=== PATIENT | female | born 1965 | race Caucasian/White ===

== ENCOUNTER → 2017-08-20 | Outpatient (CLI) | payer OTHER ==
[~2017-08-20] MED LIST: ACET-749 PO; ALBU1AER9 INH; ASCO1CAP3 PO; AZEL30SP NAE; BUPR-269 PO; CALC500C70 PO; CYAN500S5 PO; DIPH25CA65 PO; EMTR1TAB PO; FLNIN NAE; GABA-113 PO; MECL1TAB42 PO; MULT-260 PO; NUTR-977 PO; NYSTATIN POWDER TOP; OMEG10002 PO; OXGN; PRAZ2CAP3 PO; PRMVC TOP; QVRINH80 INH; RANI300T2 PO; SYMIN160 INH; TRMCR130WC TOP; VITA1TAB4 PO; VNTHFA/IN INH
--- NOTE | 2017-08-20 15:49 | DIAGNOSTIC IMAGING REPORT ---
MRI OF THE RIGHT KNEE WITHOUT CONTRAST CLINICAL HISTORY: Right knee pain. Arthritis. COMPARISON STUDY: Right knee radiographs June 10, 2017. TECHNIQUE: Utilizing a 1.5 Sunitha magnet and dedicated coil, multiplanar, multiecho imaging of the right knee was performed without intravenous or intraarticular contrast. FINDINGS: Alignment of the right knee is anatomic. There is a small right knee joint effusion. There are multiple tiny intra-articular joint bodies. No suspicious marrow replacement is present. The cruciate and collateral ligaments are intact. There is a subtle free edge tear of the body of the lateral meniscus. The medial meniscus is partially extruded. There is a complex tear of the body and posterior horn of the medial meniscus. A portion of the medial meniscus extends along the medial aspect of the medial femoral condyle. There is an adjacent 1.1 cm T1 and T2 hypointense abnormality that corresponds to the calcified abnormality on radiographs June 10, 2017. This could reflect a joint body. Severe chondrosis within the medial compartment is noted with near complete loss of cartilage. There is osteophytosis and subchondral signal abnormality within the medial tibial plateau. There is moderate chondrosis within the lateral compartment and severe chondrosis within the patellofemoral compartment. IMPRESSION: 1. Severe chondrosis and osteophytosis consistent with osteoarthritis within the medial and patellofemoral compartments of the right knee. Moderate chondrosis within the lateral compartment. 2. Small right knee joint effusion with multiple small intra-articular joint bodies. 3. Complex tear of the body and posterior horn the medial meniscus which is partially extruded. Portion of meniscus extends along the medial aspect of the medial femoral condyle with an adjacent 1.1 cm calcific density that corresponds to the finding on prior radiograph. This could reflect a joint body. 4. Intact cruciate and collateral ligaments. Electronically signed by: Fernando Renteria M.D. 08/20/2017 3:48 PM Dictated Date/Time: 08/20/2017 3:42 PM
== END | disposition home or self-care (01) ==
LOC: C.MRIBC 14:33
PROVIDERS: ATTEND Orthopaedic Surgery
DX: M17.11 Unilateral primary osteoarthritis, right knee (principal); M11.261 Other chondrocalcinosis, right knee; M25.761 Osteophyte, right knee; S83.231A Complex tear of medial meniscus, current injury, right knee, initial encounter; X58.XXXA Exposure to other specified factors, initial encounter

== ENCOUNTER 2017-09-30 08:27 | Inpatient (IN) | payer OTHER ==
[2017-09-12 08:57] VITALS: BMI 40.0
--- NOTE | 2017-09-12 09:36 | PAT Medication Instructions ---
Service Date Sep 12, 2017. Current Home Medication List Albuterol Hfa (Ventolin Hfa), 2 PUFFS INH Q4H PRN for RN Azelastine Hcl-Fluticasone Pro (Dymista), 2 SPRY JORGE BID Beclomethasone Dip (Qvar), 2 PUFFS INH BID Budesonide/Formoterol Fumarate (Symbicort 160/4.5 Inhaler ), 2 PUFFS INH BID Bupropion Hcl Sr (Bupropion Hcl Sr), 1 TAB PO BID Diphenhydramine Hcl (Benadryl Allergy), 1 CAP PO HS Mlylfrrvinalm-Rfkclqxrrdj-Ymtw (Complera), 1 TAB PO HS Enteral Nutrition Formula (Ensure Plus Vanilla), 1 CAN PO TID Estrogens, Conjugated (Premarin), 1 DOSE TOP 3XWEEK Gabapentin (Neurontin), 900 MG PO TID Meclizine Hcl (Meclizine Hcl), 1 TAB PO TID PRN for RN Triamcinolone Acet (Aristocort 0.1%), 1 DOSE TOP PRN [Nystatin Powder], 1 DOSE TOP PRN Medication Instructions For Your Scheduled Surgery - Hold the following medications 24 hours prior to surgery: Triamcinolone Acet (Aristocort 0.1%), 1 DOSE TOP PRN [Nystatin Powder], 1 DOSE TOP PRN - Hold the following medications the morning of surgery: Enteral Nutrition Formula (Ensure Plus Vanilla), 1 CAN PO TID - Take the following medications the morning of surgery with a sip of water OTHERWISE NOTHING TO EAT OR DRINK AFTER MIDNIGHT: Albuterol Hfa (Ventolin Hfa), 2 PUFFS INH Q4H PRN (use if needed; BRING TO HOSPITAL) Azelastine Hcl-Fluticasone Pro (Dymista), 2 SPRY JORGE BID Beclomethasone Dip (Qvar), 2 PUFFS INH BID Budesonide/Formoterol Fumarate (Symbicort 160/4.5 Inhaler ), 2 PUFFS INH BID Gabapentin (Neurontin), 900 MG PO TID Meclizine Hcl (Meclizine Hcl), 1 TAB PO TID PRN Bupropion Hcl Sr (Bupropion Hcl Sr), 1 TAB PO BID - Take the following medications as scheduled the night before surgery: Albuterol Hfa (Ventolin Hfa), 2 PUFFS INH Q4H PRN Azelastine Hcl-Fluticasone Pro (Dymista), 2 SPRY JORGE BID Beclomethasone Dip (Qvar), 2 PUFFS INH BID Budesonide/Formoterol Fumarate (Symbicort 160/4.5 Inhaler ), 2 PUFFS INH BID Gabapentin (Neurontin), 900 MG PO TID Meclizine Hcl (Meclizine Hcl), 1 TAB PO TID PRN Enteral Nutrition Formula (Ensure Plus Vanilla), 1 CAN PO TID Smgrazeshgiba-Cfykogolawg-Oynw (Complera), 1 TAB PO HS (bring to hospital) Diphenhydramine Hcl (Benadryl Allergy), 1 CAP PO HS Bupropion Hcl Sr (Bupropion Hcl Sr), 1 TAB PO BID If you have any questions please call us at [phone] or [phone] or [phone]
[2017-09-12 10:16] LABS: URINE APPEARANCE CLOUDY (CLEAR); URINE BILIRUBIN NEG (NEG); URINE COLOR YELLOW; URINE EPITHELIAL CELL AUTO >30 /lpf (0-5); URINE NITRITE NEG (NEG); URINE PH 6.5 (4.5-7.5); URINE SPECIFIC GRAVITY 1.022 (1.000-1.030); UROBILINOGEN NEG (NEG)
--- NOTE | 2017-09-12 10:17 | DIAGNOSTIC IMAGING REPORT ---
CHEST PREADMISSION(PA/LAT) CLINICAL HISTORY: Preoperative chest COMPARISON STUDY: No previous studies for comparison. FINDINGS: The cardiac and mediastinal contours are normal. There is no evidence of focal pulmonary consolidation. There is no evidence of failure. No pleural effusions are visualized.[ There is an old left-sided rib fracture. IMPRESSION: No active disease in the chest. Electronically signed by: Dinesh Campbell M.D. 09/12/2017 10:15 AM Dictated Date/Time: 09/12/2017 10:15 AM
[2017-09-12 10:21] LABS: MANUAL MICROSCOPIC REQUIRED? NO; REVIEW REQ? NO
[2017-09-12 10:27] LABS: INR 0.9 (0.9-1.1)
--- NOTE | 2017-09-29 18:57 | HISTORY & PHYSICAL EXAMINATION ---
DATE OF ADMISSION: 09/30/2017 HISTORY AND PHYSICAL ADMISSION NOTE CHIEF COMPLAINT: Primary osteoarthritis of the right knee. HISTORY OF PRESENT ILLNES: Sandra is a pleasant 51-year-old female who has been having a several year history of right knee pain. I have been treating her conservatively and given her injections over the past several years. Unfortunately, not helping much with her pain. I sent her for an MRI and the MRI showed advanced degenerative changes in the medial compartment of her knee. We talked extensively about continued conservative treatment, but she wanted to be a little more aggressive. The conservative treatments not working and her knee pains affecting her daily life. I thought it was reasonable to proceed with a knee replacement surgery. She understands the risks, benefits, alternatives to procedure and elected to proceed. She is currently on disability with her HIV. PAST MEDICAL HISTORY: Significant for asthma, benign hypertension, chronic osteoarthritis of the knee, depression, HIV, history of sepsis in 2014, urinary tract infection, acute renal failure MEDICATIONS: Include albuterol 2 puffs every 4 hours as needed, QVAR 80 mcg 2 puffs twice a day, azelastine, fluticasone 2 sprays in each nostril twice a day, Symbicort 2 puffs twice a day, Wellbutrin 200 mg twice a day, Benadryl at night, Complera 1 tab at night, Ensure Plus 3 times a day, Premarin 1 dose 3 times a week, Neurontin 900 mg 3 times a day, Meclizine 25 mg 3 times a day, Aristocort cream as needed, and Nystatin powder as needed. PAST SURGICAL HISTORY: Significant for hysterectomy. ALLERGIES: INCLUDE LEVOFLOXACIN. FAMILY HISTORY: Significant for heart disease and diabetes. SOCIAL HISTORY: She is , rarely drinks, and continues to smoke only few cigarettes a week and is moderately active. REVIEW OF SYSTEMS: She complains of right knee pain. All other pertinent review of systems is negative. PHYSICAL EXAMINATION: GENERAL: She is awake, alert and oriented x3. She is in no apparent distress. She is very pleasant. HEENT: Pupils are equal, round and reactive to light. Extraocular motion intact. Oral mucosa is pink and moist. HEART: Regular rate per radial pulse. LUNGS: Laura symmetrically bilaterally with no audible breath sounds. ABDOMEN: Soft, nontender, nondistended. MUSCULOSKELETAL: On physical examination of the right knee, she has good range of motion from 0-130 degrees. She has no instability. She has severe tenderness to palpation along the medial joint line and over the distal medial femoral condyle. She has no varus or valgus instability. She does have pain with varus stress testing. IMAGING DATA: X-rays of the right knee do show osteoarthritis of the medial compartment with a little bit of joint space narrowing and a small osteophyte formation. MRI of the right knee does show advanced osteoarthritis of the medial compartment of the knee with joint space narrowing and osteophyte formation and possible loose bodies in the medial gutter as well. There is a complete tear and extrusion of the medial meniscus. IMPRESSION: Primary osteoarthritis of the right knee. PLAN: Will proceed with a right total knee arthroplasty. Postoperatively, she will be given vancomycin, per Dr. Wright. We will also start her on aspirin for DVT prophylaxis. She will likely be in the hospital for 2 midnights before being discharged to home with [facility]. TERRIE
[2017-09-30] VITALS (8 sets, daily range): BP systolic 100–133; BP diastolic 68–82; PULSE 54–81; TEMP 36.5–36.9; O2SAT 95–100; Ht 162.6 cm; Wt 107.6 kg
[~2017-09-30] VITALS: Ht 162.6 cm; Wt 107.6 kg
[~2017-09-30 08:27] MED LIST changes: -ACET-749 PO; +ACETAMINOPHEN 500 MG TAB PO SCH; -ALBU1AER9 INH; -ASCO1CAP3 PO; +BUPIVACAINE 0.5 % 5 MG/1 ML PF 10ML VIAL ONE; -CALC500C70 PO; +CEFAZOLIN 2000MG IV PUSH 10 ML IV SCH; -CYAN500S5 PO; +FAMOTIDINE 20 MG TAB PO SCH; -FLNIN NAE; +GABAPENTIN 300 MG CAP PO SCH; +LACTATED RINGER'S 1000ML 1,000 ML IV SCH; -MULT-260 PO; -OMEG10002 PO; -OXGN; -PRAZ2CAP3 PO; -RANI300T2 PO; +ROPIVACAINE 5MG/ML 30 ML 150 MG, BUPIVACAINE 0.5% MPF INJ 30 ML, EpINEphrine HCL INJ 0.... INFIL SCH; +TRANEXAMIC ACID INJ 1,000 MG in SODIUM CHLORIDE 0.9% 100ML 100 ML IV SCH; -VITA1TAB4 PO
[2017-09-30] MEDS ORDERED: VANCOMYCIN INJ 1,750 MG in SODIUM CHLORIDE 0.9% 500ML 500 ML IV SCH (09:00)
[2017-09-30] MEDS: LACTATED RINGER'S 1000ML 500 ML IV ONE (09:17)
--- NOTE | 2017-09-30 09:37 | History & Physical Bridge Note ---
H&P Re-Evaluation Bridge Note: I have examined the patient, reviewed the History & Physical and in the interval since the performance of the History & Physical I have noted the following changes of clinical significance: No changes noted
[2017-09-30] MEDS ORDERED: ATROPINE SULFATE 0.1 MG/ML 5ML SYR IV PRN (10:00)
[2017-09-30] MEDS ORDERED: FENTANYL CITRATE INJ 50 MCG/1 ML 2 ML VIAL IV PRN (10:00)
[2017-09-30] MEDS ORDERED: EpHEDrine SULFATE INJ 50 MG/ML AMP IV PRN (10:00)
[2017-09-30] MEDS ORDERED: ONDANSETRON INJ 2 MG/ML 2 ML VIAL IV PRN ×2 (10:00→15:30)
[2017-09-30] MEDS ORDERED: LACTATED RINGER'S 1000ML 1,000 ML IV SCH (12:15)
[2017-09-30] MEDS ORDERED: MIDAZOLAM HCL 1 MG/ML 2ML VIAL ONE ×2 (12:49)
[2017-09-30] MEDS ORDERED: FENTANYL CITRATE INJ 50 MCG/1 ML 2 ML VIAL ONE (12:49)
[2017-09-30] MEDS ORDERED: ORTHO JOINT ANESTHETIC ONE (13:45)
[2017-09-30] MEDS ORDERED: BACITRACIN 50000 UNIT VIAL ONE (13:45)
[2017-09-30] MEDS ORDERED: PROPOFOL IV EMULSION 10 MG/ML 20 ML VIAL IV ONE (14:57)
[2017-09-30] MEDS ORDERED: LIDOCAINE HCL 2% 2 ML VIAL (20MG/ML) ONE (14:57)
--- NOTE | 2017-09-30 15:20 | [facility] Post Operative Brief Note ---
Immediate Operative Summary Operative Date Sep 30, 2017. Pre-Operative Diagnosis Primary osteoarthritis right knee Post-Operative Diagnosis Primary osteoarthritis right knee Procedure(s) Performed Right Total Knee Arthroplasty Surgeon Dr. Ibrahim Legal Billing Specialist Surgeon(s) Flakito Addison PA-C Estimated Blood Loss 10 ml Findings as above Specimens Permanent a. Right knee bone and tissue Complication(s) None Disposition Recovery Room / PACU
[2017-09-30] MEDS ORDERED: METOCLOPRAMIDE HCL INJ 5 MG/ML 2 ML VIAL IV PRN (15:30)
[2017-09-30] MEDS ORDERED: MECLIZINE HCL 25 MG TAB PO PRN (15:30)
[2017-09-30] MEDS ORDERED: BISACODYL 10 MG SUPP PR PRN (15:30)
[2017-09-30] MEDS ORDERED: SOD PHOSPHATE/SOD BIPHOSPHATE ENEMA 132 ML BTL PR PRN (15:30)
[2017-09-30] MEDS ORDERED: MoRPHine SULFATE 2 MG/ML CARP IV PRN (15:30)
[2017-09-30] MEDS ORDERED: MAGNESIUM HYDROXIDE SUSP 30 ML UDC PO PRN (15:30)
[2017-09-30] MEDS ORDERED: ALBUTEROL HFA 8 GM INHALER INH PRN (15:30)
--- NOTE | 2017-09-30 16:00 | OPERATIVE REPORT ---
DATE OF OPERATION: 09/30/2017 PREOPERATIVE DIAGNOSIS: Primary osteoarthritis of the right knee. POSTOPERATIVE DIAGNOSIS: Same. PROCEDURE: Right total knee arthroplasty. SURGEON: Dr. Kaz Ibrahim. FORESTRY HUNTER: Marty Addison PA-C, whose assistance was necessary for retraction and helping in positioning of the leg. ANESTHESIA: Spinal with a right adductor nerve block. COMPLICATIONS: None. CONDITION: Stable to PACU. IMPLANTS USED: I used a [employer] Vanguard right total knee arthroplasty system with a size 65 femur, 67 tibia, 28 x 8 mm patella and a size 10 posterior stabilized polyethylene insert. All complements were cemented with Palacos-G cement. INDICATIONS: Jorge is a pleasant 51-year-old female who has been dealing with chronic right knee pain. MRI and x-rays were diagnostic for severe medial compartmental arthritis of the right knee with loose bodies. After failing extensive conservative treatment including multiple injections, she has elected to proceed with a right total knee arthroplasty. On 09/30/2017, she arrived at [facility] for the above procedure. She was seen in the preoperative holding area and the operative extremity was identified and signed. She was given a preoperative antibiotic, a spinal anesthetic and a right adductor nerve block. She was taken back to the operating room, laid on the table in supine position and put under basic sedation. The right knee was then prepped and draped in sterile fashion. Time-out was done and the patient and operative extremity was properly identified. A midline incision was made directly over the patella. Dissection was taken down through the fascia and a medial parapatellar arthrotomy was used. The fat pad was left intact. The medial retinaculum was released and the knee was flexed. ACL and PCL and meniscus were then resected. A drill was sent down the center of the femoral canal, followed by an intramedullary starla. Off that starla, a distal femoral cutting block was placed and the distal femur was cut in 5 degrees of valgus and 9 mm was resected. A posterior referencing guide was used to measure the distal femur and the femur measured to be a size 65. Two drill holes were placed in 3 degrees of external rotation. Anterior, posterior and chamfer cuts were then made. A box guide was then placed and the box was resected for the posterior stabilizing component. The proximal tibia was then exposed. A drill was sent down the center of the tibial canal followed by an intramedullary starla. Off that starla, a proximal tibial resection guide was placed and 3 mm was resected off the low medial side. Time was spent then removing any meniscal or cruciate ligament remnants from the posterior aspect of the knee. The tibia then measured to be a size 67. It was set in the appropriate rotation, drilled and then punched. Trial complements were placed. The patella was then everted and 8 mm was resected off the posterior aspect of the patella. The patella measured to be a size 28 and 3 peg holes were drilled and a patellar trial was placed. The knee was brought through a full range of motion and felt to be stable. Trial components were then removed. Final components were then cemented in place with Palacos-G cement. Once cement had hardened, a size 10 posterior stabilized poly seemed to be the best fit. The poly was then snapped into place and the anterior bar was locked. The knee was brought through a full range of motion and felt to be stable. The surrounding soft tissues were injected with 100 mL of orthopedic pain control cocktail. The knee was irrigated with 3 liters of normal saline solution with bacitracin. Two drains were placed. The extensor mechanism was closed with #1 Vicryl, both proximally and distally and #2 FiberWire suture in the superior medial aspect. The skin was closed with 2-0 Vicryl, 3-0 V-Loc suture and rosalind. She was then placed in a soft compressive dressing and taken to the postanesthesia care unit in stable condition. She tolerated the procedure well. I attest to the content of the Intraoperative Record and any orders documented therein. Any exception s are noted below.
--- NOTE | 2017-09-30 16:03 | DIAGNOSTIC IMAGING REPORT ---
R KNEE 1 OR 2 VIEWS ROUTINE HISTORY: 51 years-old Female AP/LATERAL IN PACU RIGHT KNEE status post right knee total joint arthroplasty COMPARISON: Right knee radiographs 06/10/2017 TECHNIQUE: 2 views of the right knee FINDINGS: Status post right knee total joint arthroplasty and patellar resurfacing. Surgical rosalind are present anteriorly with drain in place. Expected post lateral soft tissue swelling and deep tissue air noted. Alignment satisfactory. No periprosthetic fracture or retained foreign body. IMPRESSION: Status post right knee total joint arthroplasty and patellar resurfacing without complication. The above report was generated using voice recognition software. It may contain grammatical, syntax or spelling errors. Electronically signed by: Samy Thomas M.D. 09/30/2017 4:01 PM Dictated Date/Time: 09/30/2017 4:00 PM
--- NOTE | 2017-09-30 16:07 | Anesthesiology Progress Note ---
Anesthesia Post Op Note Date & Time Sep 30, 2017 at 16:07 Vital Signs Pain Intensity: 0 Vital Signs Past 12 Hours Date Time Temp Pulse Resp B/P (MAP) Pulse Ox O2 Delivery O2 Flow Rate FiO2 09/30/17 16:00 36.5 68 16 107/69 95 Nasal Cannula 2 09/30/17 15:50 66 16 108/68 96 Nasal Cannula 2 09/30/17 15:40 69 16 107/67 98 Oxymask 10 09/30/17 15:34 36.2 75 16 105/72 95 Oxymask 10 09/30/17 08:49 36.9 81 20 131/82 97 Room Air Notes Mental Status: alert / awake / arousable, participated in evaluation Pt Amnestic to Procedure: Yes Nausea / Vomiting: adequately controlled Pain: adequately controlled Airway Patency, RR, SpO2: stable & adequate BP & HR: stable & adequate Hydration State: stable & adequate Neuraxial Anesthesia: was administered, sensory block is resolving Anesthetic Complications: no major complications apparent
[2017-09-30] MEDS: SODIUM CHLORIDE 0.9% 1000ML 1,000 ML IV SCH (17:50)
[2017-09-30 18:24] LABS: CREATININE 1.41 mg/dl (0.60-1.20)
[2017-09-30] MEDS ORDERED: INFLUENZA ADMINISTRATION CHARGE ONE (18:30)
[2017-09-30] MEDS ORDERED: INFLUENZA VIRUS QUAD VACCINE 0.5 ML SYR IM. ONE (18:30)
[2017-09-30] MEDS: COMPLERA PO SCH (19:45)
[2017-09-30] MEDS: KETOROLAC TROMETHAMINE 30 MG/ML VIAL IV. SCH (20:52)
[2017-09-30] MEDS: BECLOMETHASONE DIP HFA 80 MCG 8.7G INH INH SCH (20:53)
[2017-09-30] MEDS: BUDESONIDE/FORMOTEROL FUMARATE 160/4.5 60 PUFFS/INHALER INH SCH (20:53)
[2017-09-30] MEDS: GABAPENTIN 300 MG CAP PO SCH (20:54)
[2017-09-30] MEDS: ASPIRIN 325 MG ECTAB PO SCH (20:54)
[2017-09-30] MEDS: DOCUSATE SODIUM 100 MG CAP PO SCH (20:54)
[2017-09-30] MEDS: SENNA 8.6 MG TAB PO SCH (20:55)
[2017-09-30] MEDS: BuPROPion SR 100 MG TABCR PO SCH (20:55)
[2017-09-30] MEDS: ACETAMINOPHEN 500 MG TAB PO SCH (20:56)
[2017-09-30] MEDS ORDERED: VANCOMYCIN INJ 1,500 MG in SODIUM CHLORIDE 0.9% 500ML 500 ML IV SCH (21:00)
[2017-09-30] MEDS ORDERED: VANCOMYCIN INJ 1,500 MG in SODIUM CHLORIDE 0.9% 250ML 250 ML IV SCH (21:00)
[2017-09-30] MEDS ORDERED: [UNRECOGNIZED DRUG - OTHER] PO SCH (21:00)
[2017-09-30] MEDS: OXYCODONE HCL IR 5 MG TAB (IMMEDIATE RELEASE) PO PRN (23:33)
[2017-10-01] MEDS: KETOROLAC TROMETHAMINE 30 MG/ML VIAL IV. SCH ×3 (01:39→13:38)
[2017-10-01 03:16] VITALS: BP 113/75; PULSE 65; TEMP 36.7; O2SAT 96
[2017-10-01] MEDS: SODIUM CHLORIDE 0.9% 1000ML 1,000 ML IV SCH ×2 (03:38→12:34)
[2017-10-01] MEDS: ACETAMINOPHEN 500 MG TAB PO SCH ×3 (05:42→21:22)
--- NOTE | 2017-10-01 06:47 | Discharge Instructions ---
Discharge Instructions Date of Service Oct 01, 2017. Admission Reason for Admission: Right Knee Arthritis Discharge Discharge Diagnosis / Problem: Right Total Knee Discharge Goals Goal(s): Decrease discomfort, Improve function Activity Recommendations Activity Limitations: as noted below . Instructions / Follow-Up Instructions / Follow-Up Activity and Therapy Recommendations: * If you are using [facility] then Physical Therapy will be provided until they feel you are ready to start Outpatient Physical Therapy. If you are not using a Home Health agency then Outpatient Physical Therapy should start about 3-5 days from your day of surgery. Therapy will last about 6-10 weeks * It is important not to put a pillow under your knee when you are relaxing or sleeping. It is just as important to make sure you are getting your knee perfectly straight as it is to regain your knee bend. * You were shown a series of exercises in the hospital. Do these exercises three times each day including the exercises you were shown in physical therapy. * Get up and walk several times each day. For the first four weeks, try not to stand or walk for more than one hour at a time. If you do stand or walk for more than one hour, you will not hurt anything, but your leg will likely swell. * As you feel comfortable, you may change from the walker or crutches to a cane and then to independent walking. Medications: * Narcotic You will likely be sent home from the hospital with a prescription for the narcotic pain medication that worked best throughout your stay. * Aspirin Most patients will be required to take Aspirin 325mg twice a day for 6 weeks after surgery. This is obtained [id number] and a prescription is not necessary. * Other medications may be prescribed for specific circumstances. If you have any questions, please call the office at . * Resume previous home medications unless otherwise instructed TEDs/Elastic Stockings: The white elastic stockings help limit swelling and prevent blood clots from forming in your legs.~ The more you wear them, the more they work. Wear them for six weeks. Showering: You may shower 5 days from the day of surgery. Let the soapy shower water run over the rosalind. Do not scrub or soak the incision. Things To Watch For: * Drainage from the incision site that occurs more than one week after your surgery. * Increased redness at the incision site. * Fever above 102 degrees Fahrenheit. * Unusual chest pain or shortness of breath. * Call [facility] at with any of the above problems Follow-Up Visit: Follow-up with Dr. Ibrahim 2-3 weeks after your day of surgery. An appointment was probably scheduled when you signed-up for surgery in the office. If you have any questions call Office Instructions: More detailed instructions as well as Frequently Asked Questions were provided in a folder by our office when you signed-up for surgery. Please review these instructions when you get home. If you have any further questions or concerns, please feel free to call the office at [phone] Current Hospital Diet Patient's current hospital diet: Regular Diet Discharge Diet Recommended Diet: Regular Diet Procedures Procedures Performed: Right Total Knee Arthroplasty Pending Studies Studies pending at discharge: no Medical Emergencies . Who to Call and When: Medical Emergencies: If at any time you feel your situation is an emergency, please call [phone] immediately. . Non-Emergent Contact Non-Emergency issues call your: Surgeon Call Non-Emergent contact if: wound has increased drainage, wound has increased redness . "Provider Documentation" section prepared by Kaz Ibrahim. . VTE Core Measure Inpt VTE Proph given/why not?: Other Anticoagulation (Aspirin 325 twice a day for 6 weeks)
[2017-10-01 06:58] VITALS: BP 121/75; PULSE 63; TEMP 36.5; O2SAT 95
--- NOTE | 2017-10-01 07:10 | PROGRESS NOTE ---
DATE: 10/01/2017 CHIEF COMPLAINT: Status post right total knee arthroplasty postop day #1. PROGRESS: Sandra was seen and examined at bedside today. Overall, she is doing very well. She says she has very little pain in her knee. She has already been up and ambulating. She has no complaints. PHYSICAL EXAMINATION: RIGHT KNEE: The dressing is clean and dry and the drain is to suction. Her leg is out in full extension. She has active dorsiflexion and plantarflexion of her right ankle. Sensation is intact. LABS: Lab values this morning have not been taken yet. Vital signs are all stable on room air. She is voiding on her own. X-rays postoperatively of the right knee show the prosthesis to be in anatomic alignment without any evidence of fracture, dislocation or loosening. IMPRESSION: Status post right total knee arthroplasty postop day #1. PLAN: At this point she is doing well. She is on aspirin 325 twice a day for DVT prophylaxis. She can be up and ambulating with physical therapy. Will work on pain control today. Tomorrow the nursing staff can change the dressing, pull the drain and I will likely discharge her to home.
[2017-10-01 08:05] LABS: BUN/CREATININE RATIO 7.7 (10-20); CALCIUM 8.6 mg/dl (8.5-10.1); CREATININE 1.44 mg/dl (0.60-1.20); POTASSIUM 3.5 mmol/L (3.5-5.1)
[2017-10-01 08:17] LABS: HEMATOCRIT 39.9 % (37-47); MEAN CELL VOLUME 95.9 fL (80-100); MEAN CORPUSCULAR HEMOGLOBIN 33.2 pg (25-34); MEAN CORPUSCULAR HGB CONC 34.6 g/dl (32-36); PLATELET COUNT 230 K/uL (130-400); RED BLOOD COUNT 4.16 M/uL (4.2-5.4); WHITE BLOOD COUNT 13.74 K/uL (4.8-10.8)
[2017-10-01] MEDS: BECLOMETHASONE DIP HFA 80 MCG 8.7G INH INH SCH ×2 (08:24→21:20)
[2017-10-01] MEDS: BUDESONIDE/FORMOTEROL FUMARATE 160/4.5 60 PUFFS/INHALER INH SCH ×2 (08:24→21:21)
[2017-10-01] MEDS: DOCUSATE SODIUM 100 MG CAP PO SCH ×2 (08:25→21:21)
[2017-10-01] MEDS: MULTIVITAMIN TAB PO SCH (08:25)
[2017-10-01] MEDS: ASPIRIN 325 MG ECTAB PO SCH ×2 (08:25→21:21)
[2017-10-01] MEDS: PANTOprazole SOD 40 MG TAB PO SCH (08:26)
[2017-10-01] MEDS: BuPROPion SR 100 MG TABCR PO SCH ×2 (08:26→21:22)
[2017-10-01] MEDS: GABAPENTIN 300 MG CAP PO SCH ×3 (08:26→21:22)
[2017-10-01] MEDS: OXYCODONE HCL IR 5 MG TAB (IMMEDIATE RELEASE) PO PRN ×3 (08:34→22:39)
--- NOTE | 2017-10-01 09:15 | Anesthesiology Progress Note ---
Anesthesia Post Op Note Date & Time Oct 01, 2017 at 09:14 Vital Signs Vital Signs Past 12 Hours Date Time Temp Pulse Resp B/P (MAP) Pulse Ox O2 Delivery O2 Flow Rate FiO2 10/01/17 08:04 Room Air 10/01/17 06:58 36.5 63 20 121/75 (90) 95 Room Air 10/01/17 03:16 36.7 65 16 113/75 (88) 96 Room Air 09/30/17 23:30 Room Air 09/30/17 23:04 36.6 69 16 133/73 (93) 95 Room Air Notes Mental Status: alert / awake / arousable, participated in evaluation Pt Amnestic to Procedure: Yes Nausea / Vomiting: adequately controlled Pain: adequately controlled Airway Patency, RR, SpO2: stable & adequate BP & HR: stable & adequate Hydration State: stable & adequate Neuraxial Anesthesia: sensory block resolved Anesthetic Complications: no major complications apparent
[2017-10-01 11:43] VITALS: BP 121/82; PULSE 68; TEMP 36.8; O2SAT 97
[2017-10-01 14:50] VITALS: BP 119/71; PULSE 66; TEMP 36.8; O2SAT 95
[2017-10-01] MEDS: COMPLERA PO SCH (17:43)
[2017-10-01] MEDS ORDERED: NURSING VERBAL MED ORDER ONE (19:45)
[2017-10-01] MEDS: KETOROLAC TROMETHAMINE 15 MG/ML VIAL IV. SCH (21:19)
[2017-10-01] MEDS: SENNA 8.6 MG TAB PO SCH (21:22)
[2017-10-01 22:59] VITALS: BP 124/70; PULSE 69; TEMP 36.8; O2SAT 96
[2017-10-02] MEDS: KETOROLAC TROMETHAMINE 15 MG/ML VIAL IV. SCH ×2 (01:22→07:53)
[2017-10-02] MEDS: ACETAMINOPHEN 500 MG TAB PO SCH (05:44)
[2017-10-02 06:04] VITALS: BP 138/85; PULSE 64; TEMP 36.5; O2SAT 95
[2017-10-02] MEDS ORDERED: RXC5 PO (07:19)
[2017-10-02] MEDS: OXYCODONE HCL IR 5 MG TAB (IMMEDIATE RELEASE) PO PRN (07:21)
[2017-10-02] MEDS ORDERED: ASPEC325 PO (07:22)
--- NOTE | 2017-10-02 07:36 | PROGRESS NOTE ---
DATE: 10/02/2017 DATE: 10/02/2017 CHIEF COMPLAINT: Status post right total knee arthroplasty postop day #2. PROGRESS: Sandra was seen and examined at bedside today. Overall, she is doing very well. She is happy with her progress. She is ambulating well with physical therapy. Her pain is controlled. She has no complaints. PHYSICAL EXAMINATION: RIGHT KNEE: The dressing is clean and dry. Her leg is out in full extension. The drains have been pulled. IMPRESSION: Status post right total knee arthroplasty postop day #2. PLAN: At this point, she is doing well and happy with the progress. She is ambulating well with physical therapy and her pain is controlled. We will discharge her to home later today.
--- NOTE | 2017-10-02 07:50 | DISCHARGE SUMMARY ---
DISCHARGE DIAGNOSIS: Primary osteoarthritis of the right knee. PROCEDURE: Right total knee arthroplasty on 09/30/[address] Kaz Ibrahim. DISCHARGE INSTRUCTIONS: 1. Aspirin 325 mg twice a day for 6 weeks. 2. CRISTOBAL hose stockings for 6 weeks. 3. Oxycodone 5-10 mg every 4 hours as needed for pain. 4. Albuterol 2 puffs every 4 hours as needed. 6. QVAR 2 puffs twice a day. 7. Symbicort 2 puffs twice a day. 8. Wellbutrin 200 mg twice a day. 9. Benadryl daily. 10. Complera 1 tab at night. 11. Premarin 1 dose topical 3 times a week. 12. Neurontin 900 mg 3 times a day. 13. Meclizine 25 mg 3 times a day as needed. 14. Aristocort cream as needed. 15. Follow up with Dr. Ibrahim in 2 weeks. 16. Call the office of Dr. Ibrahim with any questions or concerns. HOSPITAL COURSE: Sandra is a pleasant 51-year-old female who presented to my office with chronic right knee pain. I treated her for several years with injections. After failing extensive conservative treatment, she elected to proceed with a right total knee arthroplasty. On 09/30/[address] [facility] and underwent a right knee replacement without complications. She had a spinal anesthetic and a right adductor nerve block. Postoperatively, she was discharged to general orthopedic floor. Her hospital course was uneventful. She was placed on aspirin 325 mg twice a day for DVT prophylaxis. Her H&H was stable at 13.8 and 39.9. She was up and ambulating well with physical therapy and her pain was well controlled. On postop day #2, the dressings were changed and drains were pulled. Her pain was controlled and she continued to work well with physical therapy. She was subsequently discharged to home with [facility] [email or web address] and the above instructions. TERRIE
[2017-10-02] MEDS: BUDESONIDE/FORMOTEROL FUMARATE 160/4.5 60 PUFFS/INHALER INH SCH (08:58)
[2017-10-02] MEDS: BECLOMETHASONE DIP HFA 80 MCG 8.7G INH INH SCH (08:58)
[2017-10-02] MEDS: PANTOprazole SOD 40 MG TAB PO SCH (08:58)
[2017-10-02] MEDS: GABAPENTIN 300 MG CAP PO SCH (08:59)
[2017-10-02] MEDS: MULTIVITAMIN TAB PO SCH (08:59)
[2017-10-02] MEDS: ASPIRIN 325 MG ECTAB PO SCH (09:23)
[2017-10-02] MEDS: DOCUSATE SODIUM 100 MG CAP PO SCH (09:23)
[2017-10-02] MEDS: BuPROPion SR 100 MG TABCR PO SCH (09:24)
[2017-10-02 12:40] VITALS: BP 138/85; PULSE 64; TEMP 36.5; O2SAT 95
== END 2017-10-02 13:09 | disposition home health service (06) | DRG 470 ==
LOC: C.ACU 08:27 → C.3E 09:50 → ENRESERV 15:58
PROVIDERS: ADMIT Orthopaedic Surgery; ATTEND Orthopaedic Surgery
PROC: 0SRC0J9 Replacement of Right Knee Joint with Synthetic Substitute, Cemented, Open Approach (ICD-10-PCS; principal; 2017-09-30 11:30)
DX: M17.11 Unilateral primary osteoarthritis, right knee (principal); Z68.41 Body mass index [BMI] 40.0-44.9, adult; J45.909 Unspecified asthma, uncomplicated; N18.3 Chronic kidney disease, stage 3 (moderate); F41.9 Anxiety disorder, unspecified; F43.10 Post-traumatic stress disorder, unspecified; F32.9 Major depressive disorder, single episode, unspecified; F17.210 Nicotine dependence, cigarettes, uncomplicated; E66.01 Morbid (severe) obesity due to excess calories; Z23 Encounter for immunization; Z21 Asymptomatic human immunodeficiency virus [HIV] infection status; Z79.51 Long term (current) use of inhaled steroids; Z79.890 Hormone replacement therapy; Z79.899 Other long term (current) drug therapy

== ENCOUNTER 2025-06-08 10:20 | Inpatient (IN) ==
--- NOTE | 2025-06-08 11:20 | Emergency Department Note ---
Impression & Plan Anemia Admission ED Provider Note HPI: History obtained from patient. 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 Patient states that she had some routine lab work done earlier this week that showed a hemoglobin of 5.6. Patient states she was contacted by her outpatient provider and advised to come to the emergency department to be assessed. Patient denies any melena, denies any michelle blood per rectum, patient states that she is felt kind of weak and tired recently but she denies any other focal symptoms. ROS: - Per HPI Differential Diagnosis: Lower GI bleed, upper GI bleed, symptomatic anemia, iron deficiency anemia, anemia of chronic disease, metastatic disease/cancer, amongst other potential pathologies. *Outpatient medications and allergy history reviewed. PE: General: Alert, obese, no acute distress HEENT: Normocephalic, trachea midline Eyes: Extraocular eye movement is intact, no scleral erythema Pulmonary: Clear to auscultation bilaterally, no wheezing Cardio: Regular rate and rhythm GI: Abdomen is soft to palpation, rectal examination does not show any evidence of any gross bleeding, occult stool testing is negative (examination performed with female RN at the bedside) : No suprapubic tenderness MSK: No evidence of trauma or malformation of the extremities, no edema Skin: No evidence of rash Neuro: Alert, no focal deficits Psychiatric: Cooperative INDEPENDENT INTERPRETATIONS: monitoring engineer: (As interpreted by myself): - An order was placed for continuous cardiac monitoring - Patient was noted to be in sinus rhythm with a rate of 90 EKG: (As interpreted by myself): Rate: 102 Rhythm: Sinus tachycardia Intervals: Within normal limits ST changes: No ST elevation Time: 1053 Interventions provided in ED: - IV fluid bolus, PRBC transfusion Medical Decision Making: IV was established and lab work obtained, patient was placed on cardiac exercise specialist. Lab work shows no leukocytosis, hemoglobin is low at 5.7, MCV is low at 69.9, platelet count is slightly elevated at 451. CMP does not show any evidence of any critical findings. Troponin is negative x 1, there is no acute kidney injury. CT angiography of the abdomen was obtained as the patient noted history of mesenteric stent and concern for "leaking". CT angiography does not show any evidence of any extravasation, there is good reconstitution around the SMA stent where there is noted to be a thrombus. Patient is currently on Xarelto. There is also concern for lesion within the ascending colon that will require further characterization with colonoscopy to rule out cancer. Patient also has a nonspecific lesion on her lower right lung on CT imaging that will require further evaluation. Occult stool testing was performed at the bedside and is negative. Given this I do of concern for iron deficiency and also concern for possible new malignancy given findings in the colon and findings in the right lower lung. I discussed all of this with the patient and with her significant other at the bedside, patient is in agreement for admission. Patient was ordered 2 units packed red blood cells for her anemia, she signed consent for transfusion. I discussed the patient's presentation with the on-call midlevel provider for [facility] and the patient was placed for admission to the service of Dr. Robles. Consultants/Discussions held with other healthcare providers: - Hospitalist, Dr. Robles Disposition discussion held by myself with: - Patient Diagnosis: 1. Microcytic anemia, acute, nonspecific 2. Nonspecific lesion of the ascending colon on CT imaging of the abdomen pelvis 3. Nonspecific lesion of the right lower lung on CT imaging of the abdomen and pelvis 4. History of mesenteric thrombus, on anticoagulation Disposition: Admission Puneet Kramer DO Emergency Medicine Past Med/Surg History Problem List (Updated 06/08/25 @ 14:44 by Puneet Kramer DO) HIV (human immunodeficiency virus infection) Abnormal computed tomography angiography (CTA) of abdomen and pelvis Anemia (Acute) Encounter for pre-operative examination Acute renal failure (Acute) HIV (human immunodeficiency virus infection) (Acute) Hypokalemia (Acute) Osteoarthritis of right knee Overdose (Acute) Sepsis (Acute) Situational depression (Acute) Urinary tract infection (Acute) PTSD (post-traumatic stress disorder) Human immunodeficiency virus (HIV) seropositivity (Chronic 11/21/12) DR. MULTANI ([facility]) FOLLOWS PATIENT Medical History (Updated 06/08/25 @ 14:44 by Puneet Kramer DO) Degenerative disc disease Osteoarthritis Chronic kidney disease STAGE 3 "COUNTS ARE IMPROVING" GERD (gastroesophageal reflux disease) History of cancer of vagina S/P surgical intervention and chemotherapy Anxiety and depression Asthma LAST USED RESCUE INHALER 2 MONTHS AGO Surgical History History of hysterectomy History of total knee replacement RT History of colonoscopy History of tooth extraction History of tonsillectomy and adenoidectomy History of myringotomy Family History Mother Family history of diabetes mellitus Father Family history of diabetes mellitus Grandfather (Maternal) Family history of diabetes mellitus Grandmother (Maternal) Family history of diabetes mellitus Social History Smoking Status: Current every day smoker Cigarettes Per Day: 3 CIG DAILY; Second Hand Exposure: Yes; Do You Dip or Chew Tobacco: No; Hx Alcohol Use: No Hx Substance Use: No Preferred Language: Polish Beliefs That Will Affect Care: None Current Living Situation: Family Feels Safe at Home: Yes Assistive Devices: Denture - Upper and Denture - Lower Allergies Allergies Allergy/AdvReac Type Severity Reaction Status Date / Time levofloxacin AdvReac Intermediate Nausea/Vomiting Verified 06/08/25 13:47 "extreme" Home Meds Home Medications Medication Instructions Recorded Confirmed bupropion HCl 200 mg tablet,12 hr 200 mg PO QAM 09/23/19 06/08/25 sustained-release (Wellbutrin SR) gabapentin 300 mg capsule 300 mg PO QAM 09/23/19 06/08/25 albuterol sulfate 90 mcg/actuation 2 puffs inhalation Q6H PRN 04/18/20 06/08/25 aerosol inhaler (Ventolin HFA) Shortness Of Breath Or Wheezing mirtazapine 15 mg tablet 15 mg PO HS 06/12/20 06/08/25 bictegravir 50 mg-emtricitabine 1 tab PO QAM 06/08/25 06/08/25 200 mg-tenofovir alafenam 25 mg tablet (Biktarvy) clopidogrel 75 mg tablet 75 mg PO QPM 06/08/25 06/08/25 empagliflozin 10 mg tablet 10 mg PO QAM 06/08/25 06/08/25 (Jardiance) escitalopram oxalate 20 mg tablet 20 mg PO QAM 06/08/25 06/08/25 fluticasone propionate 220 2 puff inhalation BID 06/08/25 06/08/25 mcg/actuation HFA aerosol inhaler gabapentin 600 mg tablet 600 - 1,200 mg PO TID 06/08/25 06/08/25 insulin aspart U-100 100 unit/mL 1 sliding scale dose subcut TID 06/08/25 06/08/25 (3 mL) subcutaneous pen (Novolog FlexPen U-100 Insulin aspart) insulin glargine 100 unit/mL (3 28 unit subcut HS 06/08/25 06/08/25 mL) subcutaneous pen (Lantus Solostar U-100 Insulin) levocetirizine 5 mg tablet 2.5 mg PO QPM 06/08/25 06/08/25 montelukast 10 mg tablet 10 mg PO HS 06/08/25 06/08/25 pantoprazole 20 mg tablet,delayed 20 mg PO QAM 06/08/25 06/08/25 release prazosin 1 mg capsule 1 mg PO HS 06/08/25 06/08/25 rivaroxaban 20 mg tablet (Xarelto) 20 mg PO HS 06/08/25 06/08/25 rosuvastatin 10 mg tablet 10 mg PO HS 06/08/25 06/08/25 Results & Data (ED) Vital Signs Vital Signs - 24 hr 06/08/25 10:27 06/08/25 11:30 06/08/25 11:59 Temperature 36.5 C Temperature Source Temporal Artery Scan Pulse Rate - Lying Pulse Rate - Sitting Pulse Rate - Standing Pulse Rate 105 H 94 H Pulse Rate from SpO2 Sensor Pulse Rhythm Respiratory Rate 18 22 Respiratory Effort / Characteristics Non-Labored Spontaneous Respiratory Depth Normal Respiratory Pattern Regular Blood Pressure - Lying Blood Pressure - Sitting Blood Pressure- Standing Blood Pressure 132/79 121/64 Blood Pressure Mean 96 86 Pulse Oximetry 99 96 97 Oxygen Delivery Method Room Air Room Air Room Air Sepsis Recent Fever Within 48 Hours No Sepsis New/Unexplained Change in Mental Status N/A Sepsis Action Taken by Nursing No Action Required 06/08/25 12:00 06/08/25 12:00 06/08/25 12:19 Temperature Temperature Source Pulse Rate - Lying 100 H Pulse Rate - Sitting 99 H Pulse Rate - Standing 101 H Pulse Rate 89 84 Pulse Rate from SpO2 Sensor Pulse Rhythm Respiratory Rate 20 Respiratory Effort / Characteristics Respiratory Depth Respiratory Pattern Blood Pressure - Lying 121/57 L Blood Pressure - Sitting 125/69 Blood Pressure- Standing 118/64 Blood Pressure 130/68 Blood Pressure Mean 97 Pulse Oximetry 99 Oxygen Delivery Method Room Air Sepsis Recent Fever Within 48 Hours Sepsis New/Unexplained Change in Mental Status Sepsis Action Taken by Nursing 06/08/25 12:42 06/08/25 13:00 06/08/25 13:30 Temperature Temperature Source Pulse Rate - Lying Pulse Rate - Sitting Pulse Rate - Standing Pulse Rate 102 H 85 86 Pulse Rate from SpO2 Sensor 101 H Pulse Rhythm Respiratory Rate 23 18 18 Respiratory Effort / Characteristics Respiratory Depth Respiratory Pattern Blood Pressure - Lying Blood Pressure - Sitting Blood Pressure- Standing Blood Pressure 118/64 129/66 121/68 Blood Pressure Mean 82 100 91 Pulse Oximetry 100 100 99 Oxygen Delivery Method Room Air Room Air Sepsis Recent Fever Within 48 Hours Sepsis New/Unexplained Change in Mental Status Sepsis Action Taken by Nursing 06/08/25 13:43 06/08/25 14:03 06/08/25 14:18 Temperature 37.1 C 37.2 C 37.4 C Temperature Source Oral Oral Oral Pulse Rate - Lying Pulse Rate - Sitting Pulse Rate - Standing Pulse Rate 87 87 87 Pulse Rate from SpO2 Sensor Pulse Rhythm Regular Respiratory Rate 18 20 18 Respiratory Effort / Characteristics Respiratory Depth Respiratory Pattern Blood Pressure - Lying Blood Pressure - Sitting Blood Pressure- Standing Blood Pressure 149/66 H 120/72 133/65 Blood Pressure Mean 93 88 87 Pulse Oximetry 99 100 100 Oxygen Delivery Method Sepsis Recent Fever Within 48 Hours Sepsis New/Unexplained Change in Mental Status Sepsis Action Taken by Nursing Laboratory Data 06/08/25 11:00 06/08/25 11:00 Lab Results 06/08/25 06/08/25 06/08/25 Range/Units 11:00 11:11 12:00 WBC 8.01 (4.8-10.8) K/ul RBC 3.49 L (4.20-5.40) M/uL Hgb 5.7 L* (12.0-16.0) g/dl Hct 24.4 L (37.0-47.0) % MCV 69.9 L (80.0-100.0) fL MCH 16.3 L (25.0-34.0) pg MCHC 23.4 L (32.0-36.0) g/dL RDW Std Deviation 56.3 H (36.4-46.3) fL RDW Coeff of Ranjit 23.9 H (11.5-14.5) % Plt Count 451 H (130-400) K/uL MPV 10.5 (9.4-12.4) fL Absolute Nucleated RBC 0.10 (0.00-0.12) K/uL Nucleated RBC % (auto) 1.2 % PT 10.9 (9.0-12.0) Seconds INR 1.0 (0.9-1.1) APTT 23 (21-31) Seconds PTT Ratio 0.9 Sodium 138 (136-145) mmol/L Potassium 4.1 (3.5-5.1) mmol/L Chloride 109 H (98-107) mmol/L Carbon Dioxide 22 (21-32) mmol/L Anion Gap 7 (3-11) BUN 12 (6-23) mg/dl Creatinine 0.93 (0.6-1.2) mg/dl Est Cr Clr Drug Dosing Not Reportable eGFR 69.93 BUN/Creatinine Ratio 12.9 (10-20) Glucose 180 H (70-99(Fasting)) mg/dl Calcium 8.6 (8.6-10.3) mg/dl Total Bilirubin 0.8 (0.2-1.0) mg/dl AST 17 (13-39) U/L ALT 10 (7-52) U/L Alkaline Phosphatase 50 (34-104) U/L Troponin I High Sens 4.6 (0-14) pg/ml Total Protein 6.3 (6.0-8.3) gm/dl Albumin 3.9 (3.4-5.0) gm/dl Globulin 2.4 L (2.5-4.0) gm/dl Albumin/Globulin Ratio 1.6 (0.9-2) POC Stool Occult Blood Negative (Negative) Blood Type B Positive Blood Type Recheck Antibody Screen NEGATIVE Crossmatch See Detail 06/08/25 Range/Units 12:19 WBC (4.8-10.8) K/ul RBC (4.20-5.40) M/uL Hgb (12.0-16.0) g/dl Hct (37.0-47.0) % MCV (80.0-100.0) fL MCH (25.0-34.0) pg MCHC (32.0-36.0) g/dL RDW Std Deviation (36.4-46.3) fL RDW Coeff of Ranjit (11.5-14.5) % Plt Count (130-400) K/uL MPV (9.4-12.4) fL Absolute Nucleated RBC (0.00-0.12) K/uL Nucleated RBC % (auto) % PT (9.0-12.0) Seconds INR (0.9-1.1) APTT (21-31) Seconds PTT Ratio Sodium (136-145) mmol/L Potassium (3.5-5.1) mmol/L Chloride (98-107) mmol/L Carbon Dioxide (21-32) mmol/L Anion Gap (3-11) BUN (6-23) mg/dl Creatinine (0.6-1.2) mg/dl Est Cr Clr Drug Dosing eGFR BUN/Creatinine Ratio (10-20) Glucose (70-99(Fasting)) mg/dl Calcium (8.6-10.3) mg/dl Total Bilirubin (0.2-1.0) mg/dl AST (13-39) U/L ALT (7-52) U/L Alkaline Phosphatase (34-104) U/L Troponin I High Sens (0-14) pg/ml Total Protein (6.0-8.3) gm/dl Albumin (3.4-5.0) gm/dl Globulin (2.5-4.0) gm/dl Albumin/Globulin Ratio (0.9-2) POC Stool Occult Blood (Negative) Blood Type Blood Type Recheck B Positive Antibody Screen Crossmatch Administered Medications Discontinued Medications Sodium Chloride (Nss) 1,000 mls @ 999 mls/hr IV .Q1H1M ONE Stop: 06/08/25 12:18 Last Infusion: 06/08/25 12:49 Dose: Infused Documented By: Admin: 06/08/25 11:54 Dose: 999 mls/hr Documented By: CARLOS Ioversol (Optiray 320 125ml) 119 ml IV ONCE ONE Stop: 06/08/25 11:50 Last Admin: 06/08/25 11:50 Dose: 119 ml Documented By: GARY Imaging Data Radiologist's Impression: Abdomen/Pelvis CTA 06/08/25 11:20 CT ANGIOGRAM OF THE ABDOMEN AND PELVIS CLINICAL HISTORY: Low hemoglobin. Reported history of mesenteric ischemia. COMPARISON STUDY: CT angiogram of the abdomen and pelvis dated 06/12/2020. Chest CT dated 08/19/2015. TECHNIQUE: Following the IV administration of 119 cc of Optiray 320, CT angiogram of the abdomen and pelvis was performed from the lung bases the proximal femora. Images are reviewed in the axial, sagittal, and coronal planes. 3-D MIPS images are created and assessed. IV contrast was administered without complication. A dose lowering technique was utilized adhering to the principles of ALARA. CT DOSE: 1515.36 mGy.cm FINDINGS: Lower chest: The heart is normal in size and without pericardial effusion. There is a 5 mm right lower lobe pulmonary nodule on image #10. This is pathologically determined, but new from a [address] No airspace consolidation or pleural effusion is identified. Liver: The contrast-enhanced liver is normal in size, contour, and attenuation. There is no intrahepatic biliary ductal dilatation. The main portal veins appear patent. Gallbladder: Surgically absent noting clips in the gallbladder fossa. Spleen: The spleen is enlarged, measuring 17.8 cm in length. There is heterogeneous arterial phase enhancement. Pancreas: Unremarkable. Adrenal glands: There is an indeterminate 13 mm left adrenal nodule. The right adrenal nodule is normal in appearance. Kidneys: The contrast enhanced kidneys are normal in size and without hydronephrosis. The kidneys enhance symmetrically. Abdominal aorta and iliac arteries: The abdominal aorta is normal in course and caliber noting minimal atherosclerotic calcification. The abdominal aorta is widely patent. No dissection is seen. The iliac arteries are widely patent bilaterally. Major branches of the abdominal aorta: There is a long stent seen at the origin of the superior mesenteric artery. The stent is thrombosed. The distal vessel is patent. The celiac trunk and inferior mesenteric artery are widely patent. There are collaterals between the SMA/KERRIE circulation. Hepatic arterial anatomy is conventional. The splenic artery is patent. Single bilateral renal arteries are widely patent. Bowel: There is mild to moderate clonic fecal retention. No bowel obstruction is seen. The appendix is well-visualized and normal. A 3 cm enhancing mucosal mass is suggested in the ascending colon on axial image #203. Peritoneum: There is no intraperitoneal free air or abdominal ascites. Lymphadenopathy: None. Pelvic viscera: The bladder is normal as visualized. The uterus is surgically absent. No adnexal lesion is seen. Skeletal structures: The skeletal structures are osteopenic. There is a mild to moderate superior endplate compression deformity of T12. This is is chronic appearing, but new from 06/12/2020. No destructive bony lesions are seen. Arthritic change is seen in the hips. IMPRESSION: 1. Findings are highly suspicious for a 3 cm mucosal mass lesion of the ascending colon. Follow-up with colonoscopy is recommended as a colonic neoplasm is to be excluded. 2. There is a long stent is seen in the proximal superior mesenteric artery. The stent is thrombosed, with distal reconstitution of the vessel. There are collateral vessels between the SMA/KERRIE circulation and this is of indeterminate chronicity. 3. No abnormal bowel loops are identified. 4. Otherwise unremarkable CT angiogram of the abdominal aorta and its major branches 5. A 5 mm right lower lobe pulmonary nodule is pathologically indeterminant, but new from a [address] This is somewhat concerning given the findings in the right colon. A follow-up chest CT in 3 months time is recommended for reevaluation and for full assessment of the thorax. 6. Splenomegaly. 7. Additional findings as above. ACT 112: Positive. There are findings on this exam that require communication between the performing entity and the patient following Patient Test Result Information Act ([place] Act 112) guidelines. Electronically signed by: Leon Barrett M.D. 06/08/2025 1:03 PM Discharge Plan Visit Data Chief Complaint: Referred by Doctor Stated Complaint: DOC REF,VERY LOW HGB ED Provider: Puneet Kramer Discharge Problem: Anemia Patient Disposition: Admitted As Inpatient Condition: Fair Forms Stand Alone Forms: My [email or web address] [email or web address] Prescriptions Prescriptions: No Action gabapentin 300 mg capsule 300 mg PO QAM Patient Comments: Take w/ 600mg capsule to equal 900mg every morning bupropion HCl [Wellbutrin SR] 200 mg tablet sustained-release 12 hr 200 mg PO QAM Patient Comments: Originally written for Bupropion 200mg: Take 200mg by mouth twice daily - 06/08/25 albuterol sulfate [Ventolin HFA] 90 mcg/actuation HFA aerosol inhaler 2 puffs INH Q6H PRN (Reason: Shortness Of Breath Or Wheezing) mirtazapine 15 mg tablet 15 mg PO HS gabapentin 600 mg tablet 600 - 1,200 mg PO TID Patient Comments: Take 600mg in the morning with 300mg to equal 900mg. Then take 600mg in the afternoon, then take 1200mg at bedtime - 06/08/25 Rx Instructions: Take 600mg in the morning with 300mg to equal 900mg. Then take 600mg in the afternoon, then take 1200mg at bedtime - 06/08/25 prazosin 1 mg capsule 1 mg PO HS Patient Comments: Originally written for Prazosin 1mmg by mouth at bedtime - 06/08/25 clopidogrel 75 mg tablet 75 mg PO QPM pantoprazole 20 mg tablet,delayed release (DR/EC) 20 mg PO QAM montelukast 10 mg tablet 10 mg PO HS fluticasone propionate 220 mcg/actuation HFA aerosol inhaler 2 puff INHALATION BID escitalopram oxalate 20 mg tablet 20 mg PO QAM insulin aspart U-100 [Novolog FlexPen U-100 Insulin] 100 unit/mL (3 mL) insulin pen 1 sliding scale dose SUBCUT TID Patient Comments: Add 1 unit for every 20 over 200BSG reading rosuvastatin 10 mg tablet 10 mg PO HS insulin glargine [Lantus Solostar U-100 Insulin] 100 unit/mL (3 mL) insulin pen 28 unit SUBCUT HS levocetirizine 5 mg tablet 2.5 mg PO QPM Patient Comments: Originally written for Prazosin 1mmg by mouth at bedtime - 06/08/25 Xarelto 20 mg tablet 20 mg PO HS Jardiance 10 mg tablet 10 mg PO QAM Biktarvy 50-200-25 mg tablet 1 tab PO QAM Referrals Referrals: Esther Olvera PA-C [Primary Care Provider] -
[2025-06-08 11:34] LABS: Hematocrit (blood only) 24.4 % (37.0-47.0); Hemoglobin 5.7 g/dl (12.0-16.0); Mean Corpuscular Hemoglobin 16.3 pg (25.0-34.0); Mean Corpuscular Volume 69.9 fL (80.0-100.0); Platelet Count 451 K/uL (130-400); RDW Standard Deviation 56.3 fL (36.4-46.3); Red Blood Count 3.49 M/uL (4.20-5.40); White Blood Count 8.01 K/ul (4.8-10.8)
[2025-06-08 11:38] LABS: Alanine Aminotransferase 10 U/L (7-52); Albumin Globulin Ratio 1.6 (0.9-2); Alkaline Phosphatase 50 U/L (34-104); Anion Gap 7 (3-11); Bilirubin,Total 0.8 mg/dl (0.2-1.0); Blood Urea Nitrogen 12 mg/dl (6-23); Calcium 8.6 mg/dl (8.6-10.3); Carbon Dioxide 22 mmol/L (21-32); Chloride 109 mmol/L (98-107); Globulin 2.4 gm/dl (2.5-4.0); Glucose 180 mg/dl (70-99(Fasting)); Potassium 4.1 mmol/L (3.5-5.1); Sodium 138 mmol/L (136-145); Total Protein 6.3 gm/dl (6.0-8.3)
[2025-06-08 11:46] LABS: INR 1.0 (0.9-1.1); Partial Thromboplastin Time 23 Seconds (21-31); Prothrombin Time 10.9 Seconds (9.0-12.0)
[2025-06-08] MEDS ORDERED: SODIUM CHLORIDE 0.9% 100 ML IV PRN ×2 (11:48→22:58)
[2025-06-08] MEDS: OPTIRAY 320 125ml IV ONE (11:50)
[2025-06-08] MEDS: SODIUM CHLORIDE 0.9% 1,000 ML IV ONE (11:54)
--- NOTE | 2025-06-08 13:04 | CT Scan Report ---
CT ANGIOGRAM OF THE ABDOMEN AND PELVIS CLINICAL HISTORY: Low hemoglobin. Reported history of mesenteric ischemia. COMPARISON STUDY: CT angiogram of the abdomen and pelvis dated 06/12/2020. Chest CT dated 08/19/2015. TECHNIQUE: Following the IV administration of 119 cc of Optiray 320, CT angiogram of the abdomen and pelvis was performed from the lung bases the proximal femora. Images are reviewed in the axial, sagit kareem, and coronal planes. 3-D MIPS images are created and assessed. IV contrast was administered witho ut complication. A dose lowering technique was utilized adhering to the principles of ALARA. CT DOSE: 1515.36 mGy.cm FINDINGS: Lower chest: The heart is normal in size and without pericardial effusion. There is a 5 mm right lowe r lobe pulmonary nodule on image #10. This is pathologically determined, but new from a [address] No airspace consolidation or pleural effusion is identified. Liver: The contrast-enhanced liver is normal in size, contour, and attenuation. There is no intrahepa tic biliary ductal dilatation. The main portal veins appear patent. Gallbladder: Surgically absent noting clips in the gallbladder fossa. Spleen: The spleen is enlarged, measuring 17.8 cm in length. There is heterogeneous arterial phase en hancement. Pancreas: Unremarkable. Adrenal glands: There is an indeterminate 13 mm left adrenal nodule. The right adrenal nodule is norm al in appearance. Kidneys: The contrast enhanced kidneys are normal in size and without hydronephrosis. The kidneys enh ance symmetrically. Abdominal aorta and iliac arteries: The abdominal aorta is normal in course and caliber noting minima l atherosclerotic calcification. The abdominal aorta is widely patent. No dissection is seen. The stella ac arteries are widely patent bilaterally. Major branches of the abdominal aorta: There is a long stent seen at the origin of the superior mesen teric artery. The stent is thrombosed. The distal vessel is patent. The celiac trunk and inferior mes enteric artery are widely patent. There are collaterals between the SMA/KERRIE circulation. Hepatic kiran rial anatomy is conventional. The splenic artery is patent. Single bilateral renal arteries are widel y patent. Bowel: There is mild to moderate clonic fecal retention. No bowel obstruction is seen. The appendix i s well-visualized and normal. A 3 cm enhancing mucosal mass is suggested in the ascending colon on a xial image #203. Peritoneum: There is no intraperitoneal free air or abdominal ascites. Lymphadenopathy: None. Pelvic viscera: The bladder is normal as visualized. The uterus is surgically absent. No adnexal lesi on is seen. Skeletal structures: The skeletal structures are osteopenic. There is a mild to moderate superior end plate compression deformity of T12. This is is chronic appearing, but new from 06/12/2020. No destruct sarah bony lesions are seen. Arthritic change is seen in the hips. IMPRESSION: 1. Findings are highly suspicious for a 3 cm mucosal mass lesion of the ascending colon. Follow-up colonoscopy is recommended as a colonic neoplasm is to be excluded. 2. There is a long stent is seen in the proximal superior mesenteric artery. The stent is thrombosed, with distal reconstitution of the vessel. There are collateral vessels between the SMA/KERRIE circulati on and this is of indeterminate chronicity. 3. No abnormal bowel loops are identified. 4. Otherwise unremarkable CT angiogram of the abdominal aorta and its major branches 5. A 5 mm right lower lobe pulmonary nodule is pathologically indeterminant, but new from a [address] [facility] CT. This is somewhat concerning given the findings in the right colon. A follow-up chest CT in 3 mo nths time is recommended for reevaluation and for full assessment of the thorax. 6. Splenomegaly. 7. Additional findings as above. ACT 112: Positive. There are findings on this exam that require communication between the performing entity and the patient following Patient Test Result Information Act ([place] Act 112) guidelines. Electronically signed by: Leon Barrett M.D. 06/08/2025 1:03 PM
--- NOTE | 2025-06-08 13:43 | History & Physical Report ---
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 Escalera at [facility], history of reocclusion of SMA s/p mechanical thrombectomy of SMA with placement of 4 stents on 06/15/[address] Escalera at [facility] on Xarelto, history of aortic dissection, hepatic steatosis, GERD, lumbar DDD, osteoarthritis, age-related osteoporosis, migraines, HIV on Biktarvy, depression/VICKIE and other problems listed below who presented to the ED for evaluation via recommendation of her primary ID physician after routine outpatient lab work revealed a critical Hgb value of 5.6 on 06/07/25. #Anemia #Abnormal CTA abd/pelvis --> c/f possible colonic malignancy #Recent unintentional wt loss, poor appetite CTA abd/pelvis: findings are highly suspicious for a 3cm mucosal mass lesion of the ascending colon (follow-up with colonoscopy is recommended as a colonic neoplasm is to be excluded), 5mm right lower lobe pulmonary nodule is pathologically indeterminant but new from a [address] (somewhat concerning given the findings in the right colon; follow-up chest CT in 3 months time is recommended for reevaluation and for full assessment of the thorax), splenomegaly Hgb 5.7 in ED FOBT negative 2U PRBCs ordered by ED provider Follow repeat H/H IV PPI BID GI consult Clear liquid diet for now NPO at OK --> ? possible colonscopy 2morrow if Hgb improving Check anemia panel Check peripheral smear F/u outpt chest CT in 3mo to evaluate new RLL pulm nodule Hold Plavix, Xarelto Recently started on mirtazapine for appetite stimulation --> continue #HIV F/w [facility], Dr. Multani II On Biktarvy --> continue #Mesenteric arterial disease #H/o occluded SMA s/p mechanical thrombectomy on 06/13/20 #H/o RRA thrombus s/p mechanical thrombectomy on 06/13/20 #H/o reocclusion of SMA s/p repeat mechanical thrombectomy w/ placement on 4 stents on 06/15/20 #Chronic anticoagulation use on Xarelto F/w [facility] vascular surgery, Dr. Escalera Hold Xarelto, Plavix as per above CTA abd/pelvis: a long stent is seen in the proximal superior mesenteric artery --> the stent is thrombosed with distal reconstitution of the vessel and collateral vessels between the SMA/KERRIE circulation and this is of indeterminate chronicity Will need to resume Xarelto, Plavix CHERRIE ISO underlying SMA stent thrombosis once anemia improves #History of aortic dissection Tx'd medically F/w [facility] vascular surgery as per above Chest CTA done 10/22/22: stable short segment type B aortic dissection of the distal aortic arch #Chronic tobacco use Smoking cessation encouraged #VICKIE/depression Continue Lexapro, Wellbutrin #Insulin-requiring DMII Hold home regimen Basal/bolus regimen while inpt Glycemic pharm consult Hgb A1c 5.5% 9 days ago Follow BSG checks ACHS #Lumbar DDD Continue gabapentin #Asthma Stable Continue Flovent, Singulair #HLD Continue statin #GERD Hold po PPI while on IV PPI #CKD stage IIIa Cr stable Baseline Cr ~1.0-1.3 per chart review Continue to monitor Avoid nephrotoxic agents as able #Splenomegaly Noted on CTA abd/pelvis Outpt f/u advised #Indeterminate 13mm L adrenal nodule Noted on CTA abd/pelvis Outpt f/u advised #Age-related osteoporosis On alendronate --> hold while inpt DVT Prophylaxis: SCDs/TEDs for now --> hold chemical AC ISO above Code Status: FULL CODE Disposition: Admit to PCU Patient seen in collaboration with Dr. Robles. Please see addendum. I spent a total of 78 minutes coordinating, documenting, and providing care for this patient excluding time spent in the performance of separately billed services or time spent by another provider/QHP. This included personally reviewing all current laboratories and imaging studies, medical reconciliation, outpatient chart review and discussion with specialists. This chart was completed in part utilizing Speech Voice Recognition Software. Grammatical errors, random word insertions, pronoun errors, and incomplete sentences are an occasional consequence of this system due to software limitations, ambient noise, and hardware issues. Any formal questions or concerns about the content, text, or information contained within the body of this dictation should be directly addressed to the provider for clarification. 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 Escalera at [facility], history of reocclusion of SMA s/p mechanical thrombectomy of SMA with placement of 4 stents on 06/15/[address] Escalera at [facility] on Xarelto, history of aortic dissection, hepatic steatosis, GERD, lumbar DDD, osteoarthritis, age-related osteoporosis, migraines, HIV on Biktarvy, depression/VICKIE and other problems listed below who presented to the ED for evaluation via recommendation of her primary ID physician after routine outpatient lab work revealed a critical Hgb v alue of 5.6 on 06/07/25. History obtained from the patient, discussion with ED provider and associated chart review. Patient endorses some fatigue and "overall tiredness" over the past month and a half. Also endorses unintentional weight loss in the setting of poor appetite over the past several weeks. Family also notes that she appears more pale in regard to her skin coloration. Denies any melena or hematochezia. No prior history of anemia per patient. No recently recorded fevers. Denies any SOB, sinus congestion, chest pain, abdominal pain, dysuria or increased urinary frequency. On Biktarvy given history of HIV. Follows with [facility]. On chronic anticoagulation therapy with Xarelto given history of SMA occlusion and RRA thrombus. Last dose of Xarelto given yesterday evening. Chronic tobacco use - smokes 1 pack of cigarettes/week. Rare alcohol use. No recreational drug use. Initial laboratory workup in ED notable for Hgb 5.7; 2U PRBCs ordered by ED provider. FOBT negative. Allergies Allergy/AdvReac Type Severity Reaction Status Date / Time levofloxacin AdvReac Intermediate Nausea/Vomiting Verified 06/08/25 13:47 "extreme" Home Medications Medication Instructions Recorded Confirmed Type bupropion HCl 200 mg tablet,12 hr 200 mg PO QAM 09/23/19 06/08/25 History sustained-release (Wellbutrin SR) gabapentin 300 mg capsule 300 mg PO QAM 09/23/19 06/08/25 History albuterol sulfate 90 mcg/actuation 2 puffs inhalation Q6H PRN 04/18/20 06/08/25 History aerosol inhaler (Ventolin HFA) Shortness Of Breath Or Wheezing mirtazapine 15 mg tablet 15 mg PO HS 06/12/20 06/08/25 History alendronate 70 mg tablet 70 mg PO WK 06/08/25 06/08/25 History bictegravir 50 mg-emtricitabine 1 tab PO QAM 06/08/25 06/08/25 History 200 mg-tenofovir alafenam 25 mg tablet (Biktarvy) clopidogrel 75 mg tablet 75 mg PO QPM 06/08/25 06/08/25 History empagliflozin 10 mg tablet 10 mg PO QAM 06/08/25 06/08/25 History (Jardiance) escitalopram oxalate 20 mg tablet 20 mg PO QAM 06/08/25 06/08/25 History fluticasone propionate 220 2 puff inhalation BID 06/08/25 06/08/25 History mcg/actuation HFA aerosol inhaler gabapentin 600 mg tablet 600 - 1,200 mg PO TID 06/08/25 06/08/25 History insulin aspart U-100 100 unit/mL 1 sliding scale dose subcut TID 06/08/25 06/08/25 History (3 mL) subcutaneous pen (Novolog FlexPen U-100 Insulin aspart) insulin glargine 100 unit/mL (3 28 unit subcut HS 06/08/25 06/08/25 History mL) subcutaneous pen (Lantus Solostar U-100 Insulin) levocetirizine 5 mg tablet 2.5 mg PO QPM 06/08/25 06/08/25 History montelukast 10 mg tablet 10 mg PO HS 06/08/25 06/08/25 History pantoprazole 20 mg tablet,delayed 20 mg PO QAM 06/08/25 06/08/25 History release prazosin 1 mg capsule 1 mg PO HS 06/08/25 06/08/25 History rivaroxaban 20 mg tablet (Xarelto) 20 mg PO HS 06/08/25 06/08/25 History rosuvastatin 10 mg tablet 10 mg PO HS 06/08/25 06/08/25 History Past Med/Surg History Problem List (Updated 06/08/25 @ 15:43 by Cristy Lozada PA-C) History of aortic dissection HIV (human immunodeficiency virus infection) Abnormal computed tomography angiography (CTA) of abdomen and pelvis Anemia (Acute) Encounter for pre-operative examination Acute renal failure (Acute) HIV (human immunodeficiency virus infection) (Acute) Hypokalemia (Acute) Osteoarthritis of right knee Overdose (Acute) Sepsis (Acute) Situational depression (Acute) Urinary tract infection (Acute) PTSD (post-traumatic stress disorder) Human immunodeficiency virus (HIV) seropositivity (Chronic 11/21/12) DR. MULTANI ([facility]) FOLLOWS PATIENT Medical History (Updated 06/08/25 @ 15:43 by Cristy Lozada PA-C) Degenerative disc disease Osteoarthritis Chronic kidney disease STAGE 3 "COUNTS ARE IMPROVING" GERD (gastroesophageal reflux disease) History of cancer of vagina S/P surgical intervention and chemotherapy Anxiety and depression Asthma LAST USED RESCUE INHALER 2 MONTHS AGO Surgical History History of hysterectomy History of total knee replacement RT History of colonoscopy History of tooth extraction History of tonsillectomy and adenoidectomy History of myringotomy Family History Mother Family history of diabetes mellitus Father Family history of diabetes mellitus Grandfather (Maternal) Family history of diabetes mellitus Grandmother (Maternal) Family history of diabetes mellitus Social History Smoking Status: Current every day smoker Cigarettes Per Day: 3 CIG DAILY; Second Hand Exposure: Yes; Do You Dip or Chew Tobacco: No; Hx Alcohol Use: No Hx Substance Use: No Preferred Language: Wolof Beliefs That Will Affect Care: None Current Living Situation: Family Feels Safe at Home: Yes Assistive Devices: Denture - Upper and Denture - Lower Review of Systems Review of Systems: At least ten systems reviewed and negative, except as noted in the HPI. Physical Exam Physical Exam: General: Obese F, vitals as above, NAD, sitting up in bed, very pleasant, conversing appropriately, A+Ox3, family at bedside HEENT: Normocephalic, atraumatic, conjunctivae normal, oropharynx somewhat dry Respiratory: Normal respiratory effort, lungs clear to auscultation bilaterally Cardiovascular: Regular rate, rhythm, normal peripheral pulses, no BLE edema Abdomen/GI: Normal bowel sounds, soft, nontender to palpation in all quadrants Extremities/MSK: No cyanosis or clubbing, extremities motor strength intact, moves all extremitie Neurologic: No overt focal deficits, CN's II-XI not formally tested but appear grossly intact bilaterally. Skin: No rashes, pale coloration, warm/dry Results & Data Results & Data Vital Signs (Past 12 Hours) Vital Signs Temp Pulse Resp BP Pulse Ox O2 Del Method 06/08/25 12:19 84 06/08/25 11:59 97 Room Air 06/08/25 10:27 36.5 C 105 H 18 132/79 99 Room Air Laboratory Results Short CBC 06/08/25 Range/Units 11:00 WBC 8.01 (4.8-10.8) K/ul Hgb 5.7 L* (12.0-16.0) g/dl Hct 24.4 L (37.0-47.0) % Plt Count 451 H (130-400) K/uL BMP 06/08/25 11:00 Sodium 138 Potassium 4.1 Chloride 109 H Carbon Dioxide 22 BUN 12 Creatinine 0.93 Glucose 180 H Calcium 8.6 Liver Function 06/08/25 Range/Units 11:00 Total Bilirubin 0.8 (0.2-1.0) mg/dl AST 17 (13-39) U/L ALT 10 (7-52) U/L Alkaline Phosphatase 50 (34-104) U/L Albumin 3.9 (3.4-5.0) gm/dl Diagnostic Findings Abdomen/Pelvis CTA 06/08/25 11:20 CT ANGIOGRAM OF THE ABDOMEN AND PELVIS CLINICAL HISTORY: Low hemoglobin. Reported history of mesenteric ischemia. COMPARISON STUDY: CT angiogram of the abdomen and pelvis dated 06/12/2020. Chest CT dated 08/19/2015. TECHNIQUE: Following the IV administration of 119 cc of Optiray 320, CT angiogram of the abdomen and pelvis was performed from the lung bases the proximal femora. Images are reviewed in the axial, sagittal, and coronal planes. 3-D MIPS images are created and assessed. IV contrast was administered without complication. A dose lowering technique was utilized adhering to the principles of ALARA. CT DOSE: 1515.36 mGy.cm FINDINGS: Lower chest: The heart is normal in size and without pericardial effusion. There is a 5 mm right lower lobe pulmonary nodule on image #10. This is pathologically determined, but new from a [address] No airspace consolidation or pleural effusion is identified. Liver: The contrast-enhanced liver is normal in size, contour, and attenuation. There is no intrahepatic biliary ductal dilatation. The main portal veins appear patent. Gallbladder: Surgically absent noting clips in the gallbladder fossa. Spleen: The spleen is enlarged, measuring 17.8 cm in length. There is heterogeneous arterial phase enhancement. Pancreas: Unremarkable. Adrenal glands: There is an indeterminate 13 mm left adrenal nodule. The right adrenal nodule is normal in appearance. Kidneys: The contrast enhanced kidneys are normal in size and without hydronephrosis. The kidneys enhance symmetrically. Abdominal aorta and iliac arteries: The abdominal aorta is normal in course and caliber noting minimal atherosclerotic calcification. The abdominal aorta is widely patent. No dissection is seen. The iliac arteries are widely patent bilaterally. Major branches of the abdominal aorta: There is a long stent seen at the origin of the superior mesenteric artery. The stent is thrombosed. The distal vessel is patent. The celiac trunk and inferior mesenteric artery are widely patent. There are collaterals between the SMA/KERRIE circulation. Hepatic arterial anatomy is conventional. The splenic artery is patent. Single bilateral renal arteries are widely patent. Bowel: There is mild to moderate clonic fecal retention. No bowel obstruction is seen. The appendix is well-visualized and normal. A 3 cm enhancing mucosal mass is suggested in the ascending colon on axial image #203. Peritoneum: There is no intraperitoneal free air or abdominal ascites. Lymphadenopathy: None. Pelvic viscera: The bladder is normal as visualized. The uterus is surgically absent. No adnexal lesion is seen. Skeletal structures: The skeletal structures are osteopenic. There is a mild to moderate superior endplate compression deformity of T12. This is is chronic appearing, but new from 06/12/2020. No destructive bony lesions are seen. Arthritic change is seen in the hips. IMPRESSION: 1. Findings are highly suspicious for a 3 cm mucosal mass lesion of the ascending colon. Follow-up with colonoscopy is recommended as a colonic neoplasm is to be excluded. 2. There is a long stent is seen in the proximal superior mesenteric artery. The stent is thrombosed, with distal reconstitution of the vessel. There are collateral vessels between the SMA/KERRIE circulation and this is of indeterminate chronicity. 3. No abnormal bowel loops are identified. 4. Otherwise unremarkable CT angiogram of the abdominal aorta and its major branches 5. A 5 mm right lower lobe pulmonary nodule is pathologically indeterminant, but new from a [address] This is somewhat concerning given the findings in the right colon. A follow-up chest CT in 3 months time is recommended for reevaluation and for full assessment of the thorax. 6. Splenomegaly. 7. Additional findings as above. ACT 112: Positive. There are findings on this exam that require communication between the performing entity and the patient following Patient Test Result Information Act ([place] Act 112) guidelines. Electronically signed by: Leon Barrett M.D. 06/08/2025 1:03 PM Medications Administered Discontinued Medications Sodium Chloride (Nss) 1,000 mls @ 999 mls/hr IV .Q1H1M ONE Stop: 06/08/25 12:18 Last Infusion: 06/08/25 12:49 Dose: Infused Documented By: Admin: 06/08/25 11:54 Dose: 999 mls/hr Documented By: CARLOS Ioversol (Optiray 320 125ml) 119 ml IV ONCE ONE Stop: 06/08/25 11:50 Last Admin: 06/08/25 11:50 Dose: 119 ml Documented By: GARY Code Status & VTE Plan Code Status FULL CODE Supervising Physician Co-Signing Physician Notes Attending Addendum: Case reviewed with the advanced practitioner. I have personally performed a history and physical examination on the patient. I have reviewed the advanced practitioner's documentation on the date of service referenced in note, and I agree with, and take responsibility for the plan of care. please refer to her notes for full details patient seen and examined, records reviewed by myself as well on exam, patient seen resting in bed, sitting up, comfortable states she feels tired but otherwise feels ok no shortness of breath, chest pain, dizziness denies abdominal pain, melena/hematochezia no other symptoms VS noted and reviewed oriented x3, not in distress, speaks in sentences with no effort nor accessory muscle use normal rate, regular rhythm, no murmurs clear breath sounds bilaterally non distended, soft, nontender no bipedal edema, erythema, warmth no neuro deficits all labs, imaging noted and reviewed ASSESSMENT AND PLAN> ANEMIA, MICROCYTIC, MACROCYTIC ASCENDING COLON MASS ON XARELTO AND PLAVIX FOR SMA OCCLUSION/S/P STENT PLACEMENT HIV INFECTION -- Hg 5.7 2 units PRBC ordered repeat H&H after transfusion - denies melena/hematochezia - anemia panel peripheral smear - possible GI bleed from colon mass? GI consulted other diagnoses and plan of care as per advanced practitioner's notes I spent a total of 35 minutes coordinating, documenting, and providing care for this patient, excluding time spent in the performance of separately billed services or time spent by another provider/QHP. Meir Robles MD (1) Anemia Anemia type: unspecified type Qualified Code(s): D64.9 - Anemia, unspecified (3) HIV (human immunodeficiency virus infection) HIV symptom status: unspecified Qualified Code(s): Z21 - Asymptomatic human immunodeficiency virus [HIV] infection status
[2025-06-08 14:49] LABS: Iron 15 mcg/dl (35-150); Transferrin 359 mg/dl (200-360)
[2025-06-08 14:50] LABS: Total Iron Binding Cap Calc 503 mcg/dl (250-450); Transferrin (FE) Percent Satur 3 % (15-50)
[2025-06-08 15:11] LABS: Folate (Folic Acid),Ser orPlas 13.48 ng/ml (>5.38)
[2025-06-08 15:12] LABS: Vitamin B12 369.0 pg/ml (180-914)
[2025-06-08 15:19] LABS: Ferritin 2.7 ng/ml (8-388)
[2025-06-08 16:50] LABS: Hematocrit (blood only) 25.5 % (37.0-47.0); Hemoglobin 6.4 g/dl (12.0-16.0)
--- NOTE | 2025-06-08 17:45 | Electrocardiogram Report ---
Test Reason : Blood Pressure : */* mmHG Vent. Rate : 102 BPM Atrial Rate : 102 BPM P-R Int : 144 ms QRS Dur : 82 ms QT Int : 358 ms P-R-T Axes : 29 -11 3 degrees QTcB Int : 466 ms Sinus tachycardia Low voltage QRS possible Inferior infarct (cited on or before 12-Jun-2020) Nonspecific ST abnormality Abnormal ECG When compared with ECG of 12-Jun-2020 20:47, Vent. rate has increased by 39 bpm Minimal criteria for Anterior infarct are now Present Confirmed by Elroy Young ([id number]) on 06/08/2025 5:45:37 PM Referred By: REFERRED SELF Confirmed By: Elroy Young
[2025-06-08] MEDS ORDERED: GLUCOSE 40% GEL 15 GM TUBE PO PRN (19:35)
[2025-06-08] MEDS ORDERED: DEXTROSE 50% 50 ML SYRINGE IV PRN (19:35)
[2025-06-08] MEDS ORDERED: PHARMACY GLYCEMIC MGMT CONSULT PRN (19:35)
[2025-06-08] MEDS ORDERED: MAGNESIUM HYDROXIDE SUSP 30 ML UDC PO PRN (19:35)
[2025-06-08] MEDS ORDERED: ONDANSETRON INJ 2 MG/ML 2 ML VIAL IV PRN (19:35)
[2025-06-08] MEDS ORDERED: GLUCAGON FOR INJ 1 MG VIAL SQ PRN (19:35)
[2025-06-08] MEDS ORDERED: ACETAMINOPHEN 325 MG TAB PO PRN (19:35)
[2025-06-08] MEDS ORDERED: POLYETHYLENE (MIRALAX) 17 GM PACK PO PRN (19:35)
[2025-06-08] MEDS ORDERED: GLUCOSE 10 TAB/TUBE PO PRN (19:35)
[2025-06-08] MEDS ORDERED: CARBOHYDRATES FOR HYPOGLYCEMIA PO PRN (19:35)
[2025-06-08] MEDS: CETIRIZINE HCL 10 MG TABLET PO SCH (20:21)
[2025-06-08] MEDS: PANTOprazole 40 MG/10 ML SYR IV SCH (20:21)
[2025-06-08] MEDS: MIRTAZAPINE TAB 15 MG TAB PO SCH (20:25)
[2025-06-08] MEDS: GABAPENTIN 600 MG TAB PO SCH (20:25)
[2025-06-08] MEDS: PRAZOSIN HCL 1 MG CAP PO SCH (20:25)
[2025-06-08] MEDS: MONTELUKAST SODIUM 10 MG TABLET PO SCH (20:26)
[2025-06-08] MEDS: ROSUVASTATIN CALCIUM 10 MG TAB PO SCH (20:26)
[2025-06-08] MEDS: INSULIN ASPART PER UNIT CHARGE SC SCH (20:27)
[2025-06-08] MEDS ORDERED: LANTUS PER UNIT CHARGE SQ SCH (21:00)
[2025-06-08 21:36] LABS: Hematocrit (blood only) 29.3 % (37.0-47.0); Hemoglobin 7.9 g/dl (12.0-16.0)
[2025-06-08] MEDS ORDERED: Nursing to Pharmacy Communication SCH (22:45)
[2025-06-09] MEDS: BIKTARVY: ORDER AWAITING ACTION SCH (00:13)
[2025-06-09 04:12] LABS: Hematocrit (blood only) 31.3 % (37.0-47.0); Hemoglobin 8.6 g/dl (12.0-16.0); Immature Granulocytes # (auto) 0.03 K/uL (0.01-0.20); Immature Granulocytes % (auto) 0.3 %; Mean Corpuscular Hemoglobin 20.5 pg (25.0-34.0); Mean Corpuscular Volume 74.7 fL (80.0-100.0); Platelet Count 378 K/uL (130-400); RDW Standard Deviation 62.4 fL (36.4-46.3); Red Blood Count 4.19 M/uL (4.20-5.40); White Blood Count 9.01 K/ul (4.8-10.8)
[2025-06-09 04:38] LABS: Alanine Aminotransferase 9.0 U/L (7-52); Albumin Globulin Ratio 1.7 (0.9-2); Alkaline Phosphatase 39.0 U/L (34-104); Anion Gap 5.0 (3-11); Bilirubin,Total 1.4 mg/dl (0.2-1.0); Blood Urea Nitrogen 9.0 mg/dl (6-23); Calcium 8.0 mg/dl (8.6-10.3); Carbon Dioxide 24.0 mmol/L (21-32); Chloride 113.0 mmol/L (98-107); Creatinine Clr Calc Pharmacy 76.9 ml/min; Globulin 2.1 gm/dl (2.5-4.0); Glucose 92.0 mg/dl (70-99(Fasting)); Magnesium 2.0 mg/dl (1.7-2.4); Potassium 3.3 mmol/L (3.5-5.1); Sodium 142.0 mmol/L (136-145); Total Protein 5.7 gm/dl (6.0-8.3)
[2025-06-09 04:40] LABS: Anisocytosis Present; Hypochromasia Present; Polychromasia 1+; Tear Drop Cells 1+
[2025-06-09] MEDS: INSULIN ASPART PER UNIT CHARGE SC SCH (05:58)
[2025-06-09] MEDS: POTASSIUM CHLORIDE CRTAB 20 MEQ TABCR PO STA ×2 (06:02→08:09)
[2025-06-09] MEDS: ESCITALOPRAM OXALATE 20 MG TAB PO SCH (08:10)
[2025-06-09] MEDS: GABAPENTIN 600 MG TAB PO SCH (08:10)
[2025-06-09] MEDS: FLUTICASONE FUROATE 200MCG 14 PUFFS/INHALER INH SCH (08:11)
[2025-06-09] MEDS: GABAPENTIN 300 MG CAP PO SCH (08:11)
[2025-06-09] MEDS: BIKTARVY PO SCH (09:13)
--- NOTE | 2025-06-09 10:54 | Gastrointestinal Consultation ---
Date of Consultation June 09, 2025 Assessment & Plan (1) Anemia: (2) Abnormal CT scan, colon: Plan -Clear liquids today -NPO after midnight with exception of bowel prep -Colonoscopy on 06/10/2025 for further evaluation -Continue to monitor H/H Supervising Physician Co-Signing Physician Notes I saw and examined this patient with our nurse practitioner and agree with her assessment and plan. No signs of overt bleeding hemoglobin improved post transfusions. CT scan suspicious for right-sided colon lesion. Will proceed with colonoscopy in a.m. 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 She presented to the ED after being advised to seek emergent evaluation by her ID after outpatient labs indicated profound anemia. Initial H/H was 5.7/24.4 upon presentation to [facility]. Symptomatically she reports chronic fatigue and unintentional weight loss. She denies constipation, diarrhea, or GI bleeding, but notes she has had a poor appetite. She does take chronic Xarelto due to SMA occlusion and RRA thrombus. Patient had a CT scan of the abdomen/pelvis that suggests a 3 cm ascending colon mass. She notes her grandfather had colon cancer. She estimates her last colonoscopy was 10+ years ago by Dr. Santiago of [facility]. She tells me this was unremarkable. She has since been given multiple units PRBCs and H/H is now 8.6/31.3. FOBT negative in the ED. Allergies Allergy/AdvReac Type Severity Reaction Status Date / Time levofloxacin AdvReac Intermediate Nausea/Vomiting Verified 06/08/25 13:47 "extreme" Home Medications Medication Instructions Recorded Confirmed Type bupropion HCl 200 mg tablet,12 hr 200 mg PO QAM 09/23/19 06/08/25 History sustained-release (Wellbutrin SR) gabapentin 300 mg capsule 300 mg PO QAM 09/23/19 06/08/25 History albuterol sulfate 90 mcg/actuation 2 puffs inhalation Q6H PRN 04/18/20 06/08/25 History aerosol inhaler (Ventolin HFA) Shortness Of Breath Or Wheezing mirtazapine 15 mg tablet 15 mg PO HS 06/12/20 06/08/25 History alendronate 70 mg tablet 70 mg PO WK 06/08/25 06/08/25 History bictegravir 50 mg-emtricitabine 1 tab PO QAM 06/08/25 06/08/25 History 200 mg-tenofovir alafenam 25 mg tablet (Biktarvy) clopidogrel 75 mg tablet 75 mg PO QPM 06/08/25 06/08/25 History empagliflozin 10 mg tablet 10 mg PO QAM 06/08/25 06/08/25 History (Jardiance) escitalopram oxalate 20 mg tablet 20 mg PO QAM 06/08/25 06/08/25 History fluticasone propionate 220 2 puff inhalation BID 06/08/25 06/08/25 History mcg/actuation HFA aerosol inhaler gabapentin 600 mg tablet 600 - 1,200 mg PO TID 06/08/25 06/08/25 History insulin aspart U-100 100 unit/mL 1 sliding scale dose subcut TID 06/08/25 06/08/25 History (3 mL) subcutaneous pen (Novolog FlexPen U-100 Insulin aspart) insulin glargine 100 unit/mL (3 28 unit subcut HS 06/08/25 06/08/25 History mL) subcutaneous pen (Lantus Solostar U-100 Insulin) levocetirizine 5 mg tablet 2.5 mg PO QPM 06/08/25 06/08/25 History montelukast 10 mg tablet 10 mg PO HS 06/08/25 06/08/25 History pantoprazole 20 mg tablet,delayed 20 mg PO QAM 06/08/25 06/08/25 History release prazosin 1 mg capsule 1 mg PO HS 06/08/25 06/08/25 History rivaroxaban 20 mg tablet (Xarelto) 20 mg PO HS 06/08/25 06/08/25 History rosuvastatin 10 mg tablet 10 mg PO HS 06/08/25 06/08/25 History Patient History Medical History (Updated 06/09/25 @ 11:34 by Benton Munoz DO) Degenerative disc disease Osteoarthritis Chronic kidney disease STAGE 3 "COUNTS ARE IMPROVING" GERD (gastroesophageal reflux disease) History of cancer of vagina S/P surgical intervention and chemotherapy Anxiety and depression Asthma LAST USED RESCUE INHALER 2 MONTHS AGO Surgical History History of hysterectomy History of total knee replacement RT History of colonoscopy History of tooth extraction History of tonsillectomy and adenoidectomy History of myringotomy Family History Mother Family history of diabetes mellitus Father Family history of diabetes mellitus Grandfather (Maternal) Family history of diabetes mellitus Grandmother (Maternal) Family history of diabetes mellitus Social History Smoking Status: Current every day smoker Tobacco Type: Cigarettes Cigarettes Per Day: 1 pack a week; Second Hand Exposure: Yes; Do You Dip or Chew Tobacco: No; Hx Alcohol Use: No Hx Substance Use: No Preferred Language: Kiswahili Communication Ability: Effective Raw Scales Operator Required: No Beliefs That Will Affect Care: None Current Living Situation: Spouse Feels Safe at Home: Yes Safety Concerns: Feels Safe At This Time Assistive Devices: None Review of Systems Constitutional: + fatigue, + malaise and + weight loss; no fever and no chills Gastrointestinal: no abdominal pain, no change in bowel habits, no constipation, no diarrhea/loose stools and no blood in stools Physical Exam Constitutional: well developed Respiratory: normal respiratory effort Cardiovascular: Rate/Rhythm: regular rate Gastrointestinal (Abdomen): normal bowel sounds, soft, nontender, no hepatosplenomegaly Psychiatric: Orientation: alert and oriented x 3 Results & Data Vital Signs (Past 12 Hours) Vital Signs Temp Pulse Pulse Resp BP BP Pulse Ox 06/09/25 09:00 81 06/09/25 09:00 06/09/25 07:44 36.9 C 82 18 115/63 98 06/09/25 02:31 36.6 C 79 16 120/65 96 06/09/25 01:50 36.6 C 78 16 123/66 97 06/09/25 00:50 36.6 C 78 16 124/66 96 06/09/25 00:50 36.6 C 78 16 124/66 97 06/09/25 00:20 36.6 C 82 16 126/63 97 06/09/25 00:16 84 06/09/25 00:13 90 06/09/25 00:05 36.5 C 85 16 115/60 97 06/08/25 23:44 36.6 C 97 H 18 122/61 100 O2 Del Method 06/09/25 09:00 06/09/25 09:00 Room Air 06/09/25 07:44 Room Air 06/09/25 02:31 06/09/25 01:50 06/09/25 00:50 06/09/25 00:50 06/09/25 00:20 06/09/25 00:16 06/09/25 00:13 06/09/25 00:05 06/08/25 23:44 Laboratory Results Laboratory Results - last 48 hr 06/08/25 06/08/25 06/08/25 11:00 11:00 11:11 WBC 8.01 RBC 3.49 L Hgb 5.7 L* Hct 24.4 L MCV 69.9 L MCH 16.3 L MCHC 23.4 L RDW Std Deviation 56.3 H RDW Coeff of Ranjit 23.9 H Plt Count 451 H MPV 10.5 Immature Gran % (Auto) Neut % (Auto) Lymph % (Auto) [facility] % (Auto) Eos % (Auto) Baso % (Auto) Neut # (Auto) Lymph # (Auto) [facility] # (Auto) Eos # (Auto) Baso # (Auto) Immature Gran # (Auto) Absolute Nucleated RBC 0.10 Nucleated RBC % (auto) 1.2 Polychromasia Hypochromasia Anisocytosis Tear Drop Cells Peripher Smr Path Cons Cancelled PT 10.9 INR 1.0 APTT 23 PTT Ratio 0.9 Sodium 138 Potassium 4.1 Chloride 109 H Carbon Dioxide 22 Anion Gap 7 BUN 12 Creatinine 0.93 Est Cr Clr Drug Dosing Not Reportable eGFR 69.93 BUN/Creatinine Ratio 12.9 Glucose 180 H POC Glucose Calcium 8.6 Phosphorus Magnesium Iron 15 L TIBC 503 H Transferrin 359 Transferrin % Sat 3 L Ferritin 2.7 L Total Bilirubin 0.8 AST 17 ALT 10 Alkaline Phosphatase 50 Troponin I High Sens 4.6 Total Protein 6.3 Albumin 3.9 Globulin 2.4 L Albumin/Globulin Ratio 1.6 Vitamin B12 369 Folate 13.48 POC Stool Occult Blood Blood Type B Positive Blood Type Recheck Antibody Screen NEGATIVE Crossmatch See Detail 06/08/25 06/08/25 06/08/25 12:00 12:19 16:24 WBC RBC Hgb 6.4 L* Hct 25.5 L MCV MCH MCHC RDW Std Deviation RDW Coeff of Ranjit Plt Count MPV Immature Gran % (Auto) Neut % (Auto) Lymph % (Auto) [facility] % (Auto) Eos % (Auto) Baso % (Auto) Neut # (Auto) Lymph # (Auto) [facility] # (Auto) Eos # (Auto) Baso # (Auto) Immature Gran # (Auto) Absolute Nucleated RBC Nucleated RBC % (auto) Polychromasia Hypochromasia Anisocytosis Tear Drop Cells Peripher Smr Path Cons PT INR APTT PTT Ratio Sodium Potassium Chloride Carbon Dioxide Anion Gap BUN Creatinine Est Cr Clr Drug Dosing eGFR BUN/Creatinine Ratio Glucose POC Glucose Calcium Phosphorus Magnesium Iron TIBC Transferrin Transferrin % Sat Ferritin Total Bilirubin AST ALT Alkaline Phosphatase Troponin I High Sens Total Protein Albumin Globulin Albumin/Globulin Ratio Vitamin B12 Folate POC Stool Occult Blood Negative Blood Type Blood Type Recheck B Positive Antibody Screen Crossmatch 06/08/25 06/08/25 06/09/25 20:11 21:18 03:53 WBC 9.01 RBC 4.19 L Hgb 7.9 L 8.6 L Hct 29.3 L 31.3 L MCV 74.7 L D MCH 20.5 L MCHC 27.5 L D RDW Std Deviation 62.4 H RDW Coeff of Ranjit 23.9 H Plt Count 378 MPV 10.1 Immature Gran % (Auto) 0.3 Neut % (Auto) 57.9 Lymph % (Auto) 27.7 [facility] % (Auto) 10.3 Eos % (Auto) 2.8 Baso % (Auto) 1.0 Neut # (Auto) 5.21 Lymph # (Auto) 2.50 [facility] # (Auto) 0.93 H Eos # (Auto) 0.25 Baso # (Auto) 0.09 Immature Gran # (Auto) 0.03 Absolute Nucleated RBC 0.11 Nucleated RBC % (auto) 1.2 Polychromasia 1+ Hypochromasia Present Anisocytosis Present Tear Drop Cells 1+ Peripher Smr Path Cons PT INR APTT PTT Ratio Sodium 142 Potassium 3.3 L Chloride 113 H Carbon Dioxide 24 Anion Gap 5 BUN 9 Creatinine 0.90 Est Cr Clr Drug Dosing 76.9 eGFR 72.73 BUN/Creatinine Ratio 10.0 Glucose 92 POC Glucose 132 H Calcium 8.0 L Phosphorus 3.0 Magnesium 2.0 Iron TIBC Transferrin Transferrin % Sat Ferritin Total Bilirubin 1.4 H D AST 11 L ALT 9 Alkaline Phosphatase 39 Troponin I High Sens Total Protein 5.7 L Albumin 3.6 Globulin 2.1 L Albumin/Globulin Ratio 1.7 Vitamin B12 Folate POC Stool Occult Blood Blood Type Blood Type Recheck Antibody Screen Crossmatch 06/09/25 06/09/25 06/09/25 05:52 11:37 16:15 WBC RBC Hgb Hct MCV MCH MCHC RDW Std Deviation RDW Coeff of Ranjit Plt Count MPV Immature Gran % (Auto) Neut % (Auto) Lymph % (Auto) [facility] % (Auto) Eos % (Auto) Baso % (Auto) Neut # (Auto) Lymph # (Auto) [facility] # (Auto) Eos # (Auto) Baso # (Auto) Immature Gran # (Auto) Absolute Nucleated RBC Nucleated RBC % (auto) Polychromasia Hypochromasia Anisocytosis Tear Drop Cells Peripher Smr Path Cons PT INR APTT PTT Ratio Sodium Potassium Chloride Carbon Dioxide Anion Gap BUN Creatinine Est Cr Clr Drug Dosing eGFR BUN/Creatinine Ratio Glucose POC Glucose 105 H 127 H 101 H Calcium Phosphorus Magnesium Iron TIBC Transferrin Transferrin % Sat Ferritin Total Bilirubin AST ALT Alkaline Phosphatase Troponin I High Sens Total Protein Albumin Globulin Albumin/Globulin Ratio Vitamin B12 Folate POC Stool Occult Blood Blood Type Blood Type Recheck Antibody Screen Crossmatch PG Care Time/CCT Total # of Minutes Spent Total Time Spent with Patient: Total time spent is greater than 50% in coordination of care (as documented) at patient's floor/unit and/or counseling patient: Coding Level of Care Code 81518 INT INP/OBS CARE MIN Diagnoses Anemia, unspecified type D64.[address] scan, colon R93.3
--- NOTE | 2025-06-09 11:36 | Hospitalist Progress Note ---
Date of Service June 09, 2025 Assessment & Plan (1) Acute blood loss anemia: (2) Colonic mass: (3) Pulmonary nodule less than 6 mm in diameter with high risk for malignant neoplasm: (4) Hypokalemia: (5) HIV (human immunodeficiency virus infection): (6) History of aortic dissection: (7) History of cancer of vagina: Plan Patient 59-year-old female presented with symptomatic anemia. Noticed to be severely anemic. Received 3 units of packed red blood cells. CT imaging concerning for colonic mass as a potential source of her anemia. Also concerning for possible metastatic pulmonary nodule Communication with GI team, planning on colonoscopy on 06/10/2025. Clear liquid diet today with anticipated prep for colonoscopy overnight. Monitor laboratory studies Replace potassium Continue outpatient HIV meds Ok to [facility] Admission and Anticipated Discharge Date Admission Date: June 08, 2025 Subjective Patient feeling significantly improved. No lightheadedness or dizziness. No chest pain or shortness of breath. Physical Exam Physical Exam: Constitutional: Alert, nontoxic HEENT: Mucous membranes moist. Lungs: Clear to auscultation, decreased, no wheezes rales or rhonchi CV: S1-S2, regular Abdomen: Soft, nontender, nondistended Extremities: No significant edema Neuro: No focal deficits Psych: Cooperative, normal mood Results & Data Results & Data Vital Signs (Past 12 Hours) Vital Signs Temp Pulse Pulse Resp BP BP Pulse Ox 06/09/25 09:00 81 06/09/25 09:00 06/09/25 07:44 36.9 C 82 18 115/63 98 06/09/25 02:31 36.6 C 79 16 120/65 96 06/09/25 01:50 36.6 C 78 16 123/66 97 06/09/25 00:50 36.6 C 78 16 124/66 96 06/09/25 00:50 36.6 C 78 16 124/66 97 06/09/25 00:20 36.6 C 82 16 126/63 97 06/09/25 00:16 84 06/09/25 00:13 90 06/09/25 00:05 36.5 C 85 16 115/60 97 06/08/25 23:44 36.6 C 97 H 18 122/61 100 O2 Del Method 06/09/25 09:00 07/10/25 09:00 Room Air 06/09/25 07:44 Room Air 06/09/25 02:31 06/09/25 01:50 06/09/25 00:50 06/09/25 00:50 06/09/25 00:20 06/09/25 00:16 06/09/25 00:13 06/09/25 00:05 06/08/25 23:44 Diagnostic Findings Reviewed imaging, laboratory and diagnostic studies. Pertinent findings as below. WBCs 9.0 Hemoglobin 8.6, significantly improved posttransfusion Potassium 3.3 Creatinine 0.9 (5) HIV (human immunodeficiency virus infection) HIV symptom status: unspecified Qualified Code(s): Z21 - Asymptomatic human immunodeficiency virus [HIV] infection status
[2025-06-09] MEDS: POTASSIUM CHLORIDE CRTAB 20 MEQ TABCR PO ONE (13:09)
--- NOTE | 2025-06-09 14:40 | Pharmacy Report ---
Pharmacy Glycemic Short Note 2 - Date of Service June 09, 2025 - Glycemic Short BSG Results (Last 24 hours): 06/08/25 06/09/25 06/09/25 20:11 03:53 05:52 Glucose 92 POC Glucose 132 H 105 H 06/09/25 11:37 Glucose POC Glucose 127 H entered in error
--- NOTE | 2025-06-09 14:43 | Pharmacy Report ---
Pharmacy Glycemic Short Note 2 - Date of Service June 09, 2025 - Glycemic Short BSG Results (Last 24 hours): 06/08/25 06/09/25 06/09/25 20:11 03:53 05:52 Glucose 92 POC Glucose 132 H 105 H 06/09/25 11:37 Glucose POC Glucose 127 H OUTPATIENT ANTIDIABETIC REGIMEN: * Lantus 28 units QS HS * NovoLog SS CF 20 if BSG >200mg/dL * Jardiance 10mg PO QAM * HbA1c 5.5% (05/31/25) ASSESSMENT: * Sandra is a 59 year old female admitted with anemia and a history of type 2 diabetes mellitus. Pharmacy has been consulted to assist with glycemic management while inpatient. * Fasting BSG this AM excellent, no basal administered yesterday evening due to NPO status and well controlled BSGs, will add a basal scale this evening with reduced basal insulin doses based on BSG * NovoLog at a weight based stress of 2, unable to assess as no insulin administered since admission at this point. PLAN FOR INPATIENT GLYCEMIC CONTROL: * Hold outpatient oral diabetes medications * Basal insulin * Lantus 0-20 units SQ HS (see eMAR for additional details) * Bolus insulin * NovoLog per scale ACHS or Q6hrs while NPO * Goal Range: Low 110 mg/dL - High 140 mg/dL * Correction Factor: 25 mg/dL/unit * Nutritional / Prandial insulin per carb ratio of 1 unit per 8 grams CHO consumed
[2025-06-09] MEDS: LAVAGE SOLUTION 4000ML PO SCH (17:52)
[2025-06-09] MEDS: LANTUS PER UNIT CHARGE SC SCH (21:10)
[2025-06-10 07:19] LABS: Hematocrit (blood only) 31.8 % (37.0-47.0); Hemoglobin 8.7 g/dl (12.0-16.0); Mean Corpuscular Hemoglobin 20.5 pg (25.0-34.0); Mean Corpuscular Volume 75.0 fL (80.0-100.0); Platelet Count 381 K/uL (130-400); RDW Standard Deviation 62.9 fL (36.4-46.3); Red Blood Count 4.24 M/uL (4.20-5.40); White Blood Count 7.21 K/ul (4.8-10.8)
[2025-06-10 07:35] LABS: Anion Gap 7.0 (3-11); Blood Urea Nitrogen 6.0 mg/dl (6-23); Calcium 8.3 mg/dl (8.6-10.3); Carbon Dioxide 23.0 mmol/L (21-32); Chloride 112.0 mmol/L (98-107); Creatinine Clr Calc Pharmacy 80.3 ml/min; Glucose 102.0 mg/dl (70-99(Fasting)); Magnesium 1.7 mg/dl (1.7-2.4); Potassium 3.5 mmol/L (3.5-5.1); Sodium 142.0 mmol/L (136-145)
--- NOTE | 2025-06-10 08:50 | Hospitalist Progress Note ---
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 Escalera at [facility], history of reocclusion of SMA s/p mechanical thrombectomy of SMA with placement of 4 stents on 06/15/[address] Escalera at [facility] on Xarelto, history of aortic dissection, hepatic steatosis, GERD, lumbar DDD, osteoarthritis, age-related osteoporosis, migraines, HIV on Biktarvy, depression/VICKIE and other problems listed below who presented to the ED for evaluation via recommendation of her primary ID physician after routine outpatient lab work revealed a critical Hgb value of 5.6 on 06/07/25. Being managed for anemia S/p [address] Abd/Pelvis concerning for colonic mass. Also concerning for possible metastatic pulmonary nodule Patient planned for colonoscopy today. 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 Plan to resume after procedure/on discharge Code status- Full I spent a total of 50 minutes coordinating, documenting and providing care for this patient excluding time spent in performance of separately billed services Admission and Anticipated Discharge Date Admission Date: June 08, 2025 Subjective Patient seen and examined Denied nausea,vomiting or any other complaints Physical Exam Constitutional: + well hydrated and + obese; no acute di stress Eyes: PERRL, conjunctivae normal, anicteric sclerae ENMT: external ear and nose normal, oropharynx normal Respiratory: normal respiratory effort, lungs clear to auscultation Cardiovascular: Rate/Rhythm: regular rate and regular rhythm Gastrointestinal (Abdomen): normal bowel sounds, soft, nontender, no hepatosplenomegaly Musculoskeletal: No pedal edema Neurologic: PERRL, EOMI, accommodation nl, no face palsy, no dysarthria Psychiatric: A+Ox3, euthymic affect Results & Data Results & Data Vital Signs (Past 12 Hours) Vital Signs Temp Pulse Pulse Resp BP Pulse Ox O2 Del Method 06/10/25 07:16 36.9 C 83 18 132/72 97 Room Air 06/10/25 03:15 36.6 C 76 16 131/77 95 Room Air 06/09/25 23:52 91 H 06/09/25 23:15 36.8 C 86 16 127/73 96 Room Air Laboratory Results Abnormal lab results 06/09/25 06/09/25 06/09/25 Range/Units 11:37 16:15 23:51 Hgb (12.0-16.0) g/dl Hct (37.0-47.0) % MCV (80.0-100.0) fL MCH (25.0-34.0) pg MCHC (32.0-36.0) g/dL RDW Std Deviation (36.4-46.3) fL RDW Coeff of Ranjit (11.5-14.5) % Chloride (98-107) mmol/L BUN/Creatinine Ratio (10-20) Glucose (70-99(Fasting)) mg/dl POC Glucose 127 H 101 H 114 H (70-99) mg/dl Calcium (8.6-10.3) mg/dl 06/10/25 06/10/25 Range/Units 05:32 06:51 Hgb 8.7 L (12.0-16.0) g/dl Hct 31.8 L (37.0-47.0) % MCV 75.0 L (80.0-100.0) fL MCH 20.5 L (25.0-34.0) pg MCHC 27.4 L (32.0-36.0) g/dL RDW Std Deviation 62.9 H (36.4-46.3) fL RDW Coeff of Ranjit 24.4 H (11.5-14.5) % Chloride 112 H (98-107) mmol/L BUN/Creatinine Ratio 7.1 L (10-20) Glucose 102 H (70-99(Fasting)) mg/dl POC Glucose 121 H (70-99) mg/dl Calcium 8.3 L (8.6-10.3) mg/dl (5) HIV (human immunodeficiency virus infection) HIV symptom status: unspecified Qualified Code(s): Z21 - Asymptomatic human immunodeficiency virus [HIV] infection status
--- NOTE | 2025-06-10 09:25 | Anesthesiology Consultation ---
Date of Service June 10, 2025 History Surgery Operation Date: 06/10/25 16:30 Proposed Procedures p Colonoscopy Dr. Osborn - Preston Osborn MD Acute anemia with colon mass. Transfused from b 5.6--> 8.7 with 3 units PRBC. Height/Weight Height: 5 ft 4 in Weight: 100.9 kg Allergies Allergy/AdvReac Type Severity Reaction Status Date / Time levofloxacin AdvReac Intermediate Nausea/Vomiting Verified 06/08/25 13:47 "extreme" Medications Home Medications Medication Instructions Recorded Confirmed Last Taken bupropion HCl 200 mg tablet,12 hr 200 mg PO QAM 09/23/19 06/08/25 06/08/25 sustained-release (Wellbutrin SR) gabapentin 300 mg capsule 300 mg PO QAM 09/23/19 06/08/25 06/08/25 albuterol sulfate 90 mcg/actuation 2 puffs inhalation Q6H PRN 04/18/20 06/08/25 Unknown aerosol inhaler (Ventolin HFA) Shortness Of Breath Or Wheezing mirtazapine 15 mg tablet 15 mg PO HS 06/12/20 06/08/25 06/07/25 alendronate 70 mg tablet 70 mg PO WK 06/08/25 06/08/25 Unknown bictegravir 50 mg-emtricitabine 1 tab PO QAM 06/08/25 06/08/25 06/08/25 200 mg-tenofovir alafenam 25 mg tablet (Biktarvy) clopidogrel 75 mg tablet 75 mg PO QPM 06/08/25 06/08/25 06/07/25 empagliflozin 10 mg tablet 10 mg PO QAM 06/08/25 06/08/25 06/08/25 (Jardiance) escitalopram oxalate 20 mg tablet 20 mg PO QAM 06/08/25 06/08/25 06/08/25 fluticasone propionate 220 2 puff inhalation BID 06/08/25 06/08/25 06/08/25 mcg/actuation HFA aerosol inhaler gabapentin 600 mg tablet 600 - 1,200 mg PO TID 06/08/25 06/08/25 06/08/25 insulin aspart U-100 100 unit/mL 1 sliding scale dose subcut TID 06/08/25 06/08/25 06/08/25 (3 mL) subcutaneous pen (Novolog FlexPen U-100 Insulin aspart) insulin glargine 100 unit/mL (3 28 unit subcut HS 06/08/25 06/08/25 06/08/25 mL) subcutaneous pen (Lantus Solostar U-100 Insulin) levocetirizine 5 mg tablet 2.5 mg PO QPM 06/08/25 06/08/25 06/07/25 montelukast 10 mg tablet 10 mg PO HS 06/08/25 06/08/25 06/07/25 pantoprazole 20 mg tablet,delayed 20 mg PO QAM 06/08/25 06/08/25 06/08/25 release prazosin 1 mg capsule 1 mg PO HS 06/08/25 06/08/25 06/07/25 rivaroxaban 20 mg tablet (Xarelto) 20 mg PO HS 06/08/25 06/08/25 06/07/25 rosuvastatin 10 mg tablet 10 mg PO HS 06/08/25 06/08/25 06/07/25 Active Medications Generic Name Dose Route Start Last Admin Trade Name Moses PRN Reason Stop Dose Admin Bictegravir/Emtricitabine/Tenofovir 1 each 06/09/25 09:00 06/10/25 08:18 Biktarvy PO 07/09/25 08:59 1 each DAILY GOLD Administration Bupropion HCl 200 mg 06/09/25 09:00 06/10/25 08:21 Bupropion Sr 100 Mg Tabcr PO 07/09/25 08:59 200 mg QAM GOLD Administration Cetirizine HCl 5 mg 06/08/25 21:00 06/09/25 19:45 Cetirizine Hcl 10 Mg Tablet PO 07/08/25 20:59 5 mg QPM GOLD Administration Escitalopram Oxalate 20 mg 06/09/25 09:00 06/10/25 08:21 Escitalopram Oxalate 20 Mg Tab PO 07/09/25 08:59 20 mg QAM GOLD Administration Fluticasone Furoate 1 puffs 06/09/25 09:00 06/10/25 08:22 Fluticasone Furoate 200mcg 14 Puffs/Inhaler INH 07/09/25 08:59 1 puffs DAILY GOLD Administration Gabapentin 300 mg 06/09/25 09:00 06/10/25 08:20 Gabapentin 300 Mg Cap PO 07/09/25 08:59 300 mg QAM GOLD Administration Gabapentin 1,200 mg 06/08/25 21:00 06/09/25 19:47 Gabapentin 600 Mg Tab PO 07/08/25 20:59 1,200 mg HS GOLD Administration Gabapentin 600 mg 06/09/25 09:00 06/10/25 08:21 Gabapentin 600 Mg Tab PO 07/09/25 08:59 600 mg BID@0900,1400 GOLD Administration Insulin Aspart 0 units 06/09/25 06:00 06/10/25 05:37 Insulin Aspart Per Unit Charge SC 07/09/25 05:59 Not Given Q6 GOLD Insulin Glargine 0 units 06/09/25 21:00 06/09/25 21:10 Lantus Per Unit Charge SC 07/09/25 20:59 Not Given HS GOLD Protocol Mirtazapine 15 mg 06/08/25 21:00 06/09/25 19:48 Mirtazapine Tab 15 Mg Tab PO 07/08/25 20:59 15 mg HS GOLD Administration Montelukast Sodium 10 mg 06/08/25 21:00 06/09/25 19:48 Montelukast Sodium 10 Mg Tablet PO 07/08/25 20:59 10 mg HS GOLD Administration Pantoprazole Sodium 40 mg 06/10/25 09:00 06/10/25 08:19 Pantoprazole 40 Mg Tab PO 07/10/25 08:59 40 mg QAM GOLD Administration Prazosin HCl 1 mg 06/08/25 21:00 06/09/25 19:47 Prazosin Hcl 1 Mg Cap PO 07/08/25 20:59 1 mg HS GOLD Administration Rosuvastatin Calcium 10 mg 06/08/25 21:00 06/09/25 19:48 Rosuvastatin Calcium 10 Mg Tab PO 07/08/25 20:59 10 mg HS GOLD Administration Past Medical History Medical History (Updated 06/09/25 @ 11:34 by Benton Munoz DO) Degenerative disc disease Osteoarthritis Chronic kidney disease STAGE 3 "COUNTS ARE IMPROVING" GERD (gastroesophageal reflux disease) History of cancer of vagina S/P surgical intervention and chemotherapy Anxiety and depression Asthma LAST USED RESCUE INHALER 2 MONTHS AGO H/O aortic dissection medically treated, HIV+, DM2+insulin, 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 Past Family History Family History Mother Family history of diabetes mellitus Father Family history of diabetes mellitus Grandfather (Maternal) Family history of diabetes mellitus Grandmother (Maternal) Family history of diabetes mellitus Past Surgical History Surgical History History of hysterectomy History of total knee replacement RT History of colonoscopy History of tooth extraction History of tonsillectomy and adenoidectomy History of myringotomy Social History Smoking Status: Current every day smoker tobacco type: cigarettes Smoking cigarettes per day: 1 pack a week Do You Dip or Chew Tobacco: No Hx Alcohol Use: No Hx Substance Use: No substance use type: does not use Physical Exam Vital Signs Last Vital Signs Temp 36.9 C 06/10/25 07:16 Pulse 83 06/10/25 07:16 Resp 18 06/10/25 07:16 BP 132/72 06/10/25 07:16 Pulse Ox 97 06/10/25 07:16 O2 Del Method Room Air 06/10/25 07:16 Testing Laboratory Results 06/10/25 06:51 06/10/25 06:51 PT 10.9 Seconds (9.0-12.0) 06/08/25 11:00 INR 1.0 (0.9-1.1) 06/08/25 11:00 APTT 23 Seconds (21-31) 06/08/25 11:00 Blood Type B Positive 06/08/25 11:11 Antibody Screen NEGATIVE 06/08/25 11:11 06/10/25 06/09/25 05:32 23:51 POC Glucose 121 H 114 H Echocardiogram EF: 2015 - 60% LV Function: normal Valvular Disease: + no significant valvular disease
--- NOTE | 2025-06-10 09:34 | History & Physical Bridge Note ---
Date of Service June 10, 2025 History & Physical Bridge Note I have examined the patient, reviewed the History & Physical and in the interval since the performance of the History & Physical I have noted the following changes of clinical significance: no changes noted Patient has completed her bowel prep. She is passing liquid bowel movements. No bleeding during prep. Keep NPO & proceed with colonoscopy today. Supervising Physician Co-Signing Physician Notes I saw and examined this patient with our nurse practitioner and agree with her assessment and plan. Tolerated bowel prep last night no bleeding. Will proceed with colonoscopy today.
--- NOTE | 2025-06-10 10:01 | Pharmacy Report ---
Pharmacy Glycemic Short Note 2 - Date of Service June 10, 2025 - Glycemic Short BSG Results (Last 24 hours): 06/09/25 06/09/25 06/09/25 11:37 16:15 20:31 Glucose POC Glucose 127 H 101 H 90 06/09/25 06/10/25 06/10/25 23:51 05:32 06:51 Glucose 102 H POC Glucose 114 H 121 H OUTPATIENT ANTIDIABETIC REGIMEN: * Lantus 28 units QS HS * NovoLog SS CF 20 if BSG >200mg/dL * Jardiance 10mg PO QAM * HbA1c 5.5% (05/31/25) ASSESSMENT: 06/10 * Sandra received no insulin yesterday * Fasting BSG this AM within goal range, unable to assess efficacy of insulin regimen, will continue for now. Plan for colonsocpy today. 06/09 * Sandra is a 59 year old female admitted with anemia and a history of type 2 diabetes mellitus. Pharmacy has been consulted to assist with glycemic management while inpatient. * Fasting BSG this AM excellent, no basal administered yesterday evening due to NPO status and well controlled BSGs, will add a basal scale this evening with reduced basal insulin doses based on BSG * NovoLog at a weight based stress of 2, unable to assess as no insulin administered since admission at this point. PLAN FOR INPATIENT GLYCEMIC CONTROL: * Hold outpatient oral diabetes medications * Basal insulin * Lantus 0-20 units SQ HS (see eMAR for additional details) * Bolus insulin * NovoLog per scale ACHS or Q6hrs while NPO * Goal Range: Low 110 mg/dL - High 140 mg/dL * Correction Factor: 25 mg/dL/unit * Nutritional / Prandial insulin per carb ratio of 1 unit per 8 grams CHO consumed
--- NOTE | 2025-06-10 13:07 | Anesthesiology Progress Note ---
Date of Service June 10, 2025 Anesthesia Post Procedure Vital Signs Vital Signs: Temp Pulse Pulse Resp BP Pulse Ox O2 Del Method 06/10/25 12:43 76 18 149/79 H 95 Room Air 06/10/25 12:33 77 18 133/75 99 Room Air 06/10/25 12:18 85 22 134/66 99 Room Air 06/10/25 10:01 37.1 C 84 18 145/73 H 98 Room Air 06/10/25 07:16 36.9 C 83 18 132/72 97 Room Air 06/10/25 05:42 74 06/10/25 03:15 36.6 C 76 16 131/77 95 Room Air 06/09/25 23:52 91 H 06/09/25 23:15 36.8 C 86 16 127/73 96 Room Air 06/09/25 19:53 Room Air 06/09/25 19:16 36.8 C 83 18 135/67 97 Room Air 06/09/25 15:14 37.2 C 83 18 111/67 98 Room Air 06/09/25 14:00 89 Transfer of Care Handoff Completed per policy Notes Mental Status: alert / awake / arousable and participated in evaluation Nausea / Vomiting: adequately controlled Pain: adequately controlled Airway Patency, RR, SpO2: stable & adequate BP & HR: stable & adequate Hydration State: stable & adequate Anesthetic Complications: no major complications apparent and Pt Satisfied with anesthetic care
--- NOTE | 2025-06-10 13:24 | GI REPORT ---
[facility] Patient: LITTLE WRIGHT : 1965 Sex at : Female Age: 59 Years Procedure: Colonoscopy Date: 06/10/2025 Attending Physician: Preston Osborn MD Referring MD: Lina To MD Indications: - Colon mass seen on CT scan Medications: - Monitored Anesthesia Care Complications: - No immediate complications. Procedure: - Prior to the procedure, a History and Physical was performed, and patient medications and allergies were reviewed. The patient's tolerance of previous anesthesia was also reviewed. The risks and benefits of the procedure and the sedation options and risks were discussed with the patient. All questions were answered, and informed consent was obtained. [Anticoagulant Agents] [Days Prior to Procedure]. [ASA Grade]. After reviewing the risks and benefits, the patient was deemed in satisfactory condition to undergo the procedure. - The adult colonoscope was introduced through the anus and advanced to the terminal ileum, with identification of the appendiceal orifice and ileocecal valve. - The colonoscopy was performed without difficulty. - The patient tolerated the procedure well. - The quality of the bowel preparation was [Prep Quality]. - [Anatomical Structures] photographed. Findings: - The perianal and digital rectal examinations were normal. - A greater than 50 mm polyp was found in the ascending colon. The polyp was sessile. Epinephrine 1:1000 injected into base of polyp. The polyp was removed with a hot snare. Resection and retrieval were complete. To prevent bleeding after the polypectomy, three hemostatic clips were successfully placed. SPOT Tattoo placed proximal and distal to post-polypectomy site. - A medium (7-9 mm) polyp was found in the descending colon. The polyp was sessile. The polyp was removed with a cold snare. Resection and retrieval were complete. - The terminal ileum appeared normal. - No other significant abnormalities were identified in a careful examination of the remainder of the colon. Impression: - One greater than 50 mm polyp in the ascending colon, removed with a hot snare. Resected and retrieved. Clips were placed. Epinephrine injected and Tattoo placed. - One medium (7-9 mm) polyp in the descending colon, removed with a cold snare. Resected and retrieved. - The examined portion of the ileum was normal. Recommendation: - Await pathology results. - Resume previous diet. - Repeat colonoscopy in 6 months for surveillance of polyps greater than 1 cm in size. - Patient has a contact number available for emergencies. The signs and symptoms of potential delayed complications were discussed with the patient. Return to normal activities tomorrow. Written discharge instructions were provided to the patient. Procedure Code(s): - 54522, Colonoscopy, flexible; with removal of tumor(s), polyp(s), or other lesion(s) by snare technique Diagnosis Code(s): - D12.2, Benign neoplasm of ascending colon - D12.4, Benign neoplasm of descending colon CPT(R) - 202 copyright [employer]. All Rights Reserved. The CPT codes, CCI edits and ICD codes generated are intended as suggestions and were generated based on input data. These codes are preliminary and upon certified coder review may be revised to meet current compliance and payer requirements. The provider is responsible for the final determination of appropriate codes, and modifiers. Preston Osborn MD This document has been electronically signed. Note Initiated:06/10/2025 Note Completed:06/10/2025 1:23 PM [id number]
[2025-06-10] MEDS: OPTIRAY 320 100ml IV ONE (13:33)
--- NOTE | 2025-06-10 16:30 | CT Scan Report ---
Clinical history: Possible cancer workup Technique: Axial computed tomography images were obtained of the chest after the administration of intravenous contrast No prior examination is available for comparison Findings: There is a band of opacity in the medial right upper lobe, likely due to atelectasis or scar. There is mild left upper lobe and lingular atelectasis. There is a 5 mm nodular opacity within the left upper lobe. There is a 4 mm somewhat faint nodular opacity in the right upper lobe. There is also a 6 mm right upper lobe nodular opacity. There is a 7 mm nodular opacity in the lateral left lung base that could be due to focal atelectasis or scar but is indeterminate in nature. There is a 3 mm left lower lobe nodule also. There is no pleural effusion or pneumothorax. There is no sign of pulmonary fibrosis or other diffuse interstitial process. No endobronchial lesion is seen There is no mediastinal, hilar, or axillary adenopathy. The thoracic aorta appears unremarkable with no sign of aneurysm or dissection. There is no pericardial effusion. There is a 2 cm nodule in the left thyroid lobe The spleen is mildly enlarged measuring 13.7 cm. There are T3 and T12 compression fractures. No focal osseous lesion is evident Impression: 1. Bilateral lung atelectasis 2. Several pulmonary nodules, indeterminate in nature. A follow-up chest CT could be obtained in 6 months 3. Indeterminate thyroid nodule. A thyroid ultrasound is recommended for further evaluation 4. Mild splenomegaly 5. T3 and T12 compression fractures of indeterminate age ACT 112: Positive. There are findings on this exam that require communication between the performing entity and the patient following Patient Test Result Information Act ([place] ACT 112) guidelines. Electronically signed by Willie Goramn 06-10-2025 4:30 PM
[2025-06-10] MEDS: ENDOSCOPIC MARKER 5 ML SYR TOP ONE (17:57)
[2025-06-10] MEDS: EPINEPHrine INJ 1 MG/ML AMP ONE (17:57)
[2025-06-10] MEDS: LIDOCAINE 2% 2 ML VIAL/AMP(20MG/ML) INFIL ONE (17:57)
[2025-06-10] MEDS: PROPOFOL IV EMULSION 10 MG/ML 20 ML VIAL IV ONE ×2 (17:57→17:58)
[2025-06-10 19:32] VITALS: RESP 18
[2025-06-10] MEDS: INSULIN ASPART PER UNIT CHARGE SC SCH (21:00)
[2025-06-11 06:43] LABS: Hematocrit (blood only) 32.7 % (37.0-47.0); Hemoglobin 8.8 g/dl (12.0-16.0); Mean Corpuscular Hemoglobin 20.6 pg (25.0-34.0); Mean Corpuscular Volume 76.4 fL (80.0-100.0); Platelet Count 398 K/uL (130-400); RDW Standard Deviation 67.3 fL (36.4-46.3); Red Blood Count 4.28 M/uL (4.20-5.40); White Blood Count 10.94 K/ul (4.8-10.8)
[2025-06-11 06:56] LABS: Anion Gap 6.0 (3-11); Blood Urea Nitrogen 7.0 mg/dl (6-23); Calcium 8.4 mg/dl (8.6-10.3); Carbon Dioxide 25.0 mmol/L (21-32); Chloride 111.0 mmol/L (98-107); Creatinine Clr Calc Pharmacy 74.6 ml/min; Glucose 122.0 mg/dl (70-99(Fasting)); Potassium 3.3 mmol/L (3.5-5.1); Sodium 142.0 mmol/L (136-145)
[2025-06-11 07:44] VITALS: BP 133/78; PULSE 97; TEMP 98.2; O2SAT 93
[2025-06-11] MEDS: POTASSIUM CHLORIDE CRTAB 20 MEQ TABCR PO SCH (08:45)
--- NOTE | 2025-06-11 09:19 | Gastroenterology Progress Note ---
Date of Service June 11, 2025 Assessment & Plan (1) Colonic mass: Plan: No problems post polypectomy Admission and Anticipated Discharge Date Admission Date: June 08, 2025 Subjective asked to check on patient after removal of large polyp. She is feeling well. She denies bleeding. H/H are stable Physical Exam Physical Exam: She looks well Results & Data Vital Signs (Past 12 Hours) Vital Signs Temp Pulse Resp BP Pulse Ox O2 Del Method 06/11/25 07:40 36.8 C 97 H 18 133/78 93 Room Air
--- NOTE | 2025-06-11 11:35 | Discharge Summary ---
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 Escalera at [facility], history of reocclusion of SMA s/p mechanical thrombectomy of SMA with placement of 4 stents on 06/15/[address] Escalera at [facility] on Xarelto, history of aortic dissection, hepatic steatosis, GERD, lumbar DDD, osteoarthritis, age-related osteoporosis, migraines, HIV on Biktarvy, depression/VICKIE and other problems listed below who presented to the ED for evaluation via recommendation of her primary ID physician after routine outpatient lab work revealed a critical Hgb value of 5.6 on 06/07/25. History obtained from the patient, discussion with ED provider and associated chart review. Patient endorses some fatigue and "overall tiredness" over the past month and a half. Also endorses unintentional weight loss in the setting of poor appetite over the past several weeks. Family also notes that she appears more pale in regard to her skin coloration. Denies any melena or hematochezia. No prior history of anemia per patient. No recently recorded fevers. Denies any SOB, sinus congestion, chest pain, abdominal pain, dysuria or increased urinary frequency. On Biktarvy given history of HIV. Follows with Javier ELKINS. On chronic anticoagulation therapy with Xarelto given history of SMA occlusion and RRA thrombus. Last dose of Xarelto given yesterday evening. Chronic tobacco use - smokes 1 pack of cigarettes/week. Rare alcohol use. No recreational drug use. Initial laboratory workup in ED notable for Hgb 5.7; 2U PRBCs ordered by ED provider. FOBT negative. Admission Exam Per Admitting Provider General: Obese F, vitals as above, NAD, sitting up in bed, very pleasant, conversing appropriately, A+Ox3, family at bedside HEENT: Normocephalic, atraumatic, conjunctivae normal, oropharynx somewhat dry Respiratory: Normal respiratory effort, lungs clear to auscultation bilaterally Cardiovascular: Regular rate, rhythm, normal peripheral pulses, no BLE edema Abdomen/GI: Normal bowel sounds, soft, nontender to palpation in all quadrants Extremities/MSK: No cyanosis or clubbing, extremities motor strength intact, moves all extremitie Neurologic: No overt focal deficits, CN's II-XI not formally tested but appear grossly intact bilaterally. Skin: No rashes, pale coloration, warm/dry Principal Diagnosis Acute blood loss anemia Colonic mass Pulmonary nodule less than 6 mm in diameter with high risk for malignant neoplasm Discharge Exam Constitutional: Alert, nontoxic HEENT: Mucous membranes moist. Lungs: Clear to auscultation, decreased, no wheezes rales or rhonchi CV: S1-S2, regular Abdomen: Soft, nontender, nondistended Extremities: No significant edema Neuro: No focal deficits Psych: Cooperative, normal mood Discharge Data Allergies Allergy/AdvReac Type Severity Reaction Status Date / Time levofloxacin AdvReac Intermediate Nausea/Vomiting Verified 06/08/25 13:47 "extreme" Consultations 06/08/25 13:36 ED Decision to Admit Stat 06/08/25 14:22 Consult Gastroenterology Routine Procedures Performed Operation Date: 06/10/25 16:30 Actual Procedures p Colonoscopy Polypectomy - Preston Osborn MD Ordered Studies 06/08/25 11:20 CT angio abdomen pelvis w con Stat 06/10/25 10:05 CT chest diagnostic w con Routine Hospital Course (1) Acute blood loss anemia: (2) Colonic mass: (3) Pulmonary nodule less than 6 mm in diameter with high risk for malignant neoplasm: (4) Hypokalemia: (5) HIV (human immunodeficiency virus infection): (6) History of aortic dissection: (7) History of cancer of vagina: Plan Per prior attending w/ addendum: 59-year-old female with past medical history significant for insulin-requiring DM type II, diabetic polyneuropathy, HLD, hyperparathyroidism, history of thyroid nodule, mild persistent asthma, NATHALY on CPAP HS, 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 Escalera at [facility], history of reocclusion of SMA s/p mechanical thrombectomy of SMA with placement of 4 stents on 06/15/[address] Escalera at [facility] on Xarelto, history of aortic dissection, hepatic steatosis, GERD, lumbar DDD, osteoarthritis, age-related osteoporosis, migraines, HIV on Biktarvy, depression/VICKIE and other problems listed below who presented to the ED for evaluation via recommendation of her primary ID physician after routine outpatient lab work revealed a critical Hgb value of 5.6 on 06/07/25. Being managed for anemia S/p [address] Abd/Pelvis concerning for colonic mass. Also concerning for possible metastatic pulmonary nodule Patient planned for colonoscopy today. Follow up findings Will get CT chest with contrast as part of possible malignancy workup and for better assessment of pulmonary nodule Hb stable in 8s She will need follow up with her PCP Needs follow up Oncology Counseled patient regarding smoking cessation Continue outpatient HIV meds Continue other ARABIC LINGUIST medications DVT ppx- ARABIC LINGUIST xarelto on hold. Plan to resume after procedure/on discharge Code status- Full Addendum 06/11/2025: patient was seen and examined at bedside as a follow-up of GI blood loss anemia. Hemoglobin is stable today. Patient is status post colonoscopy and polypectomy, pathology results pending. Patient reports no weakness or lightheadedness or chest pain or palpitation or shortness of breath. Patient reports ambulating around okay. Patient feels strong enough to go home and is hemodynamically stable. Patient is being discharged to home with following instructions at the point of discharge: Follow-up with your primary care physician within a week time and likely you will need labs CBC/CMP/magnesium/phosphorus. You were managed for blood loss anemia likely secondary to GI blood loss. Your Xarelto and Plavix have been held while inpatient, you underwent colonoscopy and polypectomy. Continue with your Plavix from [email or web address] and Xarelto from tomorrow evening as discussed at bedside. Continue to monitor your stool for any blood in the stool or black stool, and if you have any signs and symptoms of anemia [dizziness, lightheadedness, chest pain, palpitation, shortness of breath, easy fatigability]. Return to emergency room or communicate with your PCP office immediately in case such symptoms happens as discussed at the bedside. Recommend that you quit smoking. Recommend you follow-up on final results of your pathology results on polyp during your PCP visit within a week time. Follow-up with GI as an outpatient, you will likely need repeat colonoscopy in 6 months. You were noted to have several pulmonary nodules, you will need repeat CT scan of the chest in 3 - 6 months time. Coordinate with your PCP office to set up the test. You were noted to have a thyroid nodule in CT scan of your chest [2 cm nodule in the left thyroid lobe ], recommend that you get ultrasound of the thyroid as an outpatient, coordinate with [facility] PCP office to set up the test. Take your medications as prescribed. Please make sure that you are able to get your medications today by calling your pharmacy before you leave the hospital so that your treatment continuity is not broken. Home Health Attestation I certify that this patient is under my care and that I, or a physicians gift shop assistant working with me, had a face to-face encounter that meets the home health [id number] encounter requirements with this patient. The encounter with the patient was in whole, or in part, for the following medical condition, which is the primary reason for home health care (list medical condition): I certify that, based on my findings, the following services are medically necessary home health services: My clinical findings support the need for the above services because: Further, I certify that my clinical findings support that this patient is homebound (i.e. absences from home require considerable and taxing effort and are for medical reasons or adventist services or infrequently or of short duration when for other reasons) because: Certification for Home Health Services: Based on the above findings, I certify that this patient is confined to the home and needs intermittent group home care, physical therapy and/or speech therapy or continues to need occupational therapy. The patient is under my care, and I have initiated the establishment of the plan of care. This patient will be followed by a physician who will periodically review the plan of care. Total Time Total Time Spent Total Time Spent (In Minutes): 45 Discharge Plan Discharge Items Patient Disposition: Home - Self-Care Reason For Visit: ANEMIA, C/F COLONIC MASS Discharge Diagnosis: Acute blood loss anemia Colonic mass Pulmonary nodule less than 6 mm in diameter with high risk for malignant neoplasm Hypokalemia Condition on Discharge: Fair Activity: Resume your previous activity Non-emergency contact: Primary Care Provider Call non-emergency contact if: you have any medication questions and your symptoms worsen Follow-up/Referrals: Esther Olvera PA-C [Primary Care Provider] - (Date & Time 06/16/2025 9:20 AM Provider: Esther Olvera PA-C [facility] [place]) Diet: Carb Consistent or DM2 Addtl Attending Provider Instructions: Follow-up with your primary care physician within a week time and likely you will need labs CBC/CMP/magnesium/phosphorus. You were managed for blood loss anemia likely secondary to GI blood loss. Your Xarelto and Plavix have been held while inpatient, you underwent colonoscopy and polypectomy. Continue with your Plavix from [facility] and Xarelto from tomorrow evening as discussed at bedside. Continue to monitor your stool for any blood in the stool or black stool, and if you have any signs and symptoms of anemia [dizziness, lightheadedness, chest pain, palpitation, shortness of breath, easy fatigability]. Return to emergency room or communicate with your PCP office immediately in case such symptoms happens as discussed at the bedside. Recommend that you quit smoking. Recommend you follow-up on final results of your pathology results on polyp during your PCP visit within a week time. Follow-up with GI as an outpatient, you will likely need repeat colonoscopy in 6 months. You were noted to have several pulmonary nodules, you will need repeat CT scan of the chest in 3 - 6 months time. Coordinate with your PCP office to set up the test. You were noted to have a thyroid nodule in CT scan of your chest [2 cm nodule in the left thyroid lobe ], recommend that you get ultrasound of the thyroid as an outpatient, coordinate with [facility] PCP office to set up the test. Take your medications as prescribed. Please make sure that you are able to get your medications today by calling your pharmacy before you leave the hospital so that your treatment continuity is not broken. Pending Studies at Discharge: Yes Stand-Alone Forms: My [employer], Smoking Cessation Medications and DC Order Prescriptions: Continued gabapentin 300 mg capsule 300 mg PO QAM Patient Comments: Take w/ 600mg capsule to equal 900mg every morning bupropion HCl [Wellbutrin SR] 200 mg tablet sustained-release 12 hr 200 mg PO QAM Patient Comments: Originally written for Bupropion 200mg: Take 200mg by mouth twice daily - 06/08/25 albuterol sulfate [Ventolin HFA] 90 mcg/actuation HFA aerosol inhaler 2 puffs INH Q6H PRN (Reason: Shortness Of Breath Or Wheezing) mirtazapine 15 mg tablet 15 mg PO HS gabapentin 600 mg tablet 600 - 1,200 mg PO TID Patient Comments: Take 600mg in the morning with 300mg to equal 900mg. Then take 600mg in the afternoon, then take 1200mg at bedtime - 06/08/25 Rx Instructions: Take 600mg in the morning with 300mg to equal 900mg. Then take 600mg in the afternoon, then take 1200mg at bedtime - 06/08/25 prazosin 1 mg capsule 1 mg PO HS Patient Comments: Originally written for Prazosin 1mmg by mouth at bedtime - 06/08/25 clopidogrel 75 mg tablet 75 mg PO QPM pantoprazole 20 mg tablet,delayed release (DR/EC) 20 mg PO QAM montelukast 10 mg tablet 10 mg PO HS fluticasone propionate 220 mcg/actuation HFA aerosol inhaler 2 puff INHALATION BID escitalopram oxalate 20 mg tablet 20 mg PO QAM insulin aspart U-100 [Novolog FlexPen U-100 Insulin] 100 unit/mL (3 mL) insulin pen 1 sliding scale dose SUBCUT TID Patient Comments: Add 1 unit for every 20 over 200BSG reading rosuvastatin 10 mg tablet 10 mg PO HS insulin glargine [Lantus Solostar U-100 Insulin] 100 unit/mL (3 mL) insulin pen 28 unit SUBCUT HS levocetirizine 5 mg tablet 2.5 mg PO QPM Patient Comments: Originally written for Prazosin 1mmg by mouth at bedtime - 06/08/25 Jardiance 10 mg tablet 10 mg PO QAM Biktarvy 50-200-25 mg tablet 1 tab PO QAM alendronate 70 mg tablet 70 mg PO WK Held Xarelto 20 mg tablet 20 mg PO HS Hold Instructions: Resume on 06/12/25. Discharge Orders: Discharge Order (Routine); Ordered 06/11/25 Ordered By: Lina Willard Admission Data Admit Date/Time: 06/08/25 15:11 Attending Provider: Lina Willard Admit Provider: Meir Robles Primary Care Provider: Esther Olvera Other Providers: Meir Robles; Preston Osborn I; Benton Munoz Other Interventions: Discharge Summary Assessment (RN) Last Done: 06/10/25 12:18
[2025-06-11] MEDS ORDERED: LANTUS PER UNIT CHARGE SC SCH (21:00)
--- NOTE | 2025-06-15 08:38 | Coding Query ---
PATHOLOGY To promote full compliance with coding requirements relating to patient care, physician participation is requested in all cases of cheese cook uncertainty. Please assist us with the question(s) below: Please review the Pathology report and please document any relevant diagnosis(es) below: Diagnosis(es): tubulovillous adenoma colon Thank you Paola FALCON
== END 2025-06-11 13:30 | disposition home or self-care (01) | DRG 330 ==
LOC: ED 10:20 → SUATTDRO 15:11 → 2S 15:11 → 3N 06-10 17:52

== ENCOUNTER 2025-07-12 02:43 | Inpatient (IN) ==
[2025-07-12] MEDS: ACETAMINOPHEN 1,000 MG/100 ML VIAL IV STA (03:02)
[2025-07-12] MEDS: dexAMETHasone**PF** 10 MG/ML VIAL IV ONE (03:02)
[2025-07-12 03:14] LABS: Hematocrit (blood only) 40.6 % (37.0-47.0); Hemoglobin 11.0 g/dl (12.0-16.0); Mean Corpuscular Hemoglobin 20.4 pg (25.0-34.0); Mean Corpuscular Volume 75.3 fL (80.0-100.0); Platelet Count 566 K/uL (130-400); RDW Standard Deviation 54.4 fL (36.4-46.3); Red Blood Count 5.39 M/uL (4.20-5.40); White Blood Count 29.96 K/ul (4.8-10.8)
[2025-07-12 03:34] LABS: Anisocytosis Present; Immature Granulocytes # (auto) 0.20 K/uL (0.01-0.20); Immature Granulocytes % (auto) 0.7 %; Ovalocytes 1+; Polychromasia 2+; Tear Drop Cells 1+; Toxic Vacuolation 1+
[2025-07-12 03:51] LABS: Potassium 3.7 mmol/L (3.5-5.1)
--- NOTE | 2025-07-12 03:52 | CT Scan Report ---
EXAM: CT head/brain wo con CLINICAL HISTORY: Atypical neuro symptoms, left arm numbness, and pain. TECHNIQUE: Axial non-contrast CT scan of the brain was performed from the skull base to the high parietal region. One of the following dose reduction techniques were utilized for this exam: Automated exposure control, adjustment of the mA and/or kV according to patient size, use of iterative reconstruction. CTDI: 79.29mGy , DLP: 1409.53 mGy.cm COMPARISON: None. FINDINGS: Brain Parenchyma: Normal attenuation of the cerebral hemispheres, cerebellum, and brainstem. No evidence of acute infarct, hemorrhage, or mass effect. No abnormal areas of hypo- or hyperattenuation. Ventricular System: Ventricles are normal in size and configuration. No evidence of hydrocephalus or ventricular enlargement. Subarachnoid Spaces: Normal sulci and cisterns. No evidence of subarachnoid hemorrhage or extra-axial fluid collections. Cerebellum and Brainstem: No masses, lesions, or areas of abnormal density. Orbits: Normal appearance of the globes, optic nerves, and extraocular muscles. No evidence of orbital masses or abnormal density. 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 Clear other paranasal sinuses. No evidence of sinusitis or mucosal thickening. Mastoid Air Cells: Clear mastoid air cells. No evidence of mastoiditis. Skull: Normal skull morphology. IMPRESSION: 1. No evidence of established territorial ischemic infarction or hemorrhage. 2. If clinically indicated, MRI DWI is the modality of choice to rule out acute ischemic infarction. Electronically signed by Nacho Falcon 07-12-2025 03:52 AM
[2025-07-12 04:09] LABS: Alanine Aminotransferase 19.0 U/L (7-52); Albumin Globulin Ratio 1.1 (0.9-2); Alkaline Phosphatase 59.0 U/L (34-104); Anion Gap 11.0 (3-11); Bilirubin,Total 0.7 mg/dl (0.2-1.0); Blood Urea Nitrogen 9.0 mg/dl (6-23); Calcium 9.3 mg/dl (8.6-10.3); Carbon Dioxide 19.0 mmol/L (21-32); Chloride 108.0 mmol/L (98-107); Creatinine Clr Calc Pharmacy 59.2 ml/min; Globulin 3.4 gm/dl (2.5-4.0); Glucose 231.0 mg/dl (70-99(Fasting)); Lipase 37.0 U/L (11-82); Sodium 138.0 mmol/L (136-145); Total Protein 7.3 gm/dl (6.0-8.3)
[2025-07-12] MEDS: OPTIRAY 320 125ml IV ONE (04:19)
[2025-07-12] MEDS ORDERED: VANCOMYCIN CONSULT ACTIVE PRN ×2 (04:20→12:40)
--- NOTE | 2025-07-12 04:20 | CT Scan Report ---
EXAM: CT cervical spine wo con CLINICAL HISTORY: Atypical neuro symptoms. TECHNIQUE: CT scan of the cervical spine was performed without the administration of intravenous contrast. Contiguous axial images were obtained from the skull base to the upper thoracic spine. Coronal and sagittal reformatted images were also reviewed. One of the following dose reduction techniques was utilized for this exam. Automated exposure control, adjustment of the mA and/or kV according to patient size, and use of iterative reconstruction. COMPARISON: None. FINDINGS: Vertebrae: No evidence of acute fracture or dislocation. Diffuse osteopenic changes noted. Grade I minimal retrolisthesis of C4 vertebral body. Multilevel anterior and posterior osteophytes with uncovertebral hypertrophy noted. Atlantoaxial osteoarthritic changes. Intervertebral Discs: Moderate to severe reduction of C4-C5 to C6-C7 intervertebral disc spaces with associated posterior disc osteophyte complexes. Large left-sided posterior disc osteophyte complexes at C4-C5 and C5-C6 levels causing moderate spinal canal stenosis and severe stenosis of left lateral recesses, compressing ipsilateral traversing nerve roots. Severe neural foraminal narrowing at C4-C5 level on left side, accentuated by facetal arthropathy, compressing exiting nerve root. Moderate neural foraminal narrowing at C5-C6 level on left side, accentuated by facetal arthropathy, impinging/mildly compressing exiting nerve root. Facet Joints: Severe degenerative changes. Prevertebral Soft Tissues: The prevertebral soft tissues are normal in thickness without evidence of mass or abnormal fluid collection. IMPRESSION: 1. Advanced cervical spondylodegenerative changes as described above. 2. Large left-sided posterior disc osteophyte complexes at C4-C5 and C5-C6 levels causing moderate spinal canal stenosis and severe stenosis of left lateral recesses, compressing ipsilateral traversing nerve roots. Recommended MRI for better evaluation if clinically warranted. 3. Severe neural foraminal narrowing at C4-C5 level on left side, accentuated by facetal arthropathy, compressing exiting nerve root. 4. Rest of the findings as described above. Electronically signed by Nacho Falcon 07-12-2025 04:20 AM
[2025-07-12] MEDS: SODIUM CHLORIDE 0.9% 1,000 ML IV SCH ×2 (04:26→13:26)
[2025-07-12] MEDS: PIPERACILLIN/TAZOBACTAM 4.5 GM/100 ML BAG IV ONE (04:27)
--- NOTE | 2025-07-12 04:43 | XRay Report ---
EXAM: XR chest 1V portable CLINICAL HISTORY: Chest pain, nonspecific TECHNIQUE: An X-ray image of the chest is obtained in AP projection. COMPARISON: CT chest done in 06/10/2025. FINDINGS: Pulmonary Parenchyma: Haziness is seen in the left lower zone. Obliteration of the left costophrenic angle noted. [id number] lower zonal /OBX.5.1.1OBX.5.1.2 right upper zonal faint atelectasis (stable)./OBX.5.1.2/OBX.5.1 Heart and Mediastinum: Enlarged heart size (likley projectional). No mediastinal widening or masses. No hilar or mediastinal lymphadenopathy. Bony Thorax: Bony thorax appears intact without fractures or deformities. Soft Tissues: Soft tissues overlying the chest wall are unremarkable. IMPRESSION: Imaging findings are likely due to mild left sided pleural effusion with underlying consolidation/collapse, would recommend clinical lab correlation and further workup. Interval new. Electronically signed by Nacho Falcon 07-12-2025 04:43 AM
--- NOTE | 2025-07-12 04:44 | XRay Report ---
EXAM: XR shoulder LT min 2V routine CLINICAL HISTORY: left arm pain TECHNIQUE: X-ray images of the left shoulder were obtained in anteroposterior (AP) and Y-view projections. COMPARISON: No prior studies available for comparison. FINDINGS: Bone Structure: A faint irregular lucent line seen through the left glenoid, of query clinical significance, for further assessment by CT if clinically indicated. Otherwise: Bone structure is normal and aligned. No evidence of dislocation. The humeral head is properly positioned in the glenoid fossa. No osseous lesions or abnormalities identified. Joint Spaces: Glenohumeral joint spaces are normal. No evidence of joint effusion or subluxation. Soft Tissues: Soft tissues appear normal and unremarkable. No soft tissue swelling, calcifications, or foreign bodies noted. IMPRESSION: 1. A faint irregular lucent line seen through the left glenoid could be due to overlapping structures or a nondisplaced fracture, of query clinical significance, for further assessment by CT if clinically indicated. Disclaimer: A subtle bone abnormality or fracture may not be readily apparent on X-rays, thus clinical correlation and further imaging including follow-up CT, MRI, or follow-up X-rays are advised as needed. Electronically signed by Nacho Falcon 07-12-2025 04:43 AM
[2025-07-12] MEDS: VANCOMYCIN HCL 2,000 MG in SODIUM CHLORIDE 0.9% 500 ML IV ONE (05:03)
--- NOTE | 2025-07-12 05:24 | CT Scan Report ---
EXAM: CT angio chest PE protocol CLINICAL HISTORY: PE TECHNIQUE: Contiguous axial images were obtained from the neck base through the upper abdomen following intravenous administration of iodinated contrast material. Angiographic images were processed, 3D MIP images were acquired for interpretation. If IV contrast material had not been administered, the likelihood of detecting abnormalities relevant to the patient's condition would have been substantially decreased. Coronal and sagittal 3-D MIPs were likewise performed and indicated to increase the sensitivity of detectin diffuse clinically relevant pathology. CT scan was performed according to ALARA (as low as reasonable achievable). 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 The central airways are patent. Rest of lungs are clear. No pleural effusion. The heart, aorta, and pulmonary arteries are of normal size and configuration. There are no appreciable coronary artery and aortic atherosclerotic calcifications. No pericardial effusion is identified. The thyroid is unremarkable. No mediastinal, hilar, or axillary lymphadenopathy is noted. No suspicious lytic or sclerotic osseous lesions are identified. IMPRESSION: No evidence of pulmonary embolism. Multiple atelectatic bands with vascular crowding are noted involving bilateral lower lobes- sequelae of infection.-new finding. No other new interval abnormality since prior study. Electronically signed by Demarco Hernandez 07-12-2025 05:24 AM
--- NOTE | 2025-07-12 05:29 | CT Scan Report ---
EXAM: CT abd pelvis IV con only CLINICAL HISTORY: 30k wbc, recent surg TECHNIQUE: Contiguous axial images were obtained from the level of the diaphragm to the pubic symphysis with intravenous contrast. Coronal and sagittal reconstructions were likewise performed and indicated to increase the sensitivity for detecting clinically relevant pathology. If IV contrast material had not been administered, the likelihood of detecting abnormalities relevant to the patient's condition would have been substantially decreased. CT scan was performed according to ALARA (as low as reasonable achievable). COMPARISON: None. FINDINGS: The visualized lung bases are clear. The liver is normal in size and attenuation. No focal liver lesions are seen. There is no intra or extrahepatic biliary ductal dilatation. Hepatic vasculature is patent. The gallbladder is surgically removed. The pancreas, and adrenal glands are unremarkable. Spleen appears enlarged in size measuring about 15 cm. Evidence of patchy hypodense lesions are noted involving splenic parenchyma- possibility of splenic infarct. The kidneys are normal in size and attenuation. There is no hydronephrosis or perinephric fat stranding. No renal calculi or renal masses are identified. The ureters are normal in caliber and no ureteral calculi are seen. The bladder is normal in contour. Pelvic viscera are unremarkable. Right hemicolectomy status. The anastomosis site shows mild inflammatory changes. Mild mucosal thickening is noted involving sigmoid colon- ould be transient due to collapse bowel loop. Mild edematous left rectus abdominis muscle muscle and adjacent omentum in left lower quadrant- sequelae of recent intervention, likely. Minimal interbowel free fluid noted in pelvis No focal or diffuse bowel wall thickening or evidence of bowel obstruction is identified. Abdominal and pelvic vasculature is patent. No adenopathy or fluid collections are seen. No aggressive appearing osseous lesions are identified. IMPRESSION: 1. Right hemicolectomy status. The anastomosis site shows mild inflammatory changes. 2. Mild mucosal thickening is noted involving sigmoid colon- could be transient due to a collapsed bowel loop. 3. Minimal interbowel free fluid noted in pelvis 4. 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 5. Mild edematous left rectus abdominis muscle muscle and adjacent omentum in left lower quadrant- sequelae of recent intervention, likely. Electronically signed by Demarco Hernandez 07-12-2025 05:28 AM
--- NOTE | 2025-07-12 05:55 | Emergency Department Note ---
History of Present Illness General Chief complaint: Arm Pain Stated complaint: L ARM NUMBESS AND PAIN Time Seen by Provider: 07/12/25 02:44 History of Present Illness Maximum Pain Intensity: 7 This is a 59-year-old female presenting to the emergency department via EMS from home for evaluation of left arm pain and numbness. Past medical history includes HIV, colon mass, and pulmonary nodule with high risk for malignancy. Patient has a recent history of colectomy with reanastomosis at [facility] in [place] about 2 weeks ago. Patient has not had any fevers or chills. No chest pain, chest tightness, or shortness of breath. She has had surgical follow-up and does have some mild persistent drainage from her surgical wounds, but otherwise seems to be recovering well. Patient does not have any injury or trauma to her arm. She is able to move the arm, however it feels different than normal. She does not have symptoms of her left leg and no facial symptoms. She has not taken anything [id number] for symptoms and rates her discomfort a 7/10. Home Medications Medication Instructions Recorded Confirmed Type bupropion HCl 200 mg tablet,12 hr 200 mg PO QAM 09/23/19 07/12/25 History sustained-release (Wellbutrin SR) gabapentin 300 mg capsule 300 mg PO QAM 09/23/19 07/12/25 History albuterol sulfate 90 mcg/actuation 2 puffs inhalation Q6H PRN 04/18/20 07/12/25 History aerosol inhaler (Ventolin HFA) Shortness Of Breath Or Wheezing mirtazapine 15 mg tablet 15 mg PO HS 06/12/20 07/12/25 History alendronate 70 mg tablet 70 mg PO WK 06/08/25 07/12/25 History bictegravir 50 mg-emtricitabine 1 tab PO QAM 06/08/25 07/12/25 History 200 mg-tenofovir alafenam 25 mg tablet (Biktarvy) clopidogrel 75 mg tablet 75 mg PO QPM 06/08/25 07/12/25 History empagliflozin 10 mg tablet 10 mg PO QAM 06/08/25 07/12/25 History (Jardiance) escitalopram oxalate 20 mg tablet 20 mg PO QAM 06/08/25 07/12/25 History fluticasone propionate 220 2 puff inhalation BID 06/08/25 07/12/25 History mcg/actuation HFA aerosol inhaler gabapentin 600 mg tablet 600 - 1,200 mg PO TID 06/08/25 07/12/25 History insulin aspart U-100 100 unit/mL 1 sliding scale dose subcut TID 06/08/25 07/12/25 History (3 mL) subcutaneous pen (Novolog FlexPen U-100 Insulin aspart) insulin glargine 100 unit/mL (3 28 unit subcut HS 06/08/25 07/12/25 History mL) subcutaneous pen (Lantus Solostar U-100 Insulin) levocetirizine 5 mg tablet 2.5 mg PO QPM 06/08/25 07/12/25 History montelukast 10 mg tablet 10 mg PO HS 06/08/25 07/12/25 History pantoprazole 20 mg tablet,delayed 20 mg PO QAM 06/08/25 07/12/25 History release prazosin 1 mg capsule 1 mg PO HS 06/08/25 07/12/25 History rivaroxaban 20 mg tablet (Xarelto) 20 mg PO HS 06/08/25 07/12/25 History rosuvastatin 10 mg tablet 10 mg PO HS 06/08/25 07/12/25 History acetaminophen 325 mg tablet 325 mg PO Q6 07/12/25 07/12/25 History meclizine 25 mg tablet 25 mg PO TID PRN Nausea And 07/12/25 07/12/25 History Vomiting ondansetron 4 mg disintegrating 4 mg PO Q8 PRN Nausea And Vomiting 07/12/25 07/12/25 History tablet oxycodone 10 mg tablet 10 mg PO Q8 07/12/25 07/12/25 History Allergies Allergy/AdvReac Type Severity Reaction Status Date / Time levofloxacin AdvReac Intermediate Nausea/Vomiting Verified 06/08/25 13:47 "extreme" Past Med/Surg History Problem List (Updated 07/12/25 @ 21:35 by Evaristo Felix PA-C) Hospital-acquired pneumonia Arm paresthesia, left (Acute) Pain of left upper extremity S/P laparoscopic right hemicolectomy Infected surgical wound Pneumonia of both lower lobes Severe sepsis (Acute) Cervical disc herniation (Acute) Pulmonary nodule less than 6 mm in diameter with high risk for malignant neoplasm Colonic mass Acute blood loss anemia Abnormal CT scan, colon History of aortic dissection HIV (human immunodeficiency virus infection) Abnormal computed tomography angiography (CTA) of abdomen and pelvis Anemia (Acute) Encounter for pre-operative examination Acute renal failure (Acute) HIV (human immunodeficiency virus infection) (Acute) Hypokalemia (Acute) Osteoarthritis of right knee Overdose (Acute) Sepsis (Acute) Situational depression (Acute) Urinary tract infection (Acute) PTSD (post-traumatic stress disorder) Human immunodeficiency virus (HIV) seropositivity (Chronic 11/21/12) DR. MULTANI ([facility]) FOLLOWS PATIENT Medical History (Updated 07/12/25 @ 21:35 by Evaristo Felix PA-C) Degenerative disc disease Osteoarthritis Chronic kidney disease STAGE 3 "COUNTS ARE IMPROVING" GERD (gastroesophageal reflux disease) History of cancer of vagina S/P surgical intervention and chemotherapy Anxiety and depression Asthma LAST USED RESCUE INHALER 2 MONTHS AGO Surgical History (Updated 07/12/25 @ 13:58 by Cristy Lozada PA-C) History of hysterectomy History of total knee replacement RT History of colonoscopy History of tooth extraction History of tonsillectomy and adenoidectomy History of myringotomy Family History Mother Family history of diabetes mellitus Father Family history of diabetes mellitus Grandfather (Maternal) Family history of diabetes mellitus Grandmother (Maternal) Family history of diabetes mellitus Social History Smoking Status: Former smoker Tobacco Type: Cigarettes Cigarettes Per Day: 1 pack a week; Second Hand Exposure: Yes; Do You Dip or Chew Tobacco: No; Hx Alcohol Use: No Hx Substance Use: No Preferred Language: Cambodian Communication Ability: Effective Job Compositor Required: No Beliefs That Will Affect Care: None Current Living Situation: Alone Feels Safe at Home: Yes Assistive Devices: None Review of Systems A total of 10 systems reviewed and were otherwise negative Physical Exam Vital Signs Vital Signs - 24 hr 07/12/25 02:50 07/12/25 02:53 07/12/25 04:06 Temperature 37 C Temperature Source Oral Pulse Rate 115 H 114 H 114 H Pulse Rate [Apical] Pulse Rhythm Regular Pulse Strength Normal Respiratory Rate 22 22 Respiratory Effort / Characteristics Non-Labored Spontaneous Respiratory Depth Normal Respiratory Pattern Regular Blood Pressure 144/84 H 129/63 Blood Pressure [Right Arm] Blood Pressure Mean 104 85 Blood Pressure Mean [Right Arm] Blood Pressure Position Sitting Blood Pressure Position [Right Arm] Pulse Oximetry 95 94 Oxygen Delivery Method Room Air Room Air Oxygen Flow Rate Sepsis Recent Fever Within 48 Hours No Sepsis New/Unexplained Change in Mental Status N/A Sepsis Action Taken by Nursing No Action Required 07/12/25 04:30 07/12/25 05:00 07/12/25 06:03 Temperature Temperature Source Pulse Rate 106 H 102 H 95 H Pulse Rate [Apical] Pulse Rhythm Pulse Strength Respiratory Rate 22 20 20 Respiratory Effort / Characteristics Respiratory Depth Respiratory Pattern Blood Pressure 127/57 L 117/57 L 118/71 Blood Pressure [Right Arm] Blood Pressure Mean 80 89 91 Blood Pressure Mean [Right Arm] Blood Pressure Position Blood Pressure Position [Right Arm] Pulse Oximetry 94 95 94 Oxygen Delivery Method Room Air Room Air Oxygen Flow Rate Sepsis Recent Fever Within 48 Hours Sepsis New/Unexplained Change in Mental Status Sepsis Action Taken by Nursing 07/12/25 06:58 07/12/25 10:00 07/12/25 11:40 Temperature Temperature Source Pulse Rate 100 H Pulse Rate [Apical] 111 H 109 H Pulse Rhythm Pulse Strength Respiratory Rate 16 22 Respiratory Effort / Characteristics Non-Labored Spontaneous Respiratory Depth Normal Respiratory Pattern Blood Pressure Blood Pressure [Right Arm] 137/77 139/77 Blood Pressure Mean Blood Pressure Mean [Right Arm] 97 97 Blood Pressure Position Blood Pressure Position [Right Arm] Semi-fowlers Pulse Oximetry 95 95 Oxygen Delivery Method Nasal Cannula Nasal Cannula Oxygen Flow Rate 2 2 Sepsis Recent Fever Within 48 Hours Sepsis New/Unexplained Change in Mental Status Sepsis Action Taken by Nursing 07/12/25 12:00 Temperature Temperature Source Pulse Rate Pulse Rate [Apical] 113 H Pulse Rhythm Pulse Strength Respiratory Rate 17 Respiratory Effort / Characteristics Non-Labored Spontaneous Respiratory Depth Normal Respiratory Pattern Blood Pressure Blood Pressure [Right Arm] 143/71 H Blood Pressure Mean Blood Pressure Mean [Right Arm] 95 Blood Pressure Position Blood Pressure Position [Right Arm] Semi-fowlers Pulse Oximetry 96 Oxygen Delivery Method Room Air Oxygen Flow Rate Sepsis Recent Fever Within 48 Hours Sepsis New/Unexplained Change in Mental Status Sepsis Action Taken by Nursing VITALS: Vitals are noted on the nurse's note and reviewed by myself. Vital signs with tachycardia GENERAL: White female who appears mildly uncomfortable secondary to her stated complaint. HEAD: Normocephalic atraumatic. NECK: Supple without nuchal rigidity. No lymphadenopathy. No thyromegaly. Cervical spine is nontender. HEART: Tachycardic rate and rhythm without murmurs gallops or rubs. LUNGS: Clear to auscultation bilaterally without wheezes, rales or rhonchi. No retractions or accessory muscle use. ABDOMEN: Positive normal bowel sounds x 4. Soft, nontender, without masses or organomegaly. Mild serous drainage noted from surgical wounds MUSCULOSKELETAL: No muscle atrophy, erythema, or edema noted. Full range of motion in all extremities. No tenderness to palpation. NEURO: Patient was alert and oriented to person place and time. CN II through XII grossly intact. No focal neurological deficits. GCS 15. SKIN: The skin was without rashes, erythema, edema, or bruising. Capillary refill less than 2 seconds. Course Administered Medications Clopidogrel Bisulfate (Clopidogrel Bisulfate 75 Mg Tab) 75 mg PO QPM GOLD Stop: 08/11/25 20:59 Last Admin: 07/12/25 20:20 Dose: 75 mg Documented By: NICOLE Gabapentin (Gabapentin 600 Mg Tab) 1,200 mg PO HS GOLD Stop: 08/11/25 20:59 Last Admin: 07/12/25 20:20 Dose: 1,200 mg Documented By: NICOLE Piperacillin Sod/Tazobactam Sod (Zosyn) 4.5 gm in 100 mls @ 25 mls/hr IV Q8H GOLD; Protocol Stop: 07/14/25 12:59 Last Admin: 07/12/25 20:11 Dose: 25 mls/hr Documented By: Infusion: 07/12/25 17:48 Dose: Infused Documented By: Admin: 07/12/25 13:26 Dose: 25 mls/hr Documented By: VICENTA Sodium Chloride (Nss) 1,000 mls @ 125 mls/hr IV .Q8H GOLD Stop: 07/13/25 07:00 Last Admin: 07/12/25 20:19 Dose: 125 mls/hr Documented By: Infusion: 07/12/25 20:19 Dose: Infused Documented By: Admin: 07/12/25 13:26 Dose: 125 mls/hr Documented By: VICENTA Insulin Aspart (Insulin Aspart Per Unit Charge) 0 units SC ACHS GOLD Stop: 08/11/25 16:29 Last Admin: 07/12/25 20:11 Dose: 4 units Documented By: NICOLE Co-signed By: JUVENAL Admin: 07/12/25 17:14 Dose: 8 units Documented By: RAUL Co-signed By: HEMANTH Insulin Glargine (Lantus Per Unit Charge) 15 units SQ DAILY GOLD Stop: 08/11/25 16:29 Last Admin: 07/12/25 17:14 Dose: 15 units Documented By: RAUL Co-signed By: HEMANTH Mirtazapine (Mirtazapine Tab 15 Mg Tab) 15 mg PO HS GOLD Stop: 08/11/25 20:59 Last Admin: 07/12/25 20:12 Dose: 15 mg Documented By: NICOLE Miscellaneous (Prdammjbv-Ikrnlvqi-Zbyqdrt Ala [Biktarvy] 50-200-25 Mg Order Awaiting Action) 1 each N/A QS GOLD Stop: 08/11/25 15:59 Last Admin: 07/12/25 16:13 Dose: Not Given Documented By: RAUL Montelukast Sodium (Montelukast Sodium 10 Mg Tablet) 10 mg PO HS GOLD Stop: 08/11/25 20:59 Last Admin: 07/12/25 20:12 Dose: 10 mg Documented By: NICOLE Prazosin HCl (Prazosin Hcl 1 Mg Cap) 1 mg PO HS [facility] Stop: 08/11/25 20:59 Last Admin: 07/12/25 20:12 Dose: 1 mg Documented By: NICOLE Rivaroxaban (Rivaroxaban 20 Mg Tab) 20 mg PO HS [facility] Stop: 08/11/25 20:59 Last Admin: 07/12/25 20:13 Dose: 20 mg Documented By: NICOLE Rosuvastatin Calcium (Rosuvastatin Calcium 10 Mg Tab) 10 mg PO HS [facility] Stop: 08/11/25 20:59 Last Admin: 07/12/25 20:12 Dose: 10 mg Documented By: NICOLE Discontinued Medications Dexamethasone Sodium Phosphate (DexamethasonePf 10 Mg/Ml Vial) 10 mg IV NOW ONE Stop: 07/12/25 02:54 Last Admin: 07/12/25 03:02 Dose: 10 mg Documented By: LONNY Gadobutrol (Gadobutrol 65ml Vial) 9.5 ml IV ONCE ONE Stop: 07/12/25 10:00 Last Admin: 07/12/25 10:00 Dose: 9.5 ml Documented By: RIAZ Acetaminophen (Ofirmev) 1,000 mg in 100 mls @ 400 mls/hr IV NOW STA Stop: 07/12/25 03:07 Last Infusion: 07/12/25 03:24 Dose: Infused Documented By: Admin: 07/12/25 03:02 Dose: 400 mls/hr Documented By: LONNY Vancomycin HCl 2,000 mg/ (Sodium Chloride) 540 mls @ 200 mls/hr IV NOW ONE Stop: 07/12/25 07:01 Last Infusion: 07/12/25 08:20 Dose: Infused Documented By: Admin: 07/12/25 05:03 Dose: 200 mls/hr Documented By: LONNY Piperacillin Sod/Tazobactam Sod (Zosyn) 4.5 gm in 100 mls @ 200 mls/hr IV NOW ONE; Protocol Stop: 07/12/25 04:49 Last Infusion: 07/12/25 05:00 Dose: Infused Documented By: Admin: 07/12/25 04:27 Dose: 200 mls/hr Documented By: LONNY Sodium Chloride (Nss) 1,000 mls @ 999 mls/hr IV .Q1H1M GOLD Stop: 07/12/25 06:30 Last Infusion: 07/12/25 06:07 Dose: Infused Documented By: Admin: 07/12/25 05:05 Dose: 999 mls/hr Documented By: Infusion: 07/12/25 05:05 Dose: Infused Documented By: Admin: 07/12/25 04:26 Dose: 999 mls/hr Documented By: LONNY Lactated Ringer's (Lr) 1,000 mls @ 125 mls/hr IV .Q8H GOLD Stop: 07/13/25 07:00 Last Admin: 07/12/25 13:25 Dose: Not Given Documented By: VICENTA Ioversol (Optiray 320 125ml) 125 ml IV ONCE ONE Stop: 07/12/25 04:19 Last Admin: 07/12/25 04:19 Dose: 118 ml Documented By: HARIKA Medical Decision Making Differential Diagnosis Differential diagnosis includes, but is not limited to: Sprain, strain, fracture, dislocation, subluxation, cancer, spinal injury, sepsis, postoperative infection, and others Laboratory Data 07/12/25 03:01 07/12/25 03:01 Lab Results 07/12/25 07/12/25 07/12/25 Range/Units 03:01 03:26 05:48 WBC 29.96 H (4.8-10.8) K/ul RBC 5.39 (4.20-5.40) M/uL Hgb 11.0 L (12.0-16.0) g/dl Hct 40.6 (37.0-47.0) % MCV 75.3 L (80.0-100.0) fL MCH 20.4 L (25.0-34.0) pg MCHC 27.1 L (32.0-36.0) g/dL RDW Std Deviation 54.4 H (36.4-46.3) fL RDW Coeff of Ranjit 21.3 H (11.5-14.5) % Plt Count 566 H (130-400) K/uL MPV 10.5 (9.4-12.4) fL Immature Gran % (Auto) 0.7 % Neut % (Auto) 86.7 % Lymph % (Auto) 6.4 % [place] % (Auto) 4.8 % Eos % (Auto) 0.9 % Baso % (Auto) 0.5 % Neut # (Auto) 26.00 H (1.40-6.50) K/uL Lymph # (Auto) 1.92 (1.20-3.40) K/uL [place] # (Auto) 1.44 H (0.11-0.59) K/uL Eos # (Auto) 0.26 (0.00-0.50) K/uL Baso # (Auto) 0.14 (0.00-0.20) K/uL Immature Gran # (Auto) 0.20 (0.01-0.20) K/uL Toxic Vacuolation 1+ Polychromasia 2+ Anisocytosis Present Tear Drop Cells 1+ Ovalocytes 1+ Sodium 138 (136-145) mmol/L Potassium 3.7 (3.5-5.1) mmol/L Chloride 108 H (98-107) mmol/L Carbon Dioxide 19 L (21-32) mmol/L Anion Gap 11 (3-11) BUN 9 (6-23) mg/dl Creatinine 1.12 (0.6-1.2) mg/dl Est Cr Clr Drug Dosing 59.2 ml/min eGFR 55.95 BUN/Creatinine Ratio 8.0 L (10-20) Glucose 231 H (70-99(Fasting)) mg/dl Lactate 2.9 H* 2.1 H* (0.4-2.0) mmol/L Calcium 9.3 (8.6-10.3) mg/dl Total Bilirubin 0.7 (0.2-1.0) mg/dl AST 27 (13-39) U/L ALT 19 (7-52) U/L Alkaline Phosphatase 59 (34-104) U/L Troponin I High Sens 4.6 (0-14) pg/ml Total Protein 7.3 (6.0-8.3) gm/dl Albumin 3.9 (3.4-5.0) gm/dl Globulin 3.4 (2.5-4.0) gm/dl Albumin/Globulin Ratio 1.1 (0.9-2) Lipase 37 (11-82) U/L Procalcitonin 0.23 (0-0.5) ng/ml Imaging Data Radiologist's Impression: Chest X-Ray 07/12/25 02:53 EXAM: XR chest 1V portable CLINICAL HISTORY: Chest pain, nonspecific TECHNIQUE: An X-ray image of the chest is obtained in AP projection. COMPARISON: CT chest done in 06/10/2025. FINDINGS: Pulmonary Parenchyma: Haziness is seen in the left lower zone. Obliteration of the left costophrenic angle noted. [id number] lower zonal /OBX.5.1.1OBX.5.1.2 right upper zonal faint atelectasis (stable)./OBX.5.1.2/OBX.5.1 Heart and Mediastinum: Enlarged heart size (likley projectional). No mediastinal widening or masses. No hilar or mediastinal lymphadenopathy. Bony Thorax: Bony thorax appears intact without fractures or deformities. Soft Tissues: Soft tissues overlying the chest wall are unremarkable. IMPRESSION: Imaging findings are likely due to mild left sided pleural effusion with underlying consolidation/collapse, would recommend clinical lab correlation and further workup. Interval new. Electronically signed by Nacho Falcon 07-12-2025 04:43 AM Cervical Spine MRI 07/12/25 06:05 MR cervical spine wo/w con HISTORY: 59 years-old Female L arm pain, abnormal CT. Eval for infx vs other. Acute neck pain with left upper extremity radicular symptoms COMPARISON: CT cervical spine 07/12/2025 TECHNIQUE: Multiplanar multisequence MRI cervical spine was obtained with and without IV contrast FINDINGS: Mild levoscoliosis of the upper thoracic spine. The study is motion degraded. The imaged posterior fossa structures appear unremarkable. There is normal signal within the brainstem, cervical and imaged upper thoracic spinal cord. No acute fracture, subluxation, endplate erosion, significant marrow edema or marrow replacing process. No epidural or paraspinal fluid collections. No abnormal enhancement identified. C2-C3: Mild intervertebral disc space narrowing and uncovertebral hypertrophy with moderate facet arthrosis. No central canal or neural foraminal narrowing. C3-C4: 3 mm anterolisthesis, likely secondary to chronic moderate facet arthrosis. Mild intervertebral disc space narrowing with uncovertebral hypertrophy and small circumferential annular disc bulge. No central canal or neural foraminal narrowing. C4-C5: Mild to moderate intervertebral disc space narrowing with 1.4 x 0.7 x 0.9 cm disc osteophyte complex (image 12 series 4 and image 19 series 6) which is nearly completely ossified on the comparison CT. Mild central canal stenosis with AP dimension of the thecal sac measuring 9 mm. Severe left lateral recess narrowing with moderate to severe left foraminal narrowing. The right neural foramen is patent. C5-C6: Mild to moderate intervertebral disc space narrowing. Circumferential disc osteophyte complex, most pronounced centrally with mild to moderate facet arthrosis. Mild central canal stenosis with AP dimension of the thecal sac measuring 9 mm. The right neural foramen is patent. Mild left neural foraminal narrowing. C6-C7: Moderate disc space narrowing with posterior disc osteophyte complex and mild to moderate facet arthrosis. Patent central canal and neural foramen. C7-T1: Mild facet arthrosis. No central canal or foraminal narrowing. IMPRESSION: 1. Motion degraded exam. 2. Large posterior disc osteophyte complex at C4-C5 with caudal extension contributes to cause mild central canal stenosis with severe left lateral recess and moderate to severe left foraminal narrowing. 3. Mild central canal stenosis is also present C5-C6. 4. No significant marrow edema or abnormal enhancement. ACT 112: Negative or not required by law. The above report was generated using voice recognition software. It may contain grammatical, syntax or spelling errors. Electronically signed by: Domenic Tohmas M.D. 07/12/2025 10:37 AM ECG Data Attestation: I personally reviewed and interpreted this ECG as follows: Indication: + other Additional Comments: Sinus tachycardia [address] elevation When compared to EKG 08 June 2025, questionable changes in anterior lateral leads MDM Narrative Physical exam and history were performed. Nursing notes, EMR, and Medication List were personally reviewed. No social concerns were identified as barriers to patients care. History was provided by the Patient and EMS. Patient appears to have left arm pain bringing her to the ER. Patient is able to move the arm and has sensation, however she has subjective weakness. She is also tachycardic on arrival and does have a recent surgery. IV access was established and labs were obtained. She was given IV Toradol and IV Decadron for symptoms. There is a history of colonic mass and high risk pulmonary nodule, and because of this she was sent to CT scan for imaging of her head and neck. Patient's blood work is as above and was reviewed. She has a markedly elevated white count of 29.96. Additionally she has a mild anemia 11.1. Lipase and transaminases are not diagnostic. Troponin x 1 is negative. Initial lactic acid is 2.9 with blood cultures pending. Patient was given a sepsis fluid bolus as well as IV Zosyn and IV vancomycin. Due to the white count and concern for sepsis she was sent back to CT scan for imaging of her chest and belly. Imaging studies were independently reviewed by myself and radiology. The patient appears to have some significant findings in her neck causing the likely radicular symptoms into her left arm. She also may be developing pneumonia in her chest, which could be the cause of her sepsis. Abdominal studies are reassuring. Case was discussed with my attending. Patient does not seem well for discharge home. Escalation of care is felt to be necessary, and [facility] did review the patient's information, and requested MRI of the C- spine prior to admission. MRI was ordered. Patient remained in stable condition until the time of shift change. Case was was discussed with my colleague, ERNIE Lauren, who will assume care at this time. Please see Ms. Mcghee's dictation for further patient course, plan, and disposition pending MRI results. The chart was completed utilizing [employer] Speech Voice Recognition Software. Grammatical errors, random word insertions, pronoun errors, and incomplete sentences are an occasional consequence of this system due to software limitations, ambient noise, and hardware issues. Any formal questions or concerns about the content, text, or information contained within the body of this dictation should be directly addressed to the provider for clarification. Impression & Plan Severe sepsis, Arm paresthesia, left, Cervical disc herniation Discharge Plan Visit Data Chief Complaint: Arm Pain Stated Complaint: L ARM NUMBESS AND PAIN ED Provider: Leticia Jackson ED Midlevel Provider: Joana Mcghee Discharge Problem: Severe sepsis, Arm paresthesia, left, Cervical disc herniation Patient Disposition: Admitted As Inpatient Condition: Fair Discharge Instructions Interventions: ED Discharge Assessment Last Done: 07/12/25 15:33
--- NOTE | 2025-07-12 06:06 | Communication Note ---
Date of Service: July 12, 2025 I was requested to evaluate patient for admission at 5:45 AM. 59-year-old female coming in with left arm numbness and pain symptoms. Concern for radiculopathy and infection as per ED provider message. Antibiotics administered at the ER. CT cervical spine report as follows 1. Advanced cervical spondylodegenerative changes as described above. 2. Large left-sided posterior disc osteophyte complexes at C4-C5 and C5-C6 levels causing moderate spinal canal stenosis and severe stenosis of left lateral recesses, compressing ipsilateral traversing nerve roots. Recommended MRI for better evaluation if clinically warranted. 3. Severe neural foraminal narrowing at C4-C5 level on left side, accentuated by facetal arthropathy, compressing exiting nerve root. I requested ED provider to proceed with cervical MRI before admission by hospitalist service. No Ortho spine coverage this week at [facility] as per provider schedule. I will sign out this case to my colleague, Dr. Willard.
--- NOTE | 2025-07-12 08:31 | Emergency Department Note ---
ED Visit Note I received the patient in signout from Evaristo Felix PA-C at shift change. The patient was seen here in the emergency department last evening for arm pain. Please see Evaristo' dictation regarding complete history and physical examination at the time of initial evaluation. Patient was waiting on MRI results to determine admission versus transfer. The MRI resulted to show a large posterior disc osteophyte complex at C4-C5 with caudal extension contributes to cause mild central canal stenosis with severe left lateral recess and moderate to severe left foraminal narrowing. Mild Central canal stenosis was also present at C5-6. I reached out to the [facility] hospitalist group and spoke with Cinthya, who was with the PA working with [facility]. I gave her a report an update on the MRI results and she advised that I should contact orthopedic spine and get their recommendations to ensure that the patient was safe and able to be admitted here at [facility]. I reached out and spoke to Dr. Murrieta who is on-call for orthopedics today. I gave him a full report of the patient's chief complaint, current status and the results of her imaging. He was down to the emergency department and saw the patient at bedside. He advised that the patient would not be rushed to the OR to manage these issues that presented in her cervical spine and stated that he would not take the patient to the OR for another week or 2 but he felt comfortable with her staying here at [facility] and felt that she could be managed here. I reach back out to the [facility] hospitalist group and made them aware that Dr. Murrieta saw the patient here in the emergency department and felt comfortable with her admission here. They verbalized understanding and agreed to admit the patient under their service. Please refer to the [facility] for further evaluation and management of this patient.
[2025-07-12] MEDS: GADOBUTROL 65ML VIAL IV ONE (10:00)
--- NOTE | 2025-07-12 10:38 | Magnetic Resonance Report ---
MR cervical spine wo/w con HISTORY: 59 years-old Female L arm pain, abnormal CT. Eval for infx vs other. Acute neck pain with l eft upper extremity radicular symptoms COMPARISON: CT cervical spine 07/12/2025 TECHNIQUE: Multiplanar multisequence MRI cervical spine was obtained with and without IV contrast FINDINGS: Mild levoscoliosis of the upper thoracic spine. The study is motion degraded. The imaged posterior fo ssa structures appear unremarkable. There is normal signal within the brainstem, cervical and imaged upper thoracic spinal cord. No acute fracture, subluxation, endplate erosion, significant marrow jasmyne a or marrow replacing process. No epidural or paraspinal fluid collections. No abnormal enhancement i dentified. C2-C3: Mild intervertebral disc space narrowing and uncovertebral hypertrophy with moderate facet art hrosis. No central canal or neural foraminal narrowing. C3-C4: 3 mm anterolisthesis, likely secondary to chronic moderate facet arthrosis. Mild intervertebra l disc space narrowing with uncovertebral hypertrophy and small circumferential annular disc bulge. N o central canal or neural foraminal narrowing. C4-C5: Mild to moderate intervertebral disc space narrowing with 1.4 x 0.7 x 0.9 cm disc osteophyte c omplex (image 12 series 4 and image 19 series 6) which is nearly completely ossified on the compariso n CT. Mild central canal stenosis with AP dimension of the thecal sac measuring 9 mm. Severe left lat eral recess narrowing with moderate to severe left foraminal narrowing. The right neural foramen is p atent. C5-C6: Mild to moderate intervertebral disc space narrowing. Circumferential disc osteophyte complex, most pronounced centrally with mild to moderate facet arthrosis. Mild central canal stenosis with AP dimension of the thecal sac measuring 9 mm. The right neural foramen is patent. Mild left neural for aminal narrowing. C6-C7: Moderate disc space narrowing with posterior disc osteophyte complex and mild to moderate face t arthrosis. Patent central canal and neural foramen. C7-T1: Mild facet arthrosis. No central canal or foraminal narrowing. IMPRESSION: 1. Motion degraded exam. 2. 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 3. Mild central canal stenosis is also present C5-C6. 4. No significant marrow edema or abnormal enhancement. ACT 112: Negative or not required by law. The above report was generated using voice recognition software. It may contain grammatical, syntax o r spelling errors. Electronically signed by: Domenic Thomas M.D. 07/12/2025 10:37 AM
--- NOTE | 2025-07-12 12:22 | History & Physical Report ---
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 Escalera at [facility], history of reocclusion of SMA s/p mechanical thrombectomy of SMA with placement of 4 stents on 06/15/[address] Escalera at [facility] on Xarelto and Plavix, history of type B aortic dissection of the distal aortic arch [healed on repeat CTA abd/pelvis completed on 11/21/22], HIV on Biktarvy, hepatic steatosis, age-related osteoporosis, generalized osteoarthritis, migraines, depression/VICKIE and other problems as outlined in the chart who presented to the ED for evaluation of L arm pain and paresthesias. History obtained from the patient, discussion with ED provider and associated chart review. Patient seen at bedside in the ED with Dr. Boudreaux. Recent confinement under our service 06/08/25-06/11/25 due to ABLA s/p 3U PRBCs ISO a newly discovered colonic mass and RUL pulmonary nodule concerning for malignancy. S/p colonoscopy on 06/10/25 which revealed a >50mm polyp in the ascending colon (removed via hot snare), a medium (7-9mm) polyp in the descending colon (removed via cold snare). 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 Seen and evaluated by [facility] general surgery in the outpatient setting on 06/22/25 with recommendation to perform R hemicolectomy. Now s/p laparoscopic hand-assist R hemicolectomy on 06/30/[address] Jann Greenwood at [facility]. #Severe sepsis #Bilateral lower lobe PNA c/f likely HAP --> given recent admissions, as per above #Infected surgical wound --> large laparoscopic surgical incision on L aspect of abd w/ purulent drainage, surrounding erythema #S/p laparoscopic R hemicolectomy on 06/30/[address] Jann Greenwood at [facility] WBC 29.9k Lactic acidosis: initial 2.9 -> repeat 2.1 Check procal Pt w/ nonproductive cough x 4-5d, chills Chest CTA: no PE, multiple atelectatic bands with vascular crowding are noted involving BLL (new finding, sequelae of infection) S/p IV vanco, Zosyn in ED Blood cx pending Continue IV vanc, Zosyn pending cx results Obtain sputum cx as able Check nasal MRSA MIVF onboard (s/p 2L NSS in ED) --> follow repeat lactate Wound cx obtained from abd -Purulent drainage from superior most aspect of large abd incision site, erythema surrounding large abd incision site (pics provided in PE section of note) -Wound care consult, re: address appropriate dressing recs, monitoring Gen surg consulted -R/o deep tissue infection given evidence of superficial wound drainage from surgical incision site #L arm pain and paraesthesias --> suddenly developed overnight; no precipitating injuries/events #Severe cervical spinal stenosis w/ nerve impingement Cervical spine CT: Large left-sided posterior disc osteophyte complexes at C4-C5 and C5-C6 levels causing moderate spinal canal stenosis and severe stenosis of left lateral recesses, compressing ipsilateral traversing nerve roots. Severe neural foraminal narrowing at C4-C5 level on left side, accentuated by facetal arthropathy, compressing exiting nerve root. Cervical spine MRI: Large posterior disc osteophyte complex at C4-C5 with caudal extension contributes to cause mild central canal stenosis with severe left lateral recess and moderate to severe left foraminal narrowing. Mild central canal stenosis is also present C5-C6. No significant marrow edema or abnormal enhancement. Case discussed b/n on-call ortho spine surgeon, Dr. Murrieta, and ED provider -Urgent surgical intervention not indicated at this time -Recommending IV steroids (s/p 10mg IV dexamethasone in ED) --> will defer to ortho spine to order -Activity as tolerated -Realistically will need to consider possible surgical intervention once infection resolved if persistence of sx #Acute blood loss anemia requiring 3U PRBCs in 05/2025 --> during last confinement (as per above) H/H appears stable Continue to monitor #Mesenteric arterial disease #H/o occluded SMA s/p mechanical thrombectomy on 06/13/20 #H/o RRA thrombus s/p mechanical thrombectomy on 06/13/20 #H/o reocclusion of SMA s/p repeat mechanical thrombectomy w/ placement on 4 stents on 06/15/20 #Chronic anticoagulation use on Xarelto F/w [facility] vascular surgery, Dr. Escalera CTA abd/pelvis, 06/08/25 (during last confinement): a long stent is seen in the proximal superior mesenteric artery --> the stent is thrombosed with distal reconstitution of the vessel and collateral vessels between the SMA/KERRIE circulation and this is of indeterminate chronicity Continue Xarelto, Plavix given stable H/H and no s/sx of bleeding Will need OP vascular surgery f/u appt #History of short segment type B aortic dissection of the distal aortic arch Tx'd medically --> appears healed on repeat CTA abd/pelvis done 11/21/22 F/w [facility] vascular surgery as per above #HIV F/w [facility] ID, Dr. Multani II On Biktarvy CD4 792, viral load <20 last month per OP chart review --> will recheck #H/o tobacco use Recently quit smoking last month #VICKIE #Depression #Prolonged QTc --> 509ms on admitting EKG Continue Wellbutrin Holding Lexapro for now in light of prolonged QTc --> repeat EKG 2morrow to monitor this #Insulin-requiring DMII Hold home regimen Basal/bolus regimen while inpt Glycemic pharm consult Hgb A1c 5.5% 1mo ago Follow BSG checks ACHS #Lumbar DDD Continue gabapentin #Asthma Stable Continue Flovent, Singulair #HLD Continue statin #GERD Continue PPI #CKD stage IIIa Cr stable Baseline Cr ~1.0-1.3 per chart review Continue to monitor Avoid nephrotoxic agents as able #Splenomegaly Noted on CTA abd/pelvis last admission OP f/u advised #Indeterminate 13mm L adrenal nodule Noted on CTA abd/pelvis last admission OP f/u advised #Age-related osteoporosis On alendronate --> will hold for now DVT Prophylaxis: Xarelto Disposition: Admit to PCU Patient seen in collaboration with Dr. Boudreaux. Please see addendum. I spent a total of 68 minutes coordinating, documenting, and providing care for this patient excluding time spent in the performance of separately billed services or time spent by another provider/QHP. This included personally reviewing all current laboratories and imaging studies, medical reconciliation, outpatient chart review and discussion with specialists. This chart was completed in part utilizing Speech Voice Recognition Software. Grammatical errors, random word insertions, pronoun errors, and incomplete sentences are an occasional consequence of this system due to software limitations, ambient noise, and hardware issues. Any formal questions or concerns about the content, text, or information contained within the body of this dictation should be directly addressed to the provider for clarification. 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 Escalera at [facility], history of reocclusion of SMA s/p mechanical thrombectomy of SMA with placement of 4 stents on 06/15/[address] Escalera at [facility] on Xarelto and Plavix, history of type B aortic dissection of the distal aortic arch [healed on repeat CTA abd/pelvis completed on 11/21/22], HIV on Biktarvy, hepatic steatosis, age-related osteoporosis, generalized osteoarthritis, migraines, depression/VICKIE and other problems as outlined in the chart who presented to the ED for evaluation of L arm pain and paresthesias. History obtained from the patient, discussion with ED provider and associated chart review. Patient seen at bedside in the ED with Dr. Boudreaux. Of note, recent confinement under our service 06/08/25-06/11/25 due to ABLA s/p 3U PRBCs ISO a newly discovered colonic mass and RUL pulmonary nodule concerning for malignancy. Underwent colonoscopy on 06/10/25 which revealed a >50mm polyp in the ascending colon (removed via hot snare), a medium (7-9mm) polyp in the descending colon (removed via cold snare). 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 Seen and evaluated by [facility] general surgery in the outpatient setting on 06/22/25 with recommendation to perform R hemicolectomy. Now s/p laparoscopic hand-assist R hemicolectomy on 06/30/[address] Jann Greenwood at [facility]. Postoperative course had been relatively uneventful up until last evening when she developed sudden LUE pain and paraesthesias. No precipitating injuries or inciting events. Was sitting down watching TV when this suddenly started. No reported radiation of pain or paraesthesias into the neck. Upon further questioning, patient endorses having a nonproductive cough for past 4-5 days as well. No recorded fevers at home but patient does report "feeling hot" several times over the past few days. Denies any SOB or chest pain. Former smoker. Quit smoking last month following her confinement under our service. Moving bowels okay. Following a low-fiber diet. Denies any N/V. No urinary complaints. Endorses her surgical sites had reportedly been healing well. Has 3 laparoscopic sites - 1 large incision site to the L of the belly button, 1 small incision in the LLQ and 1 small incision toward the epigastrium. In the ED today, it was noted that the larger incision on her abdomen was draining purulent fluid from its most superior aspect. Plus there is some erythema surrounding the larger incision. Patient had not noticed these changes at home. Her incision sites had been draining minimal serous fluid beforehand but there was no erythema. These incisions are not tender to palpation. Allergies Allergy/AdvReac Type Severity Reaction Status Date / Time levofloxacin AdvReac Intermediate Nausea/Vomiting Verified 06/08/25 13:47 "extreme" Home Medications Medication Instructions Recorded Confirmed Type bupropion HCl 200 mg tablet,12 hr 200 mg PO QAM 09/23/19 07/12/25 History sustained-release (Wellbutrin SR) gabapentin 300 mg capsule 300 mg PO QAM 09/23/19 07/12/25 History albuterol sulfate 90 mcg/actuation 2 puffs inhalation Q6H PRN 04/18/20 07/12/25 History aerosol inhaler (Ventolin HFA) Shortness Of Breath Or Wheezing mirtazapine 15 mg tablet 15 mg PO HS 06/12/20 07/12/25 History alendronate 70 mg tablet 70 mg PO WK 06/08/25 07/12/25 History bictegravir 50 mg-emtricitabine 1 tab PO QAM 06/08/25 07/12/25 History 200 mg-tenofovir alafenam 25 mg tablet (Biktarvy) clopidogrel 75 mg tablet 75 mg PO QPM 06/08/25 07/12/25 History empagliflozin 10 mg tablet 10 mg PO QAM 06/08/25 07/12/25 History (Jardiance) escitalopram oxalate 20 mg tablet 20 mg PO QAM 06/08/25 07/12/25 History fluticasone propionate 220 2 puff inhalation BID 06/08/25 07/12/25 History mcg/actuation HFA aerosol inhaler gabapentin 600 mg tablet 600 - 1,200 mg PO TID 06/08/25 07/12/25 History insulin aspart U-100 100 unit/mL 1 sliding scale dose subcut TID 06/08/25 07/12/25 History (3 mL) subcutaneous pen (Novolog FlexPen U-100 Insulin aspart) insulin glargine 100 unit/mL (3 28 unit subcut HS 06/08/25 07/12/25 History mL) subcutaneous pen (Lantus Solostar U-100 Insulin) levocetirizine 5 mg tablet 2.5 mg PO QPM 06/08/25 07/12/25 History montelukast 10 mg tablet 10 mg PO HS 06/08/25 07/12/25 History pantoprazole 20 mg tablet,delayed 20 mg PO QAM 06/08/25 07/12/25 History release prazosin 1 mg capsule 1 mg PO HS 06/08/25 07/12/25 History rivaroxaban 20 mg tablet (Xarelto) 20 mg PO HS 06/08/25 07/12/25 History rosuvastatin 10 mg tablet 10 mg PO HS 06/08/25 07/12/25 History acetaminophen 325 mg tablet 325 mg PO Q6 07/12/25 07/12/25 History meclizine 25 mg tablet 25 mg PO TID PRN Nausea And 07/12/25 07/12/25 History Vomiting ondansetron 4 mg disintegrating 4 mg PO Q8 PRN Nausea And Vomiting 07/12/25 07/12/25 History tablet oxycodone 10 mg tablet 10 mg PO Q8 07/12/25 07/12/25 History Past Med/Surg History Problem List (Updated 07/12/25 @ 13:59 by Cristy Lozada PA-C) Arm paresthesia, left Pain of left upper extremity S/P laparoscopic right hemicolectomy Infected surgical wound Pneumonia of both lower lobes Severe sepsis Cervical disc herniation Pulmonary nodule less than 6 mm in diameter with high risk for malignant neoplasm Colonic mass Acute blood loss anemia Abnormal CT scan, colon History of aortic dissection HIV (human immunodeficiency virus infection) Abnormal computed tomography angiography (CTA) of abdomen and pelvis Anemia (Acute) Encounter for pre-operative examination Acute renal failure (Acute) HIV (human immunodeficiency virus infection) (Acute) Hypokalemia (Acute) Osteoarthritis of right knee Overdose (Acute) Sepsis (Acute) Situational depression (Acute) Urinary tract infection (Acute) PTSD (post-traumatic stress disorder) Human immunodeficiency virus (HIV) seropositivity (Chronic 11/21/12) DR. MULTANI ([facility]) FOLLOWS PATIENT Medical History (Updated 07/12/25 @ 13:59 by Cristy Lozada PA-C) Degenerative disc disease Osteoarthritis Chronic kidney disease STAGE 3 "COUNTS ARE IMPROVING" GERD (gastroesophageal reflux disease) History of cancer of vagina S/P surgical intervention and chemotherapy Anxiety and depression Asthma LAST USED RESCUE INHALER 2 MONTHS AGO Surgical History (Updated 07/12/25 @ 13:58 by Cristy Lozada PA-C) History of hysterectomy History of total knee replacement RT History of colonoscopy History of tooth extraction History of tonsillectomy and adenoidectomy History of myringotomy Family History Mother Family history of diabetes mellitus Father Family history of diabetes mellitus Grandfather (Maternal) Family history of diabetes mellitus Grandmother (Maternal) Family history of diabetes mellitus Social History Smoking Status: Former smoker Tobacco Type: Cigarettes Cigarettes Per Day: 1 pack a week; Second Hand Exposure: Yes; Do You Dip or Chew Tobacco: No; Hx Alcohol Use: No Hx Substance Use: No Preferred Language: Thai Communication Ability: Effective Sales Analyst Required: No Beliefs That Will Affect Care: None Current Living Situation: Alone Feels Safe at Home: Yes Assistive Devices: None Review of Systems 2 Review of Systems: At least ten systems reviewed and negative, except as noted in the HPI. Physical Exam 2 Physical Exam: Please refer to Dr. Boudreaux's addendum for physical examination findings. Pictures provided below of the patient's surgical incisions (x3) s/p laparoscopic R hemicolectomy: Results & Data Results & Data Vital Signs (Past 12 Hours) Vital Signs Temp Pulse Pulse Resp BP BP Pulse Ox 07/12/25 12:00 113 H 17 143/71 H 96 07/12/25 11:40 109 H 22 139/77 95 07/12/25 10:00 111 H 16 137/77 95 07/12/25 06:58 100 H 07/12/25 06:03 95 H 20 118/71 94 07/12/25 05:00 102 H 20 117/57 L 95 07/12/25 04:30 106 H 22 127/57 L 94 07/12/25 04:06 114 H 22 129/63 94 07/12/25 02:53 114 H 07/12/25 02:50 37 C 115 H 22 144/84 H 95 O2 Del Method O2 Flow Rate 07/12/25 12:00 Room Air 07/12/25 11:40 Nasal Cannula 2 07/12/25 10:00 Nasal Cannula 2 07/12/25 06:58 07/12/25 06:03 07/12/25 05:00 Room Air 07/12/25 04:30 Room Air 07/12/25 04:06 Room Air 07/12/25 02:53 07/12/25 02:50 Room Air Laboratory Results Short CBC 07/12/25 Range/Units 03:01 WBC 29.96 H (4.8-10.8) K/ul Hgb 11.0 L (12.0-16.0) g/dl Hct 40.6 (37.0-47.0) % Plt Count 566 H (130-400) K/uL BMP 07/12/25 03:01 Sodium 138 Potassium 3.7 Chloride 108 H Carbon Dioxide 19 L BUN 9 Creatinine 1.12 Glucose 231 H Calcium 9.3 Liver Function 07/12/25 Range/Units 03:01 Total Bilirubin 0.7 (0.2-1.0) mg/dl AST 27 (13-39) U/L ALT 19 (7-52) U/L Alkaline Phosphatase 59 (34-104) U/L Albumin 3.9 (3.4-5.0) gm/dl Diagnostic Findings Cervical Spine CT 07/12/25 02:53 EXAM: CT cervical spine wo con CLINICAL HISTORY: Atypical neuro symptoms. TECHNIQUE: CT scan of the cervical spine was performed without the administration of intravenous contrast. Contiguous axial images were obtained from the skull base to the upper thoracic spine. Coronal and sagittal reformatted images were also reviewed. One of the following dose reduction techniques was utilized for this exam. Automated exposure control, adjustment of the mA and/or kV according to patient size, and use of iterative reconstruction. COMPARISON: None. FINDINGS: Vertebrae: No evidence of acute fracture or dislocation. Diffuse osteopenic changes noted. Grade I minimal retrolisthesis of C4 vertebral body. Multilevel anterior and posterior osteophytes with uncovertebral hypertrophy noted. Atlantoaxial osteoarthritic changes. Intervertebral Discs: Moderate to severe reduction of C4-C5 to C6-C7 intervertebral disc spaces with associated posterior disc osteophyte complexes. Large left-sided posterior disc osteophyte complexes at C4-C5 and C5-C6 levels causing moderate spinal canal stenosis and severe stenosis of left lateral recesses, compressing ipsilateral traversing nerve roots. Severe neural foraminal narrowing at C4-C5 level on left side, accentuated by facetal arthropathy, compressing exiting nerve root. Moderate neural foraminal narrowing at C5-C6 level on left side, accentuated by facetal arthropathy, impinging/mildly compressing exiting nerve root. Facet Joints: Severe degenerative changes. Prevertebral Soft Tissues: The prevertebral soft tissues are normal in thickness without evidence of mass or abnormal fluid collection. IMPRESSION: 1. Advanced cervical spondylodegenerative changes as described above. 2. Large left-sided posterior disc osteophyte complexes at C4-C5 and C5-C6 levels causing moderate spinal canal stenosis and severe stenosis of left lateral recesses, compressing ipsilateral traversing nerve roots. Recommended MRI for better evaluation if clinically warranted. 3. Severe neural foraminal narrowing at C4-C5 level on left side, accentuated by facetal arthropathy, compressing exiting nerve root. 4. Rest of the findings as described above. Electronically signed by Nacho Falcon 07-12-2025 04:20 AM Chest X-Ray 07/12/25 02:53 EXAM: XR chest 1V portable CLINICAL HISTORY: Chest pain, nonspecific TECHNIQUE: An X-ray image of the chest is obtained in AP projection. COMPARISON: CT chest done in 06/10/2025. FINDINGS: Pulmonary Parenchyma: Haziness is seen in the left lower zone. Obliteration of the left costophrenic angle noted. [id number] lower zonal /OBX.5.1.1OBX.5.1.2 right upper zonal faint atelectasis (stable)./OBX.5.1.2/OBX.5.1 Heart and Mediastinum: Enlarged heart size (likley projectional). No mediastinal widening or masses. No hilar or mediastinal lymphadenopathy. Bony Thorax: Bony thorax appears intact without fractures or deformities. Soft Tissues: Soft tissues overlying the chest wall are unremarkable. IMPRESSION: Imaging findings are likely due to mild left sided pleural effusion with underlying consolidation/collapse, would recommend clinical lab correlation and further workup. Interval new. Electronically signed by Nacho Falcon 07-12-2025 04:[address] 07/12/25 02:53 EXAM: CT head/brain wo con CLINICAL HISTORY: Atypical neuro symptoms, left arm numbness, and pain. TECHNIQUE: Axial non-contrast CT scan of the brain was performed from the skull base to the high parietal region. One of the following dose reduction techniques were utilized for this exam: Automated exposure control, adjustment of the mA and/or kV according to patient size, use of iterative reconstruction. CTDI: 79.29mGy , DLP: 1409.53 mGy.cm COMPARISON: None. FINDINGS: Brain Parenchyma: Normal attenuation of the cerebral hemispheres, cerebellum, and brainstem. No evidence of acute infarct, hemorrhage, or mass effect. No abnormal areas of hypo- or hyperattenuation. Ventricular System: Ventricles are normal in size and configuration. No evidence of hydrocephalus or ventricular enlargement. Subarachnoid Spaces: Normal sulci and cisterns. No evidence of subarachnoid hemorrhage or extra-axial fluid collections. Cerebellum and Brainstem: No masses, lesions, or areas of abnormal density. Orbits: Normal appearance of the globes, optic nerves, and extraocular muscles. No evidence of orbital masses or abnormal density. 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 Clear other paranasal sinuses. No evidence of sinusitis or mucosal thickening. Mastoid Air Cells: Clear mastoid air cells. No evidence of mastoiditis. Skull: Normal skull morphology. IMPRESSION: 1. No evidence of established territorial ischemic infarction or hemorrhage. 2. If clinically indicated, MRI DWI is the modality of choice to rule out acute ischemic infarction. Electronically signed by Nacho Falcon 07-12-2025 03:52 AM Shoulder X-Ray 07/12/25 02:53 EXAM: XR shoulder LT min 2V routine CLINICAL HISTORY: left arm pain TECHNIQUE: X-ray images of the left shoulder were obtained in anteroposterior (AP) and Y-view projections. COMPARISON: No prior studies available for comparison. FINDINGS: Bone Structure: A faint irregular lucent line seen through the left glenoid, of query clinical significance, for further assessment by CT if clinically indicated. Otherwise: Bone structure is normal and aligned. No evidence of dislocation. The humeral head is properly positioned in the glenoid fossa. No osseous lesions or abnormalities identified. Joint Spaces: Glenohumeral joint spaces are normal. No evidence of joint effusion or subluxation. Soft Tissues: Soft tissues appear normal and unremarkable. No soft tissue swelling, calcifications, or foreign bodies noted. IMPRESSION: 1. A faint irregular lucent line seen through the left glenoid could be due to overlapping structures or a nondisplaced fracture, of query clinical significance, for further assessment by CT if clinically indicated. Disclaimer: A subtle bone abnormality or fracture may not be readily apparent on X-rays, thus clinical correlation and further imaging including follow-up CT, MRI, or follow-up X-rays are advised as needed. Electronically signed by Nacho Falcon 07-12-2025 04:43 AM Abdomen/Pelvis CT 07/12/25 03:18 EXAM: CT abd pelvis IV con only CLINICAL HISTORY: 30k wbc, recent surg TECHNIQUE: Contiguous axial images were obtained from the level of the diaphragm to the pubic symphysis with intravenous contrast. Coronal and sagittal reconstructions were likewise performed and indicated to increase the sensitivity for detecting clinically relevant pathology. If IV contrast material had not been administered, the likelihood of detecting abnormalities relevant to the patient's condition would have been substantially decreased. CT scan was performed according to ALARA (as low as reasonable achievable). COMPARISON: None. FINDINGS: The visualized lung bases are clear. The liver is normal in size and attenuation. No focal liver lesions are seen. There is no intra or extrahepatic biliary ductal dilatation. Hepatic vasculature is patent. The gallbladder is surgically removed. The pancreas, and adrenal glands are unremarkable. Spleen appears enlarged in size measuring about 15 cm. Evidence of patchy hypodense lesions are noted involving splenic parenchyma- possibility of splenic infarct. The kidneys are normal in size and attenuation. There is no hydronephrosis or perinephric fat stranding. No renal calculi or renal masses are identified. The ureters are normal in caliber and no ureteral calculi are seen. The bladder is normal in contour. Pelvic viscera are unremarkable. Right hemicolectomy status. The anastomosis site shows mild inflammatory changes. Mild mucosal thickening is noted involving sigmoid colon- ould be transient due to collapse bowel loop. Mild edematous left rectus abdominis muscle muscle and adjacent omentum in left lower quadrant- sequelae of recent intervention, likely. Minimal interbowel free fluid noted in pelvis No focal or diffuse bowel wall thickening or evidence of bowel obstruction is identified. Abdominal and pelvic vasculature is patent. No adenopathy or fluid collections are seen. No aggressive appearing osseous lesions are identified. IMPRESSION: 1. Right hemicolectomy status. The anastomosis site shows mild inflammatory changes. 2. Mild mucosal thickening is noted involving sigmoid colon- could be transient due to a collapsed bowel loop. 3. Minimal interbowel free fluid noted in pelvis 4. 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 5. Mild edematous left rectus abdominis muscle muscle and adjacent omentum in left lower quadrant- sequelae of recent intervention, likely. Electronically signed by Demarco Hernandez 07-12-2025 05:28 AM Chest CTA 07/12/25 03:18 EXAM: CT angio chest PE protocol CLINICAL HISTORY: PE TECHNIQUE: Contiguous axial images were obtained from the neck base through the upper abdomen following intravenous administration of iodinated contrast material. Angiographic images were processed, 3D MIP images were acquired for interpretation. If IV contrast material had not been administered, the likelihood of detecting abnormalities relevant to the patient's condition would have been substantially decreased. Coronal and sagittal 3-D MIPs were likewise performed and indicated to increase the sensitivity of detectin diffuse clinically relevant pathology. CT scan was performed according to ALARA (as low as reasonable achievable). COMPARISON: 12:36:00 VICE CHAIR FINDINGS: Multiple atelectatic bands with vascular crowding are noted involving bilateral lower lobes Adequate contrast bolus without evidence of pulmonary embolism. The central airways are patent. Rest of lungs are clear. No pleural effusion. The heart, aorta, and pulmonary arteries are of normal size and configuration. There are no appreciable coronary artery and aortic atherosclerotic calcifications. No pericardial effusion is identified. The thyroid is unremarkable. No mediastinal, hilar, or axillary lymphadenopathy is noted. No suspicious lytic or sclerotic osseous lesions are identified. IMPRESSION: No evidence of pulmonary embolism. Multiple atelectatic bands with vascular crowding are noted involving bilateral lower lobes- sequelae of infection.-new finding. No other new interval abnormality since prior study. Electronically signed by Demarco Hernandez 07-12-2025 05:24 AM Cervical Spine MRI 07/12/25 06:05 MR cervical spine wo/w con HISTORY: 59 years-old Female L arm pain, abnormal CT. Eval for infx vs other. Acute neck pain with left upper extremity radicular symptoms COMPARISON: CT cervical spine 07/12/2025 TECHNIQUE: Multiplanar multisequence MRI cervical spine was obtained with and without IV contrast FINDINGS: Mild levoscoliosis of the upper thoracic spine. The study is motion degraded. The imaged posterior fossa structures appear unremarkable. There is normal signal within the brainstem, cervical and imaged upper thoracic spinal cord. No acute fracture, subluxation, endplate erosion, significant marrow edema or marrow replacing process. No epidural or paraspinal fluid collections. No abnormal enhancement identified. C2-C3: Mild intervertebral disc space narrowing and uncovertebral hypertrophy with moderate facet arthrosis. No central canal or neural foraminal narrowing. C3-C4: 3 mm anterolisthesis, likely secondary to chronic moderate facet arthrosis. Mild intervertebral disc space narrowing with uncovertebral hypertrophy and small circumferential annular disc bulge. No central canal or neural foraminal narrowing. C4-C5: Mild to moderate intervertebral disc space narrowing with 1.4 x 0.7 x 0.9 cm disc osteophyte complex (image 12 series 4 and image 19 series 6) which is nearly completely ossified on the comparison CT. Mild central canal stenosis with AP dimension of the thecal sac measuring 9 mm. Severe left lateral recess narrowing with moderate to severe left foraminal narrowing. The right neural foramen is patent. C5-C6: Mild to moderate intervertebral disc space narrowing. Circumferential disc osteophyte complex, most pronounced centrally with mild to moderate facet arthrosis. Mild central canal stenosis with AP dimension of the thecal sac measuring 9 mm. The right neural foramen is patent. Mild left neural foraminal narrowing. C6-C7: Moderate disc space narrowing with posterior disc osteophyte complex and mild to moderate facet arthrosis. Patent central canal and neural foramen. C7-T1: Mild facet arthrosis. No central canal or foraminal narrowing. IMPRESSION: 1. Motion degraded exam. 2. Large posterior disc osteophyte complex at C4-C5 with caudal extension contributes to cause mild central canal stenosis with severe left lateral recess and moderate to severe left foraminal narrowing. 3. Mild central canal stenosis is also present C5-C6. 4. No significant marrow edema or abnormal enhancement. ACT 112: Negative or not required by law. The above report was generated using voice recognition software. It may contain grammatical, syntax or spelling errors. Electronically signed by: Domenic Thomas M.D. 07/12/2025 10:37 AM Medications Administered Piperacillin Sod/Tazobactam Sod (Zosyn) 4.5 gm in 100 mls @ 25 mls/hr IV Q8H GOLD; Protocol Stop: 07/14/25 12:59 Last Admin: 07/12/25 13:26 Dose: 25 mls/hr Documented By: MMF Sodium Chloride (Nss) 1,000 mls @ 125 mls/hr IV .Q8H GOLD Stop: 07/13/25 07:00 Last Admin: 07/12/25 13:26 Dose: 125 mls/hr Documented By: MMF Discontinued Medications Dexamethasone Sodium Phosphate (DexamethasonePf 10 Mg/Ml Vial) 10 mg IV NOW ONE Stop: 07/12/25 02:54 Last Admin: 07/12/25 03:02 Dose: 10 mg Documented By: LONNY Gadobutrol (Gadobutrol 65ml Vial) 9.5 ml IV ONCE ONE Stop: 07/12/25 10:00 Last Admin: 07/12/25 10:00 Dose: 9.5 ml Documented By: RIAZ Acetaminophen (Ofirmev) 1,000 mg in 100 mls @ 400 mls/hr IV NOW STA Stop: 07/12/25 03:07 Last Infusion: 07/12/25 03:24 Dose: Infused Documented By: Admin: 07/12/25 03:02 Dose: 400 mls/hr Documented By: LONNY Vancomycin HCl 2,000 mg/ (Sodium Chloride) 540 mls @ 200 mls/hr IV NOW ONE Stop: 07/12/25 07:01 Last Infusion: 07/12/25 08:20 Dose: Infused Documented By: Admin: 07/12/25 05:03 Dose: 200 mls/hr Documented By: LONNY Piperacillin Sod/Tazobactam Sod (Zosyn) 4.5 gm in 100 mls @ 200 mls/hr IV NOW ONE; Protocol Stop: 07/12/25 04:49 Last Infusion: 07/12/25 05:00 Dose: Infused Documented By: Admin: 07/12/25 04:27 Dose: 200 mls/hr Documented By: LONNY Sodium Chloride (Nss) 1,000 mls @ 999 mls/hr IV .Q1H1M GOLD Stop: 07/12/25 06:30 Last Infusion: 07/12/25 06:07 Dose: Infused Documented By: Admin: 07/12/25 05:05 Dose: 999 mls/hr Documented By: Infusion: 07/12/25 05:05 Dose: Infused Documented By: Admin: 07/12/25 04:26 Dose: 999 mls/hr Documented By: LONNY Lactated Ringer's (Lr) 1,000 mls @ 125 mls/hr IV .Q8H GOLD Stop: 07/13/25 07:00 Last Admin: 07/12/25 13:25 Dose: Not Given Documented By: VICENTA Ioversol (Optiray 320 125ml) 125 ml IV ONCE ONE Stop: 07/12/25 04:19 Last Admin: 07/12/25 04:19 Dose: 118 ml Documented By: HARIKA Code Status & VTE Plan Code Status FULL CODE - As per direct discussion with the patient at bedside in the ED. Supervising Physician Co-Signing Physician Notes Patient seen and examined at bedside. Patient doing ok today. Has had cough for past few days, no SOB or chest pain. Recent yellow thick discharge from colectomy site, new past few days. Shooting pain down left arm is reason for presentation, started unprovoked this clinical consultant. On exam, purulent yellow drainage from top wound site on abdomen, RUQ tenderness to palpation otherwise benign ab exam, trace rhonchi in bilateral lobes worse in RLL, provoked pain with left shoulder movement. Cervical spine MR revealing left C4-C5 cervical stenosis correlating with exam. CTA PE revealing bilateral lower lobe infiltrates. CT abdomen/pelvis with inflammation and edema around wound site and post surgical changes. Complex case. Patient presenting with severe cervical spinal stenosis, per ortho not surgical candidate at this time. Reason for admission is severe sepsis 2/2 HAP and r/o deep tissue post surgical infection, as suggested by yellow purulent drainage from wound site and bilateral lower lobe infiltrates with cough. Treat empirically with vanc/zosyn, check MRSA swab (for HAP, not soft tissue infection) and sputum culture, blood cultures x2, received 2 L of fluids in ED start maintenance fluids until tomorrow. Incentive spirometer, flutter valve ordered. General surgery consult for wound infection, appreciate recs. Wound care consult ordered, appreciate recs. Ortho consult, appreciate recs, steroids per ortho consult service. Mild KEEGAN noted, recheck BMP in AM. I have seen and discussed the case with the collaborating advanced practitioner. I agree with the above H&P. I have reviewed and confirmed the patients medical history, the findings on physical examination, and the patients diagnosis and treatment plan with Neville BAZAN and agree with the information documented. I spent a total of 50 minutes coordinating, documenting, and providing care for this patient excluding time spent in the performance of separately billed services. All of the aforementioned completed outside of collaborating with the assigned advanced practitioner for a full treatment plan. I have reviewed the advanced practitioner's documentation, and I agree with, and take responsibility for the plan of care (2) Pneumonia of both lower lobes Pneumonia type: due to unspecified organism Qualified Code(s): J18.9 - Pneumonia, unspecified organism
--- NOTE | 2025-07-12 12:23 | Orthopedic Consultation ---
Date of Service July 12, 2025 Assessment & Plan (1) Cervical disc herniation: * Case/imaging reviewed and discussed with Dr Murrieta * C4-5 disc herniation with stenosis contributing to her left arm symptoms * Recommend conservative management with medication and activity modification * Urgent surgical intervention not indicated at this time, especially in light of recent bowel surgery. However discussed that it is possible she will need a procedure in the future if she does not experience improvement through conservative means * Recommend IV steroid (pending infectious workup), NSAID/Toradol * Activity as tolerated * Disposition: TBD * Remainder care per primary team * Will continue to follow History of Present Illness Reason for Consultation: Neck and left arm radicular pain Requesting Physician: . . Patient is a 59y/o female with neck and left arm radicular pain. PMH including aortic dissection, HIV, CKD3, anxiety. Recent colectomy with reanastomosis approximately 2 weeks ago at [facility]. Presents to hospital with sudden onset neck and left arm pain. Per patient she was sitting watching TV last night when she developed sudden pain at the base of the neck that radiated down the arm with numbness of her fingers. Presents to ED for evaluation. Current workup including CT and MRI cervical spine demonstrating C4-5 disc herniation with sten osis. Also of note is elevated WBC of 30, empiric antibiotics started in ED. Admitted to hospital medicine team for further workup and treatment. Orthopedics consulted for management recommendations. At time of exam patient lying comfortably in bed, no acute distress. Endorses moderate constant pain of the neck and left arm with persistent numbness into her fingers. 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 Otherwise denies chest pain, shortness of breath, fever, chills. Allergies Allergy/AdvReac Type Severity Reaction Status Date / Time levofloxacin AdvReac Intermediate Nausea/Vomiting Verified 06/08/25 13:47 "extreme" Home Medications Medication Instructions Recorded Confirmed Type bupropion HCl 200 mg tablet,12 hr 200 mg PO QAM 09/23/19 07/12/25 History sustained-release (Wellbutrin SR) gabapentin 300 mg capsule 300 mg PO QAM 09/23/19 07/12/25 History albuterol sulfate 90 mcg/actuation 2 puffs inhalation Q6H PRN 04/18/20 07/12/25 History aerosol inhaler (Ventolin HFA) Shortness Of Breath Or Wheezing mirtazapine 15 mg tablet 15 mg PO HS 06/12/20 07/12/25 History alendronate 70 mg tablet 70 mg PO WK 06/08/25 07/12/25 History bictegravir 50 mg-emtricitabine 1 tab PO QAM 06/08/25 07/12/25 History 200 mg-tenofovir alafenam 25 mg tablet (Biktarvy) clopidogrel 75 mg tablet 75 mg PO QPM 06/08/25 07/12/25 History empagliflozin 10 mg tablet 10 mg PO QAM 06/08/25 07/12/25 History (Jardiance) escitalopram oxalate 20 mg tablet 20 mg PO QAM 06/08/25 07/12/25 History fluticasone propionate 220 2 puff inhalation BID 06/08/25 07/12/25 History mcg/actuation HFA aerosol inhaler gabapentin 600 mg tablet 600 - 1,200 mg PO TID 06/08/25 07/12/25 History insulin aspart U-100 100 unit/mL 1 sliding scale dose subcut TID 06/08/25 07/12/25 History (3 mL) subcutaneous pen (Novolog FlexPen U-100 Insulin aspart) insulin glargine 100 unit/mL (3 28 unit subcut HS 06/08/25 07/12/25 History mL) subcutaneous pen (Lantus Solostar U-100 Insulin) levocetirizine 5 mg tablet 2.5 mg PO QPM 06/08/25 07/12/25 History montelukast 10 mg tablet 10 mg PO HS 06/08/25 07/12/25 History pantoprazole 20 mg tablet,delayed 20 mg PO QAM 06/08/25 07/12/25 History release prazosin 1 mg capsule 1 mg PO HS 06/08/25 07/12/25 History rivaroxaban 20 mg tablet (Xarelto) 20 mg PO HS 06/08/25 07/12/25 History rosuvastatin 10 mg tablet 10 mg PO HS 06/08/25 07/12/25 History acetaminophen 325 mg tablet 325 mg PO Q6 07/12/25 07/12/25 History meclizine 25 mg tablet 25 mg PO TID PRN Nausea And 07/12/25 07/12/25 History Vomiting ondansetron 4 mg disintegrating 4 mg PO Q8 PRN Nausea And Vomiting 07/12/25 07/12/25 History tablet oxycodone 10 mg tablet 10 mg PO Q8 07/12/25 07/12/25 History Past Med/Surg History Problem List (Updated 07/12/25 @ 12:21 by Jann Elmore PA-C) Cervical disc herniation Pulmonary nodule less than 6 mm in diameter with high risk for malignant neoplasm Colonic mass Acute blood loss anemia Abnormal CT scan, colon History of aortic dissection HIV (human immunodeficiency virus infection) Abnormal computed tomography angiography (CTA) of abdomen and pelvis Anemia (Acute) Encounter for pre-operative examination Acute renal failure (Acute) HIV (human immunodeficiency virus infection) (Acute) Hypokalemia (Acute) Osteoarthritis of right knee Overdose (Acute) Sepsis (Acute) Situational depression (Acute) Urinary tract infection (Acute) PTSD (post-traumatic stress disorder) Human immunodeficiency virus (HIV) seropositivity (Chronic 11/21/12) DR. MULTANI ([facility]) FOLLOWS PATIENT Medical History (Updated 07/12/25 @ 12:21 by Jann Elmore PA-C) Degenerative disc disease Osteoarthritis Chronic kidney disease STAGE 3 "COUNTS ARE IMPROVING" GERD (gastroesophageal reflux disease) History of cancer of vagina S/P surgical intervention and chemotherapy Anxiety and depression Asthma LAST USED RESCUE INHALER 2 MONTHS AGO Surgical History History of hysterectomy History of total knee replacement RT History of colonoscopy History of tooth extraction History of tonsillectomy and adenoidectomy History of myringotomy Family History Mother Family history of diabetes mellitus Father Family history of diabetes mellitus Grandfather (Maternal) Family history of diabetes mellitus Grandmother (Maternal) Family history of diabetes mellitus Social History Smoking Status: Former smoker Tobacco Type: Cigarettes Cigarettes Per Day: 1 pack a week; Second Hand Exposure: Yes; Do You Dip or Chew Tobacco: No; Hx Alcohol Use: No Hx Substance Use: No Preferred Language: Lao Communication Ability: Effective 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 Physical Exam . * General: Alert and oriented, no acute distress * Constitutional: well-developed, well-nourished. * Respiratory: Normal respiratory effort, no distress * Gastrointestinal: No tenderness to palpation, no rigidity or guarding. * Skin: No rash or lesion. * Neurologic: Grossly normal * Musculoskeletal: Cervical spine with no obvious deformity, or overlying skin abnormality. TTP diffusely midline cervical region and paraspinals, otherwise no specific tenderness of the shoulder, upper arm, forearm, wrist/hand. AROM shoulder shrug, shoulder abduction, elbow flexion/extension, wrist flexion/extension intact. Strength 5/5 shoulder shrug, shoulder abduction, elbow flexion, elbow extension, wrist extension. 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 Sensation intact radial/median/ulnar nerve restitution to light touch, subjectively diminished per patient. Results & Data Results & Data Laboratory Results . 07/12/25 03:44 Aerobic Blood Culture - Pending Blood Anaerobic Blood Culture - Pending 07/12/25 03:26 Aerobic Blood Culture - Pending Blood Anaerobic Blood Culture - Pending 07/12/25 07/12/25 07/12/25 05:48 03:26 03:01 WBC 29.96 H RBC 5.39 Hgb 11.0 L Hct 40.6 MCV 75.3 L MCH 20.4 L MCHC 27.1 L RDW Std Deviation 54.4 H RDW Coeff of Ranjit 21.3 H Plt Count 566 H MPV 10.5 Immature Gran % (Auto) 0.7 Neut % (Auto) 86.7 Lymph % (Auto) 6.4 [place] % (Auto) 4.8 Eos % (Auto) 0.9 Baso % (Auto) 0.5 Neut # (Auto) 26.00 H Lymph # (Auto) 1.92 [place] # (Auto) 1.44 H Eos # (Auto) 0.26 Baso # (Auto) 0.14 Immature Gran # (Auto) 0.20 Toxic Vacuolation 1+ Polychromasia 2+ Anisocytosis Present Tear Drop Cells 1+ Ovalocytes 1+ Sodium 138 Potassium 3.7 Chloride 108 H Carbon Dioxide 19 L Anion Gap 11 BUN 9 Creatinine 1.12 Est Cr Clr Drug Dosing 59.2 eGFR 55.95 BUN/Creatinine Ratio 8.0 L Glucose 231 H Lactate 2.1 H* 2.9 H* Calcium 9.3 Total Bilirubin 0.7 AST 27 ALT 19 Alkaline Phosphatase 59 Troponin I High Sens 4.6 Total Protein 7.3 Albumin 3.9 Globulin 3.4 Albumin/Globulin Ratio 1.1 Lipase 37 Diagnostic Findings . Cervical Spine CT 07/12/25 02:53 EXAM: CT cervical spine wo con CLINICAL HISTORY: Atypical neuro symptoms. TECHNIQUE: CT scan of the cervical spine was performed without the administration of intravenous contrast. Contiguous axial images were obtained from the skull base to the upper thoracic spine. Coronal and sagittal reformatted images were also reviewed. One of the following dose reduction techniques was utilized for this exam. Automated exposure control, adjustment of the mA and/or kV according to patient size, and use of iterative reconstruction. COMPARISON: None. FINDINGS: Vertebrae: No evidence of acute fracture or dislocation. Diffuse osteopenic changes noted. Grade I minimal retrolisthesis of C4 vertebral body. Multilevel anterior and posterior osteophytes with uncovertebral hypertrophy noted. Atlantoaxial osteoarthritic changes. Intervertebral Discs: Moderate to severe reduction of C4-C5 to C6-C7 intervertebral disc spaces with associated posterior disc osteophyte complexes. Large left-sided posterior disc osteophyte complexes at C4-C5 and C5-C6 levels causing moderate spinal canal stenosis and severe stenosis of left lateral recesses, compressing ipsilateral traversing nerve roots. Severe neural foraminal narrowing at C4-C5 level on left side, accentuated by facetal arthropathy, compressing exiting nerve root. Moderate neural foraminal narrowing at C5-C6 level on left side, accentuated by facetal arthropathy, impinging/mildly compressing exiting nerve root. Facet Joints: Severe degenerative changes. Prevertebral Soft Tissues: The prevertebral soft tissues are normal in thickness without evidence of mass or abnormal fluid collection. IMPRESSION: 1. Advanced cervical spondylodegenerative changes as described above. 2. Large left-sided posterior disc osteophyte complexes at C4-C5 and C5-C6 levels causing moderate spinal canal stenosis and severe stenosis of left lateral recesses, compressing ipsilateral traversing nerve roots. Recommended MRI for better evaluation if clinically warranted. 3. Severe neural foraminal narrowing at C4-C5 level on left side, accentuated by facetal arthropathy, compressing exiting nerve root. 4. Rest of the findings as described above. Electronically signed by Nacho Falcon 07-12-2025 04:20 AM Chest X-Ray 07/12/25 02:53 EXAM: XR chest 1V portable CLINICAL HISTORY: Chest pain, nonspecific TECHNIQUE: An X-ray image of the chest is obtained in AP projection. COMPARISON: CT chest done in 06/10/2025. FINDINGS: Pulmonary Parenchyma: Haziness is seen in the left lower zone. Obliteration of the left costophrenic angle noted. [id number] lower zonal /OBX.5.1.1OBX.5.1.2 right upper zonal faint atelectasis (stable)./OBX.5.1.2/OBX.5.1 Heart and Mediastinum: Enlarged heart size (likley projectional). No mediastinal widening or masses. No hilar or mediastinal lymphadenopathy. Bony Thorax: Bony thorax appears intact without fractures or deformities. Soft Tissues: Soft tissues overlying the chest wall are unremarkable. IMPRESSION: Imaging findings are likely due to mild left sided pleural effusion with underlying consolidation/collapse, would recommend clinical lab correlation and further workup. Interval new. Electronically signed by Nacho Falcon 07-12-2025 04:[address] 07/12/25 02:53 EXAM: CT head/brain wo con CLINICAL HISTORY: Atypical neuro symptoms, left arm numbness, and pain. TECHNIQUE: Axial non-contrast CT scan of the brain was performed from the skull base to the high parietal region. One of the following dose reduction techniques were utilized for this exam: Automated exposure control, adjustment of the mA and/or kV according to patient size, use of iterative reconstruction. CTDI: 79.29mGy , DLP: 1409.53 mGy.cm COMPARISON: None. FINDINGS: Brain Parenchyma: Normal attenuation of the cerebral hemispheres, cerebellum, and brainstem. No evidence of acute infarct, hemorrhage, or mass effect. No abnormal areas of hypo- or hyperattenuation. Ventricular System: Ventricles are normal in size and configuration. No evidence of hydrocephalus or ventricular enlargement. Subarachnoid Spaces: Normal sulci and cisterns. No evidence of subarachnoid hemorrhage or extra-axial fluid collections. Cerebellum and Brainstem: No masses, lesions, or areas of abnormal density. Orbits: Normal appearance of the globes, optic nerves, and extraocular muscles. No evidence of orbital masses or abnormal density. 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 Clear other paranasal sinuses. No evidence of sinusitis or mucosal thickening. Mastoid Air Cells: Clear mastoid air cells. No evidence of mastoiditis. Skull: Normal skull morphology. IMPRESSION: 1. No evidence of established territorial ischemic infarction or hemorrhage. 2. If clinically indicated, MRI DWI is the modality of choice to rule out acute ischemic infarction. Electronically signed by Nacho Falcon 07-12-2025 03:52 AM Shoulder X-Ray 07/12/25 02:53 EXAM: XR shoulder LT min 2V routine CLINICAL HISTORY: left arm pain TECHNIQUE: X-ray images of the left shoulder were obtained in anteroposterior (AP) and Y-view projections. COMPARISON: No prior studies available for comparison. FINDINGS: Bone Structure: A faint irregular lucent line seen through the left glenoid, of query clinical significance, for further assessment by CT if clinically indicated. Otherwise: Bone structure is normal and aligned. No evidence of dislocation. The humeral head is properly positioned in the glenoid fossa. No osseous lesions or abnormalities identified. Joint Spaces: Glenohumeral joint spaces are normal. No evidence of joint effusion or subluxation. Soft Tissues: Soft tissues appear normal and unremarkable. No soft tissue swelling, calcifications, or foreign bodies noted. IMPRESSION: 1. A faint irregular lucent line seen through the left glenoid could be due to overlapping structures or a nondisplaced fracture, of query clinical significance, for further assessment by CT if clinically indicated. Disclaimer: A subtle bone abnormality or fracture may not be readily apparent on X-rays, thus clinical correlation and further imaging including follow-up CT, MRI, or follow-up X-rays are advised as needed. Electronically signed by Nacho Falcon 07-12-2025 04:43 AM Abdomen/Pelvis CT 07/12/25 03:18 EXAM: CT abd pelvis IV con only CLINICAL HISTORY: 30k wbc, recent surg TECHNIQUE: Contiguous axial images were obtained from the level of the diaphragm to the pubic symphysis with intravenous contrast. Coronal and sagittal reconstructions were likewise performed and indicated to increase the sensitivity for detecting clinically relevant pathology. If IV contrast material had not been administered, the likelihood of detecting abnormalities relevant to the patient's condition would have been substantially decreased. CT scan was performed according to ALARA (as low as reasonable achievable). COMPARISON: None. FINDINGS: The visualized lung bases are clear. The liver is normal in size and attenuation. No focal liver lesions are seen. There is no intra or extrahepatic biliary ductal dilatation. Hepatic vasculature is patent. The gallbladder is surgically removed. The pancreas, and adrenal glands are unremarkable. Spleen appears enlarged in size measuring about 15 cm. Evidence of patchy hypodense lesions are noted involving splenic parenchyma- possibility of splenic infarct. The kidneys are normal in size and attenuation. There is no hydronephrosis or perinephric fat stranding. No renal calculi or renal masses are identified. The ureters are normal in caliber and no ureteral calculi are seen. The bladder is normal in contour. Pelvic viscera are unremarkable. Right hemicolectomy status. The anastomosis site shows mild inflammatory changes. Mild mucosal thickening is noted involving sigmoid colon- ould be transient due to collapse bowel loop. Mild edematous left rectus abdominis muscle muscle and adjacent omentum in left lower quadrant- sequelae of recent intervention, likely. Minimal interbowel free fluid noted in pelvis No focal or diffuse bowel wall thickening or evidence of bowel obstruction is identified. Abdominal and pelvic vasculature is patent. No adenopathy or fluid collections are seen. No aggressive appearing osseous lesions are identified. IMPRESSION: 1. Right hemicolectomy status. The anastomosis site shows mild inflammatory changes. 2. Mild mucosal thickening is noted involving sigmoid colon- could be transient due to a collapsed bowel loop. 3. Minimal interbowel free fluid noted in pelvis 4. 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 5. Mild edematous left rectus abdominis muscle muscle and adjacent omentum in left lower quadrant- sequelae of recent intervention, likely. Electronically signed by Demarco Hernandez 07-12-2025 05:28 AM Chest CTA 07/12/25 03:18 EXAM: CT angio chest PE protocol CLINICAL HISTORY: PE TECHNIQUE: Contiguous axial images were obtained from the neck base through the upper abdomen following intravenous administration of iodinated contrast material. Angiographic images were processed, 3D MIP images were acquired for interpretation. If IV contrast material had not been administered, the likelihood of detecting abnormalities relevant to the patient's condition would have been substantially decreased. Coronal and sagittal 3-D MIPs were likewise performed and indicated to increase the sensitivity of detectin diffuse clinically relevant pathology. CT scan was performed according to ALARA (as low as reasonable achievable). COMPARISON: 12:36:00 GLASS BLOWER FINDINGS: Multiple atelectatic bands with vascular crowding are noted involving bilateral lower lobes Adequate contrast bolus without evidence of pulmonary embolism. The central airways are patent. Rest of lungs are clear. No pleural effusion. The heart, aorta, and pulmonary arteries are of normal size and configuration. There are no appreciable coronary artery and aortic atherosclerotic calcifications. No pericardial effusion is identified. The thyroid is unremarkable. No mediastinal, hilar, or axillary lymphadenopathy is noted. No suspicious lytic or sclerotic osseous lesions are identified. IMPRESSION: No evidence of pulmonary embolism. Multiple atelectatic bands with vascular crowding are noted involving bilateral lower lobes- sequelae of infection.-new finding. No other new interval abnormality since prior study. Electronically signed by Demarco Hernandez 07-12-2025 05:24 AM Cervical Spine MRI 07/12/25 06:05 MR cervical spine wo/w con HISTORY: 59 years-old Female L arm pain, abnormal CT. Eval for infx vs other. Acute neck pain with left upper extremity radicular symptoms COMPARISON: CT cervical spine 07/12/2025 TECHNIQUE: Multiplanar multisequence MRI cervical spine was obtained with and without IV contrast FINDINGS: Mild levoscoliosis of the upper thoracic spine. The study is motion degraded. The imaged posterior fossa structures appear unremarkable. There is normal signal within the brainstem, cervical and imaged upper thoracic spinal cord. No acute fracture, subluxation, endplate erosion, significant marrow edema or marrow replacing process. No epidural or paraspinal fluid collections. No a bnormal enhancement identified. C2-C3: Mild intervertebral disc space narrowing and uncovertebral hypertrophy with moderate facet arthrosis. No central canal or neural foraminal narrowing. C3-C4: 3 mm anterolisthesis, likely secondary to chronic moderate facet arthrosis. Mild intervertebral disc space narrowing with uncovertebral hypertrophy and small circumferential annular disc bulge. No central canal or neural foraminal narrowing. C4-C5: Mild to moderate intervertebral disc space narrowing with 1.4 x 0.7 x 0.9 cm disc osteophyte complex (image 12 series 4 and image 19 series 6) which is nearly completely ossified on the comparison CT. Mild central canal stenosis with AP dimension of the thecal sac measuring 9 mm. Severe left lateral recess narrowing with moderate to severe left foraminal narrowing. The right neural foramen is patent. C5-C6: Mild to moderate intervertebral disc space narrowing. Circumferential disc osteophyte complex, most pronounced centrally with mild to moderate facet arthrosis. Mild central canal stenosis with AP dimension of the thecal sac measuring 9 mm. The right neural foramen is patent. Mild left neural foraminal narrowing. C6-C7: Moderate disc space narrowing with posterior disc osteophyte complex and mild to moderate facet arthrosis. Patent central canal and neural foramen. C7-T1: Mild facet arthrosis. No central canal or foraminal narrowing. IMPRESSION: 1. Motion degraded exam. 2. Large posterior disc osteophyte complex at C4-C5 with caudal extension contributes to cause mild central canal stenosis with severe left lateral recess and moderate to severe left foraminal narrowing. 3. Mild central canal stenosis is also present C5-C6. 4. No significant marrow edema or abnormal enhancement. ACT 112: Negative or not required by law. The above report was generated using voice recognition software. It may contain grammatical, syntax or spelling errors. Electronically signed by: Domenic Thomas M.D. 07/12/2025 10:37 AM PG Care Time/CCT Total # of Minutes Spent Total Time Spent with Patient: Total time spent is greater than 50% in coordination of care (as documented) at patient's floor/unit and/or counseling patient: [place] [address] IN/OBS CONSULT LVL 4,60M Patient Type New History Problem Focused Exam Problem Focused Medical Decision Making Moderate Complexity Diagnoses Cervical disc herniation M50.20
--- NOTE | 2025-07-12 13:23 | Electrocardiogram Report ---
Test Reason : Blood Pressure : */* mmHG Vent. Rate : 115 BPM Atrial Rate : 115 BPM P-R Int : 138 ms QRS Dur : 88 ms QT Int : 368 ms P-R-T Axes : 18 -49 27 degrees QTcB Int : 509 ms Sinus tachycardia Left axis deviation Inferior infarct (cited on or before 12-Jun-2020) Anterolateral infarct (cited on or before 08-Jun-2025) Abnormal ECG When compared with ECG of 08-Jun-2025 10:53, QRS axis Shifted left Questionable change in initial forces of Anterolateral leads Confirmed by Be Riggins ([id number]) on 07/12/2025 1:23:19 PM Referred By: REFERRED SELF Confirmed By: Be Riggins
[2025-07-12] MEDS: LACTATED RINGER'S 1,000 ML IV SCH (13:25)
[2025-07-12] MEDS: PIPERACILLIN/TAZOBACTAM 4.5 GM/100 ML BAG IV SCH (13:26)
[2025-07-12] MEDS ORDERED: DEXTROSE 50% 50 ML SYRINGE IV PRN (13:28)
[2025-07-12] MEDS ORDERED: GLUCOSE 40% GEL 15 GM TUBE PO PRN (13:28)
[2025-07-12] MEDS ORDERED: GLUCOSE 10 TAB/TUBE PO PRN (13:28)
[2025-07-12] MEDS ORDERED: CARBOHYDRATES FOR HYPOGLYCEMIA PO PRN (13:28)
[2025-07-12] MEDS ORDERED: PHARMACY GLYCEMIC MGMT CONSULT PRN (13:28)
[2025-07-12] MEDS ORDERED: GLUCAGON FOR INJ 1 MG VIAL SQ PRN (13:28)
--- NOTE | 2025-07-12 15:08 | Surgery Consultation ---
Date of Consultation July 12, 2025 Assessment & Plan (1) S/P laparoscopic right hemicolectomy: Incision with some superficial fat and skin necrosis in the superior lateral portion, no evidence of infection. There is no deep space infection. Otherwise doing well from her right hemicolectomy. Local wound care, keep dressing over incision can change daily. No indication for antibiotics for the surgical site. Low fiber diet as tolerated Surgery will sign off, call with questions or concerns (2) Hospital-acquired pneumonia: (3) HIV (human immunodeficiency virus infection): History of Present Illness Reason for Consultation: Possible surgical site infection History of Present Illness 59-year-old female 2 weeks status post partial colectomy at [facility] who presented to the emergency department with chief complaint of neck pain. From a surgical standpoint she seems to be doing well. She is tolerating a diet having bowel movements. She was noted to have a white blood cell count of 29,[address] scan revealed a hospital-acquired pneumonia in the bilateral lower lobes. CT of the abdomen was unremarkable. During evaluation by the hospitalist there was concern for possible superficial surgical site infection. She notes that it been healing well but when he pulled the dressing off there was some yellow drainage. Otherwise no issues in the site. She does take Plavix. Insulin-dependent diabetes. Allergies Allergy/AdvReac Type Severity Reaction Status Date / Time levofloxacin AdvReac Intermediate Nausea/Vomiting Verified 06/08/25 13:47 "extreme" Home Medications Medication Instructions Recorded Confirmed Type bupropion HCl 200 mg tablet,12 hr 200 mg PO QAM 09/23/19 07/12/25 History sustained-release (Wellbutrin SR) gabapentin 300 mg capsule 300 mg PO QAM 09/23/19 07/12/25 History albuterol sulfate 90 mcg/actuation 2 puffs inhalation Q6H PRN 04/18/20 07/12/25 History aerosol inhaler (Ventolin HFA) Shortness Of Breath Or Wheezing mirtazapine 15 mg tablet 15 mg PO HS 06/12/20 07/12/25 History alendronate 70 mg tablet 70 mg PO WK 06/08/25 07/12/25 History bictegravir 50 mg-emtricitabine 1 tab PO QAM 06/08/25 07/12/25 History 200 mg-tenofovir alafenam 25 mg tablet (Biktarvy) clopidogrel 75 mg tablet 75 mg PO QPM 06/08/25 07/12/25 History empagliflozin 10 mg tablet 10 mg PO QAM 06/08/25 07/12/25 History (Jardiance) escitalopram oxalate 20 mg tablet 20 mg PO QAM 06/08/25 07/12/25 History fluticasone propionate 220 2 puff inhalation BID 06/08/25 07/12/25 History mcg/actuation HFA aerosol inhaler gabapentin 600 mg tablet 600 - 1,200 mg PO TID 06/08/25 07/12/25 History insulin aspart U-100 100 unit/mL 1 sliding scale dose subcut TID 06/08/25 07/12/25 History (3 mL) subcutaneous pen (Novolog FlexPen U-100 Insulin aspart) insulin glargine 100 unit/mL (3 28 unit subcut HS 06/08/25 07/12/25 History mL) subcutaneous pen (Lantus Solostar U-100 Insulin) levocetirizine 5 mg tablet 2.5 mg PO QPM 06/08/25 07/12/25 History montelukast 10 mg tablet 10 mg PO HS 06/08/25 07/12/25 History pantoprazole 20 mg tablet,delayed 20 mg PO QAM 06/08/25 07/12/25 History release prazosin 1 mg capsule 1 mg PO HS 06/08/25 07/12/25 History rivaroxaban 20 mg tablet (Xarelto) 20 mg PO HS 06/08/25 07/12/25 History rosuvastatin 10 mg tablet 10 mg PO HS 06/08/25 07/12/25 History acetaminophen 325 mg tablet 325 mg PO Q6 07/12/25 07/12/25 History meclizine 25 mg tablet 25 mg PO TID PRN Nausea And 07/12/25 07/12/25 History Vomiting ondansetron 4 mg disintegrating 4 mg PO Q8 PRN Nausea And Vomiting 07/12/25 07/12/25 History tablet oxycodone 10 mg tablet 10 mg PO Q8 07/12/25 07/12/25 History Patient History Medical History (Updated 07/12/25 @ 15:07 by Darrius Bey DO, FACS) Degenerative disc disease Osteoarthritis Chronic kidney disease STAGE 3 "COUNTS ARE IMPROVING" GERD (gastroesophageal reflux disease) History of cancer of vagina S/P surgical intervention and chemotherapy Anxiety and depression Asthma LAST USED RESCUE INHALER 2 MONTHS AGO Surgical History (Updated 07/12/25 @ 13:58 by Cristy Lozada PA-C) History of hysterectomy History of total knee replacement RT History of colonoscopy History of tooth extraction History of tonsillectomy and adenoidectomy History of myringotomy Family History Mother Family history of diabetes mellitus Father Family history of diabetes mellitus Grandfather (Maternal) Family history of diabetes mellitus Grandmother (Maternal) Family history of diabetes mellitus Social History Smoking Status: Former smoker Tobacco Type: Cigarettes Cigarettes Per Day: 1 pack a week; Second Hand Exposure: Yes; Do You Dip or Chew Tobacco: No; Hx Alcohol Use: No Hx Substance Use: No Preferred Language: Lithuanian Communication Ability: Effective Scullion Chief Required: No Beliefs That Will Affect Care: None Current Living Situation: Alone Feels Safe at Home: Yes Assistive Devices: None Review of Systems Review of Systems: All systems reviewed & are unremarkable except as noted in HPI & below Physical Exam Constitutional: WD/WN, vitals as above + obese Respiratory: normal respiratory effort, lungs clear to auscultation Cardiovascular: RRR, no murmur, no edema Gastrointestinal (Abdomen): normal bowel sounds, soft, nontender, no hepatosplenomegaly Inspection/Auscultation: + abdominal surgical incision Upper midline extraction site incision with small area of superficial necrosis on the superior lateral portion, no evidence of drainage or significant infection. The Dermabond was removed. Results & Data Vital Signs (Past 12 Hours) Vital Signs Pulse Pulse Resp BP BP Pulse Ox O2 Del Method 07/12/25 14:00 108 H 21 129/78 95 Nasal Cannula 07/12/25 12:00 113 H 17 143/71 H 96 Room Air 07/12/25 11:40 109 H 22 139/77 95 Nasal Cannula 07/12/25 10:00 111 H 16 137/77 95 Nasal Cannula 07/12/25 06:58 100 H 07/12/25 06:03 95 H 20 118/71 94 07/12/25 05:00 102 H 20 117/57 L 95 Room Air 07/12/25 04:30 106 H 22 127/57 L 94 Room Air 07/12/25 04:06 114 H 22 129/63 94 Room Air O2 Flow Rate 07/12/25 14:00 2 07/12/25 12:00 07/12/25 11:40 2 07/12/25 10:00 2 07/12/25 06:58 07/12/25 06:03 07/12/25 05:00 07/12/25 04:30 07/12/25 04:06 Laboratory Results Laboratory Results - last 24 hr 07/12/25 07/12/25 07/12/25 03:01 03:26 05:48 WBC 29.96 H RBC 5.39 Hgb 11.0 L Hct 40.6 MCV 75.3 L MCH 20.4 L MCHC 27.1 L RDW Std Deviation 54.4 H RDW Coeff of Ranjit 21.3 H Plt Count 566 H MPV 10.5 Immature Gran % (Auto) 0.7 Neut % (Auto) 86.7 Lymph % (Auto) 6.4 [place] % (Auto) 4.8 Eos % (Auto) 0.9 Baso % (Auto) 0.5 Neut # (Auto) 26.00 H Lymph # (Auto) 1.92 [place] # (Auto) 1.44 H Eos # (Auto) 0.26 Baso # (Auto) 0.14 Immature Gran # (Auto) 0.20 Toxic Vacuolation 1+ Polychromasia 2+ Anisocytosis Present Tear Drop Cells 1+ Ovalocytes 1+ Sodium 138 Potassium 3.7 Chloride 108 H Carbon Dioxide 19 L Anion Gap 11 BUN 9 Creatinine 1.12 Est Cr Clr Drug Dosing 59.2 eGFR 55.95 BUN/Creatinine Ratio 8.0 L Glucose 231 H Lactate 2.9 H* 2.1 H* Calcium 9.3 Total Bilirubin 0.7 AST 27 ALT 19 Alkaline Phosphatase 59 Troponin I High Sens 4.6 Total Protein 7.3 Albumin 3.9 Globulin 3.4 Albumin/Globulin Ratio 1.1 Lipase 37 Procalcitonin 0.23 Nasal Screen MRSA (PCR) Adenovirus (PCR) B. pertussis DNA (PCR) B.parapertussis DNA PCR C. pneumoniae DNA (PCR) Coronavirus OC43 (PCR) Coronavirus HKU1 (PCR) Coronavirus 229E (PCR) SARS-CoV-2 (PCR) Coronavirus NL63 (PCR) Human Metapneumovir PCR Influenza Type B (PCR) M. pneumoniae (PCR) Parainfluenza 1 (PCR) Parainfluenza 2 (PCR) Parainfluenza 3 (PCR) Parainfluenza 4 (PCR) RSV (PCR) Entero/Rhino (PCR) 07/12/25 07/12/25 14:35 14:52 WBC RBC Hgb Hct MCV MCH MCHC RDW Std Deviation RDW Coeff of Ranjit Plt Count MPV Immature Gran % (Auto) Neut % (Auto) Lymph % (Auto) [place] % (Auto) Eos % (Auto) Baso % (Auto) Neut # (Auto) Lymph # (Auto) [place] # (Auto) Eos # (Auto) Baso # (Auto) Immature Gran # (Auto) Toxic Vacuolation Polychromasia Anisocytosis Tear Drop Cells Ovalocytes Sodium Potassium Chloride Carbon Dioxide Anion Gap BUN Creatinine Est Cr Clr Drug Dosing eGFR BUN/Creatinine Ratio Glucose Lactate Pending Calcium Total Bilirubin AST ALT Alkaline Phosphatase Troponin I High Sens Total Protein Albumin Globulin Albumin/Globulin Ratio Lipase Procalcitonin Nasal Screen MRSA (PCR) Pending Adenovirus (PCR) Pending B. pertussis DNA (PCR) Pending B.parapertussis DNA PCR Pending C. pneumoniae DNA (PCR) Pending Coronavirus OC43 (PCR) Pending Coronavirus HKU1 (PCR) Pending Coronavirus 229E (PCR) Pending SARS-CoV-2 (PCR) Pending Coronavirus NL63 (PCR) Pending Human Metapneumovir PCR Pending Influenza Type B (PCR) Pending M. pneumoniae (PCR) Pending Parainfluenza 1 (PCR) Pending Parainfluenza 2 (PCR) Pending Parainfluenza 3 (PCR) Pending Parainfluenza 4 (PCR) Pending RSV (PCR) Pending Entero/Rhino (PCR) Pending Diagnostic Findings CT of the abdomen and pelvis personally reviewed and interpreted, also reviewed with radiologist. No evidence of any deep space infection or surgical site infection. No cellulitis. Cervical Spine CT 07/12/25 02:53 EXAM: CT cervical spine wo con CLINICAL HISTORY: Atypical neuro symptoms. TECHNIQUE: CT scan of the cervical spine was performed without the administration of intravenous contrast. Contiguous axial images were obtained from the skull base to the upper thoracic spine. Coronal and sagittal reformatted images were also reviewed. One of the following dose reduction techniques was utilized for this exam. Automated exposure control, adjustment of the mA and/or kV according to patient size, and use of iterative reconstruction. COMPARISON: None. FINDINGS: Vertebrae: No evidence of acute fracture or dislocation. Diffuse osteopenic changes noted. Grade I minimal retrolisthesis of C4 vertebral body. Multilevel anterior and posterior osteophytes with uncovertebral hypertrophy noted. Atlantoaxial osteoarthritic changes. Intervertebral Discs: Moderate to severe reduction of C4-C5 to C6-C7 intervertebral disc spaces with associated posterior disc osteophyte complexes. Large left-sided posterior disc osteophyte complexes at C4-C5 and C5-C6 levels causing moderate spinal canal stenosis and severe stenosis of left lateral recesses, compressing ipsilateral traversing nerve roots. Severe neural foraminal narrowing at C4-C5 level on left side, accentuated by facetal arthropathy, compressing exiting nerve root. Moderate neural foraminal narrowing at C5-C6 level on left side, accentuated by facetal arthropathy, impinging/mildly compressing exiting nerve root. Facet Joints: Severe degenerative changes. Prevertebral Soft Tissues: The prevertebral soft tissues are normal in thickness without evidence of mass or abnormal fluid collection. IMPRESSION: 1. Advanced cervical spondylodegenerative changes as described above. 2. Large left-sided posterior disc osteophyte complexes at C4-C5 and C5-C6 levels causing moderate spinal canal stenosis and severe stenosis of left lateral recesses, compressing ipsilateral traversing nerve roots. Recommended MRI for better evaluation if clinically warranted. 3. Severe neural foraminal narrowing at C4-C5 level on left side, accentuated by facetal arthropathy, compressing exiting nerve root. 4. Rest of the findings as described above. Electronically signed by Nacho Falcon 07-12-2025 04:20 AM Chest X-Ray 07/12/25 02:53 EXAM: XR chest 1V portable CLINICAL HISTORY: Chest pain, nonspecific TECHNIQUE: An X-ray image of the chest is obtained in AP projection. COMPARISON: CT chest done in 06/10/2025. FINDINGS: Pulmonary Parenchyma: Haziness is seen in the left lower zone. Obliteration of the left costophrenic angle noted. [id number] lower zonal /OBX.5.1.1OBX.5.1.2 right upper zonal faint atelectasis (stable)./OBX.5.1.2/OBX.5.1 Heart and Mediastinum: Enlarged heart size (likley projectional). No mediastinal widening or masses. No hilar or mediastinal lymphadenopathy. Bony Thorax: Bony thorax appears intact without fractures or deformities. Soft Tissues: Soft tissues overlying the chest wall are unremarkable. IMPRESSION: Imaging findings are likely due to mild left sided pleural effusion with underlying consolidation/collapse, would recommend clinical lab correlation and further workup. Interval new. Electronically signed by Nacho Falcon 07-12-2025 04:[address] 07/12/25 02:53 EXAM: CT head/brain wo con CLINICAL HISTORY: Atypical neuro symptoms, left arm numbness, and pain. TECHNIQUE: Axial non-contrast CT scan of the brain was performed from the skull base to the high parietal region. One of the following dose reduction techniques were utilized for this exam: Automated exposure control, adjustment of the mA and/or kV according to patient size, use of iterative reconstruction. CTDI: 79.29mGy , DLP: 1409.53 mGy.cm COMPARISON: None. FINDINGS: Brain Parenchyma: Normal attenuation of the cerebral hemispheres, cerebellum, and brainstem. No evidence of acute infarct, hemorrhage, or mass effect. No abnormal areas of hypo- or hyperattenuation. Ventricular System: Ventricles are normal in size and configuration. No evidence of hydrocephalus or ventricular enlargement. Subarachnoid Spaces: Normal sulci and cisterns. No evidence of subarachnoid hemorrhage or extra-axial fluid collections. Cerebellum and Brainstem: No masses, lesions, or areas of abnormal density. Orbits: Normal appearance of the globes, optic nerves, and extraocular muscles. No evidence of orbital masses or abnormal density. 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 Clear other paranasal sinuses. No evidence of sinusitis or mucosal thickening. Mastoid Air Cells: Clear mastoid air cells. No evidence of mastoiditis. Skull: Normal skull morphology. IMPRESSION: 1. No evidence of established territorial ischemic infarction or hemorrhage. 2. If clinically indicated, MRI DWI is the modality of choice to rule out acute ischemic infarction. Electronically signed by Nacho Falcon 07-12-2025 03:52 AM Shoulder X-Ray 07/12/25 02:53 EXAM: XR shoulder LT min 2V routine CLINICAL HISTORY: left arm pain TECHNIQUE: X-ray images of the left shoulder were obtained in anteroposterior (AP) and Y-view projections. COMPARISON: No prior studies available for comparison. FINDINGS: Bone Structure: A faint irregular lucent line seen through the left glenoid, of query clinical significance, for further assessment by CT if clinically indicated. Otherwise: Bone structure is normal and aligned. No evidence of dislocation. The humeral head is properly positioned in the glenoid fossa. No osseous lesions or abnormalities identified. Joint Spaces: Glenohumeral joint spaces are normal. No evidence of joint effusion or subluxation. Soft Tissues: Soft tissues appear normal and unremarkable. No soft tissue swelling, calcifications, or foreign bodies noted. IMPRESSION: 1. A faint irregular lucent line seen through the left glenoid could be due to overlapping structures or a nondisplaced fracture, of query clinical significance, for further assessment by CT if clinically indicated. Disclaimer: A subtle bone abnormality or fracture may not be readily apparent on X-rays, thus clinical correlation and further imaging including follow-up CT, MRI, or follow-up X-rays are advised as needed. Electronically signed by Nacho Falcon 07-12-2025 04:43 AM Abdomen/Pelvis CT 07/12/25 03:18 EXAM: CT abd pelvis IV con only CLINICAL HISTORY: 30k wbc, recent surg TECHNIQUE: Contiguous axial images were obtained from the level of the diaphragm to the pubic symphysis with intravenous contrast. Coronal and sagittal reconstructions were likewise performed and indicated to increase the sensitivity for detecting clinically relevant pathology. If IV contrast material had not been administered, the likelihood of detecting abnormalities relevant to the patient's condition would have been substantially decreased. CT scan was performed according to ALARA (as low as reasonable achievable). COMPARISON: None. FINDINGS: The visualized lung bases are clear. The liver is normal in size and attenuation. No focal liver lesions are seen. There is no intra or extrahepatic biliary ductal dilatation. Hepatic vasculature is patent. The gallbladder is surgically removed. The pancreas, and adrenal glands are unremarkable. Spleen appears enlarged in size measuring about 15 cm. Evidence of patchy hypodense lesions are noted involving splenic parenchyma- possibility of splenic infarct. The kidneys are normal in size and attenuation. There is no hydronephrosis or perinephric fat stranding. No renal calculi or renal masses are identified. The ureters are normal in caliber and no ureteral calculi are seen. The bladder is normal in contour. Pelvic viscera are unremarkable. Right hemicolectomy status. The anastomosis site shows mild inflammatory changes. Mild mucosal thickening is noted involving sigmoid colon- ould be transient due to collapse bowel loop. Mild edematous left rectus abdominis muscle muscle and adjacent omentum in left lower quadrant- sequelae of recent intervention, likely. Minimal interbowel free fluid noted in pelvis No focal or diffuse bowel wall thickening or evidence of bowel obstruction is identified. Abdominal and pelvic vasculature is patent. No adenopathy or fluid collections are seen. No aggressive appearing osseous lesions are identified. IMPRESSION: 1. Right hemicolectomy status. The anastomosis site shows mild inflammatory changes. 2. Mild mucosal thickening is noted involving sigmoid colon- could be transient due to a collapsed bowel loop. 3. Minimal interbowel free fluid noted in pelvis 4. 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 5. Mild edematous left rectus abdominis muscle muscle and adjacent omentum in left lower quadrant- sequelae of recent intervention, likely. Electronically signed by Demarco Hernandez 07-12-2025 05:28 AM Chest CTA 07/12/25 03:18 EXAM: CT angio chest PE protocol CLINICAL HISTORY: PE TECHNIQUE: Contiguous axial images were obtained from the neck base through the upper abdomen following intravenous administration of iodinated contrast material. Angiographic images were processed, 3D MIP images were acquired for interpretation. If IV contrast material had not been administered, the likelihood of detecting abnormalities relevant to the patient's condition would have been substantially decreased. Coronal and sagittal 3-D MIPs were likewise performed and indicated to increase the sensitivity of detectin diffuse clinically relevant pathology. CT scan was performed according to ALARA (as low as reasonable achievable). COMPARISON: 12:36:00 PEARL TECHNICIAN FINDINGS: Multiple atelectatic bands with vascular crowding are noted involving bilateral lower lobes Adequate contrast bolus without evidence of pulmonary embolism. The central airways are patent. Rest of lungs are clear. No pleural effusion. The heart, aorta, and pulmonary arteries are of normal size and configuration. There are no appreciable coronary artery and aortic atherosclerotic calcifications. No pericardial effusion is identified. The thyroid is unremarkable. No mediastinal, hilar, or axillary lymphadenopathy is noted. No suspicious lytic or sclerotic osseous lesions are identified. IMPRESSION: No evidence of pulmonary embolism. Multiple atelectatic bands with vascular crowding are noted involving bilateral lower lobes- sequelae of infection.-new finding. No other new interval abnormality since prior study. Electronically signed by Demarco Hernandez 07-12-2025 05:24 AM Cervical Spine MRI 07/12/25 06:05 MR cervical spine wo/w con HISTORY: 59 years-old Female L arm pain, abnormal CT. Eval for infx vs other. Acute neck pain with left upper extremity radicular symptoms COMPARISON: CT cervical spine 07/12/2025 TECHNIQUE: Multiplanar multisequence MRI cervical spine was obtained with and without IV contrast FINDINGS: Mild levoscoliosis of the upper thoracic spine. The study is motion degraded. The imaged posterior fossa structures appear unremarkable. There is normal signal within the brainstem, cervical and imaged upper thoracic spinal cord. No acute fracture, subluxation, endplate erosion, significant marrow edema or marrow replacing process. No epidural or paraspinal fluid collections. No abnormal enhancement identified. C2-C3: Mild intervertebral disc space narrowing and uncovertebral hypertrophy with moderate facet arthrosis. No central canal or neural foraminal narrowing. C3-C4: 3 mm anterolisthesis, likely secondary to chronic moderate facet arthrosis. Mild intervertebral disc space narrowing with uncovertebral hypertrophy and small circumferential annular disc bulge. No central canal or neural foraminal narrowing. C4-C5: Mild to moderate intervertebral disc space narrowing with 1.4 x 0.7 x 0.9 cm disc osteophyte complex (image 12 series 4 and image 19 series 6) which is nearly completely ossified on the comparison CT. Mild central canal stenosis with AP dimension of the thecal sac measuring 9 mm. Severe left lateral recess narrowing with moderate to severe left foraminal narrowing. The right neural foramen is patent. C5-C6: Mild to moderate intervertebral disc space narrowing. Circumferential disc osteophyte complex, most pronounced centrally with mild to moderate facet arthrosis. Mild central canal stenosis with AP dimension of the thecal sac measuring 9 mm. The right neural foramen is patent. Mild left neural foraminal narrowing. C6-C7: Moderate disc space narrowing with posterior disc osteophyte complex and mild to moderate facet arthrosis. Patent central canal and neural foramen. C7-T1: Mild facet arthrosis. No central canal or foraminal narrowing. IMPRESSION: 1. Motion degraded exam. 2. Large posterior disc osteophyte complex at C4-C5 with caudal extension contributes to cause mild central canal stenosis with severe left lateral recess and moderate to severe left foraminal narrowing. 3. Mild central canal stenosis is also present C5-C6. 4. No significant marrow edema or abnormal enhancement. ACT 112: Negative or not required by law. The above report was generated using voice recognition software. It may contain grammatical, syntax or spelling errors. Electronically signed by: Domenic Thomas M.D. 07/12/2025 10:37 AM PG Care Time/CCT Total # of Minutes Spent Total Time Spent with Patient: Total time spent is greater than 50% in coordination of care (as documented) at patient's floor/unit and/or counseling patient: Coding Level of Care Code 98636 OP VST NEW MOD 45 MIN Diagnoses S/P laparoscopic right hemicolectomy Z90.49 Hospital-acquired pneumonia J18.9; Y95 HIV infection, unspecified symptom status Z21 HIV symptom status: unspecified (3) HIV (human immunodeficiency virus infection) HIV symptom status: unspecified Qualified Code(s): Z21 - Asymptomatic human immunodeficiency virus [HIV] infection status
[2025-07-12 16:00] LABS: Chlamydia pneumoniae PCR Not Detected (NotDetected); Coronavirus 229E PCR Not Detected (NotDetected); Coronavirus CoV-2 (COVID19)PCR Not Detected (NotDetected); Coronavirus HKU1 PCR Not Detected (NotDetected); Coronavirus NL63 PCR Not Detected (NotDetected); Coronavirus OC43PCR Not Detected (NotDetected); Human Metapneumovirus PCR Not Detected (NotDetected); Parainfluenza Virus 1 PCR Not Detected (NotDetected); Parainfluenza Virus 2 PCR Not Detected (NotDetected); Parainfluenza Virus 3 PCR Not Detected (NotDetected); Parainfluenza Virus 4 PCR Not Detected (NotDetected); Respiratory Syncytial VirusPCR Not Detected (NotDetected); Rhinovirus/Enterovirus PCR Not Detected (NotDetected)
[2025-07-12] MEDS ORDERED: MAGNESIUM HYDROXIDE SUSP 30 ML UDC PO PRN (16:03)
[2025-07-12] MEDS ORDERED: ACETAMINOPHEN 325 MG TAB PO PRN (16:03)
[2025-07-12] MEDS ORDERED: POLYETHYLENE (MIRALAX) 17 GM PACK PO PRN (16:03)
[2025-07-12] MEDS: LANTUS PER UNIT CHARGE SQ SCH (17:14)
[2025-07-12] MEDS: INSULIN ASPART PER UNIT CHARGE SC SCH (17:14)
[2025-07-12] MEDS: ROSUVASTATIN CALCIUM 10 MG TAB PO SCH (20:12)
[2025-07-12] MEDS: MIRTAZAPINE TAB 15 MG TAB PO SCH (20:12)
[2025-07-12] MEDS: MONTELUKAST SODIUM 10 MG TABLET PO SCH (20:12)
[2025-07-12] MEDS: PRAZOSIN HCL 1 MG CAP PO SCH (20:12)
[2025-07-12] MEDS: RIVAROXABAN 20 MG TAB PO SCH (20:13)
[2025-07-12] MEDS: CLOPIDOGREL BISULFATE 75 MG TAB PO SCH (20:20)
[2025-07-12] MEDS: GABAPENTIN 600 MG TAB PO SCH (20:20)
[2025-07-12] MEDS ORDERED: CETIRIZINE HCL 10 MG TABLET PO SCH (21:00)
[2025-07-13] MEDS: INSULIN ASPART PER UNIT CHARGE SC SCH (01:42)
[2025-07-13 03:30] LABS: A calco-baum cmplx NotReported Not Detected (NotDetected); Bact fragilis Not Reported Not Detected (NotDetected); Blood Culture Id Panel See PCR Comment (NotDetected); C auris Not Reported Not Detected (NotDetected); Calbicans Not Reported Not Detected (NotDetected); Candida glabrata Not Reported Not Detected (NotDetected); Candida krusei Not Reported Not Detected (NotDetected); Cneoformans/gatti Not Reported Not Detected (NotDetected); Cparapsilosis Not Reported Not Detected (NotDetected); Ctropicalis Not Reported Not Detected (NotDetected); E cloacae compx Not Reported Not Detected (NotDetected); Efaecalis Not Reported Not Detected (NotDetected); Efaecium Not Reported Not Detected (NotDetected); Enterobacterales Not Reported Not Detected (NotDetected); Escherichia coli Not Reported Not Detected (NotDetected); H influenzae Not Reported Not Detected (NotDetected); K aerogenes Not Reported Not Detected (NotDetected); Koxytoca Not Reported Not Detected (NotDetected); Kpneumoniae grp Not Reported Not Detected (NotDetected); Lmonocyt Not Reported Not Detected (NotDetected); N meningitidis Not Reported Not Detected (NotDetected); P aeruginosa Not Reported Not Detected (NotDetected); Proteus spp Not Reported Not Detected (NotDetected); Salmonella spp Not Reported Not Detected (NotDetected); Staph lugdunensis Not Reported Not Detected (NotDetected); Staph spp. Not Reported Not Detected (NotDetected); Staphaureus Not Reported Not Detected (NotDetected); Staphepi Not Reported Not Detected (NotDetected); Stenmaltophilia Not Reported Not Detected (NotDetected); Strep agal(GrpB) Not Reported Not Detected (NotDetected); Strep pneum Not Reported Not Detected (NotDetected); Strep pyog (GrpA) Not Reported Not Detected (NotDetected); Strep spp Not Reported DETECTED (NotDetected)
[2025-07-13 03:40] LABS: Streptococcus spp DETECTED (NotDetected)
--- NOTE | 2025-07-13 03:46 | Communication Note ---
Date of Service: July 13, 2025 Initial blood CS Gram stain gram-positive cocci in chains, 1 bottle. Hold vancomycin for now. Continue Zosyn.
[2025-07-13] MEDS ORDERED: VANCOMYCIN HCL 1,250 MG in SODIUM CHLORIDE 0.9% 250 ML IV SCH (05:00)
[2025-07-13 06:40] LABS: Hematocrit (blood only) 31.7 % (37.0-47.0); Hemoglobin 8.5 g/dl (12.0-16.0); Immature Granulocytes # (auto) 0.09 K/uL (0.01-0.20); Immature Granulocytes % (auto) 0.5 %; Mean Corpuscular Hemoglobin 20.4 pg (25.0-34.0); Mean Corpuscular Volume 76.0 fL (80.0-100.0); Platelet Count 482 K/uL (130-400); RDW Standard Deviation 55.5 fL (36.4-46.3); Red Blood Count 4.17 M/uL (4.20-5.40); White Blood Count 17.49 K/ul (4.8-10.8)
[2025-07-13 07:02] LABS: Alanine Aminotransferase 12.0 U/L (7-52); Albumin Globulin Ratio 1.4 (0.9-2); Alkaline Phosphatase 44.0 U/L (34-104); Anion Gap 6.0 (3-11); Bilirubin,Total 0.5 mg/dl (0.2-1.0); Blood Urea Nitrogen 9.0 mg/dl (6-23); Calcium 8.0 mg/dl (8.6-10.3); Carbon Dioxide 22.0 mmol/L (21-32); Chloride 115.0 mmol/L (98-107); Creatinine Clr Calc Pharmacy 76.8 ml/min; Globulin 2.5 gm/dl (2.5-4.0); Glucose 117.0 mg/dl (70-99(Fasting)); Magnesium 1.8 mg/dl (1.7-2.4); Potassium 3.4 mmol/L (3.5-5.1); Sodium 143.0 mmol/L (136-145); Total Protein 6.0 gm/dl (6.0-8.3)
[2025-07-13 07:12] LABS: Anisocytosis Present; Hypochromasia Present; Ovalocytes 1+; Polychromasia 2+; Tear Drop Cells 1+
[2025-07-13] MEDS ORDERED: POTASSIUM PHOS 3 MMOL/1 ML INFUSION IV STA (07:46)
[2025-07-13] MEDS: POTASSIUM CHLORIDE CRTAB 20 MEQ TABCR PO STA (08:50)
[2025-07-13] MEDS: LANTUS PER UNIT CHARGE SQ SCH (08:50)
[2025-07-13] MEDS: POTASSIUM PHOSPHATE 15 MMOL in SODIUM CHLORIDE 0.9% 250 ML IV ONE (08:50)
[2025-07-13] MEDS: FLUTICASONE FUROATE 200MCG 14 PUFFS/INHALER INH SCH (08:51)
[2025-07-13] MEDS: GABAPENTIN 600 MG TAB PO SCH ×2 (08:51→12:07)
[2025-07-13] MEDS: GABAPENTIN 300 MG CAP PO SCH (08:51)
--- NOTE | 2025-07-13 08:51 | Pharmacy Report ---
Pharmacy PK ABX Note - Date of Service July 13, 2025 - Assessment and Plan Assessment 59 year old F receiving Vancomycin and Zosyn empirically for treatment of sepsis. * Day #2 of antimicrobial therapy. * 1/4 bottles from admit blood cultures growing strep species, likely skin co ntaminant. Abdominal culture growing GNB. MRSA swab is negative. * Vancomycin was placed on hold overnight and will be discontinued this morning. Zosyn extended for 7 days per hospitalist. Plan Vancomycin * Loading dose: 2000 mg IV x 1 * D/c vanc Pharmacy will continue to follow and will adjust dose/frequency as necessary. Thank you. Pharmacy has transitioned to AUC monitoring for vancomycin. AUC/MICK is the preferred PK/PD target and is associated with decreased risk of nephrotoxicity compared to traditional trough targets.
--- NOTE | 2025-07-13 08:57 | Pharmacy Report ---
Pharmacy Glycemic Short Note 2 - Date of Service July 13, 2025 - Glycemic Short BSG Results (Last 24 hours): 07/12/25 07/12/25 07/13/25 16:16 19:50 01:38 Glucose POC Glucose 218 H 217 H 142 H 07/13/25 07/13/25 05:52 07:35 Glucose 117 H POC Glucose 126 H OUTPATIENT ANTIDIABETIC REGIMEN: * Lantus 28 units SC HS * Novolog SSI SC AC * Jardiance 10 mg PO AM HbA1c: * 5.5% (05/31/25) ASSESSMENT: * 59 yo F admitted on 07/12/25 secondary to sepsis. Pharmacy has been consulted to assist with inpatient glycemic management. Patient is a Type 2 diabetic as an outpatient. Please refer to outpatient regimen and most recent HbA1c above. * Ordered a T2DM diet. Did not eat much yesterday, but did tolerate breakfast this AM. Was given a reduced home dose of basal upon admit yesterday. Novolog was started based on weight/stress of 2-3. BSGs trended down nicely yesterday: [phone] mg/dL. * Fasting BSG this AM was 126 mg/dL. Will reduce basal dose by 20% today. No change to Novolog for now. * Stressors remain stable. No further steroids to be administered. On Zosyn for GI infection. PLAN FOR INPATIENT GLYCEMIC CONTROL: * Hold outpatient oral diabetes medications * Basal insulin * Lantus 12 units SC AM * Bolus insulin * NovoLog per scale ACHS or Q6hrs while NPO * Goal Range: Low 110 mg/dL - High 140 mg/dL * Correction Factor: 20 mg/dL/unit * Nutritional / Prandial insulin per carb ratio of 1 unit per 7 grams CHO consumed
--- NOTE | 2025-07-13 11:29 | Hospitalist Progress Note ---
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 Escalera at [facility], history of reocclusion of SMA s/p mechanical thrombectomy of SMA with placement of 4 stents on 06/15/[address] Escalera at [facility] on Xarelto and Plavix, history of type B aortic dissection of the distal aortic arch [healed on repeat CTA abd/pelvis completed on 11/21/22], HIV on Biktarvy, hepatic steatosis, age-related osteoporosis, generalized osteoarthritis, migraines, depression/VICKIE and other problems as outlined in the chart who presented to the ED for evaluation of L arm pain and paresthesias. History obtained from the patient, discussion with ED provider and associated chart review. Patient seen at bedside in the ED with Dr. Boudreaux. Recent confinement under our service 06/08/25-06/11/25 due to ABLA s/p 3U PRBCs ISO a newly discovered colonic mass and RUL pulmonary nodule concerning for malignancy. S/p colonoscopy on 06/10/25 which revealed a >50mm polyp in the ascending colon (removed via hot snare), a medium (7-9mm) polyp in the descending colon (removed via cold snare). 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 Seen and evaluated by [facility] general surgery in the outpatient setting on 06/22/25 with recommendation to perform R hemicolectomy. Now s/p laparoscopic hand-assist R hemicolectomy on 06/30/[address] Jann Greenwood at [facility]. #Severe sepsis POA #Bilateral lower lobe PNA c/f likely HAP --> given recent admissions, as per above #Likely Infected surgical wound --> large laparoscopic surgical incision on L aspect of abd w/ purulent drainage, surrounding erythema at presentation. #S/p laparoscopic R hemicolectomy on 06/30/[address] Jann Greenwood at [facility] #Bactremia, ? contaminant At presentation, WBC 29.9k. LA 2.9 Pt w/ nonproductive cough x 4-5d, chills Chest CTA: no PE, multiple atelectatic bands with vascular crowding are noted involving BLL (new finding, sequelae of infection) CTAP: no abscess or new acute pathology. Wound cx obtained from abd -Purulent drainage from superior most aspect of large abd incision site, erythema surrounding large abd incision site (pics provided in PE section of note) at presentation -Wound care consult, re: address appropriate dressing recs, monitoring 07/12 Wound Cx +ve for Eneterobacter cloacae complex 07/12 Bl Cx 1 of 4 bottles: GPC in chains. MRSA nares neg. Obtain sputum cx as able S/p IV vanco, Zosyn in ED --> DC Vanco, c/w zosyn 07/12 Repeat Bl Cx in AM, ID consult incisional wound w/ minimal erythema along border, superior pole w/ yellow slough, no drainage, no tenderness today --> c/w wound care. Gen Sx evaled, likely not SSI, recs are local wound care, daily dressing. #L arm pain and paraesthesias --> suddenly developed overnight [employer]; no precipitating injuries/events #Severe cervical spinal stenosis w/ nerve impingement Cervical spine CT: Large left-sided posterior disc osteophyte complexes at C4-C5 and C5-C6 levels causing moderate spinal canal stenosis and severe stenosis of left lateral recesses, compressing ipsilateral traversing nerve roots. Severe neural foraminal narrowing at C4-C5 level on left side, accentuated by facetal arthropathy, compressing exiting nerve root. Cervical spine MRI: Large posterior disc osteophyte complex at C4-C5 with caudal extension contributes to cause mild central canal stenosis with severe left lateral recess and moderate to severe left foraminal narrowing. Mild central canal stenosis is also present C5-C6. No significant marrow edema or abnormal enhancement. Case discussed b/n on-call ortho spine surgeon, Dr. Murrieta, and ED provider -Urgent surgical intervention not indicated at this time -Recommending IV steroids (s/p 10mg IV dexamethasone in ED) -Activity as tolerated -Realistically will need to consider possible surgical intervention once infection resolved if persistence of sx Will consider steroid once bacteremia is ruled out, await ID eval. #Acute blood loss anemia requiring 3U PRBCs in 05/2025 --> during last confinement (as per above) H/H appears stable Continue to monitor #Mesenteric arterial disease #H/o occluded SMA s/p mechanical thrombectomy on 06/13/20 #H/o RRA thrombus s/p mechanical thrombectomy on 06/13/20 #H/o reocclusion of SMA s/p repeat mechanical thrombectomy w/ placement on 4 stents on 06/15/20 #Chronic anticoagulation use on Xarelto F/w [facility] vascular surgery, Dr. Escalera CTA abd/pelvis, 06/08/25 (during last confinement): a long stent is seen in the proximal superior mesenteric artery --> the stent is thrombosed with distal reconstitution of the vessel and collateral vessels between the SMA/KERRIE circulation and this is of indeterminate chronicity Continue Xarelto, Plavix given stable H/H and no s/sx of bleeding Will need OP vascular surgery f/u appt #History of short segment type B aortic dissection of the distal aortic arch Tx'd medically --> appears healed on repeat CTA abd/pelvis done 11/21/22 F/w [facility] vascular surgery as per above #HIV F/w [facility] ID, Dr. Aguirre II On Biktarvy CD4 792, viral load <20 last month per OP chart review --> will recheck #H/o tobacco use Recently quit smoking last month #VICKIE #Depression #Prolonged QTc --> 509ms on admitting EKG Continue Wellbutrin Holding Lexapro for now in light of prolonged QTc --> repeat EKG 2morrow to monitor this #Insulin-requiring DMII Hold home regimen Basal/bolus regimen while inpt Glycemic pharm consult Hgb A1c 5.5% 1mo ago Follow BSG checks ACHS #Lumbar DDD Continue gabapentin #Asthma Stable Continue Flovent, Singulair #HLD Continue statin #GERD Continue PPI #CKD stage IIIa Cr stable Baseline Cr ~1.0-1.3 per chart review Continue to monitor Avoid nephrotoxic agents as able #Splenomegaly Noted on CTA abd/pelvis last admission OP f/u advised #Indeterminate 13mm L adrenal nodule Noted on CTA abd/pelvis last admission OP f/u advised #Age-related osteoporosis On alendronate --> will hold for now DVT Prophylaxis: Xarelto Disposition: Admit to PCU Admission and Anticipated Discharge Date Admission Date: July 12, 2025 Subjective Patient was seen and examined at bedside. Patient was lying in bed, on room air, NAD, resting comfortably. Patient does have cough but denies purulence. Patient denies abdominal pain, mild erythema along the incisional border in the abdomen noted, non tender. Pt reports eating ok and moving bowels ok. Physical Exam Physical Exam: GENERAL: Alert and oriented x3. NAD, on RA. HEENT: No pallor, no icterus. Pupils equal, round and reactive to light. Oral mucosa moist. NECK: No JVD, no neck masses. HEART: S1 and S2 heard. Regular rate and rhythm. No murmur, no gallop. RESPIRATORY SYSTEM: Normal AP diameter. No accessory muscle use. No wheezing, no crackles. ABDOMEN: Soft, bowel sounds present, nontender, no distention. minimal incisional erythema along the borders, non tender, no purulence noted. Upper pole of incision site w/ likely superficial yellow slough/necrosis CENTRAL NERVOUS SYSTEM: No facial droop. Speech is clear. Obeys simple commands. Moves extremities. EXTREMITIES: No edema, no erythema seen. Results & Data Results & Data Vital Signs (Past 12 Hours) Vital Signs Temp Pulse Pulse Resp BP Pulse Ox O2 Del Method 07/13/25 10:46 36.9 C 88 20 119/72 97 Room Air 07/13/25 09:11 80 07/13/25 09:11 Room Air 07/13/25 07:39 36.9 C 91 H 18 145/74 H 100 Room Air 07/13/25 03:36 36.8 C 76 20 108/60 95 Room Air (2) Pneumonia of both lower lobes Pneumonia type: due to unspecified organism Qualified Code(s): J18.9 - Pneumonia, unspecified organism
--- NOTE | 2025-07-13 13:09 | Electrocardiogram Report ---
Test Reason : Blood Pressure : */* mmHG Vent. Rate : 81 BPM Atrial Rate : * BPM P-R Int : * ms QRS Dur : 94 ms QT Int : 372 ms P-R-T Axes : * -1 243 degrees QTcB Int : 432 ms Normal sinus rhythm Nonspecific ST and T wave abnormality Abnormal ECG When compared with ECG of 12-Jul-2025 02:48, Significant changes have occurred Confirmed by Be Riggins ([id number]) on 07/13/2025 1:09:47 PM Referred By: REFERRED SELF Confirmed By: Be Riggins
[2025-07-14 07:03] LABS: Hematocrit (blood only) 32.9 % (37.0-47.0); Hemoglobin 8.7 g/dl (12.0-16.0); Mean Corpuscular Hemoglobin 20.0 pg (25.0-34.0); Mean Corpuscular Volume 75.8 fL (80.0-100.0); Platelet Count 456 K/uL (130-400); RDW Standard Deviation 54.4 fL (36.4-46.3); Red Blood Count 4.34 M/uL (4.20-5.40); White Blood Count 9.78 K/ul (4.8-10.8)
[2025-07-14 07:18] LABS: Anion Gap 6.0 (3-11); Blood Urea Nitrogen 7.0 mg/dl (6-23); Calcium 8.4 mg/dl (8.6-10.3); Carbon Dioxide 23.0 mmol/L (21-32); Chloride 113.0 mmol/L (98-107); Creatinine Clr Calc Pharmacy 76.2 ml/min; Glucose 110.0 mg/dl (70-99(Fasting)); Magnesium 1.7 mg/dl (1.7-2.4); Potassium 3.5 mmol/L (3.5-5.1); Sodium 142.0 mmol/L (136-145)
[2025-07-14] MEDS: LANTUS PER UNIT CHARGE SQ SCH (08:18)
--- NOTE | 2025-07-14 10:15 | Hospitalist Progress Note ---
Date of Service July 14, 2025 Assessment & Plan (1) Severe sepsis: (2) Pneumonia of both lower lobes: (3) Infected surgical wound: (4) S/P laparoscopic right hemicolectomy: (5) Pain of left upper extremity: (6) Arm paresthesia, left: Plan Patient is a medically complex 59y/o F with PMHx significant for insulin- requiring DM type II [Hgb A1c 5.5% 1mo ago], diabetic polyneuropathy, HLD, hyperparathyroidism, history of thyroid nodule, mild persistent asthma, NATHALY on CPAP HS, 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 Escalera at [facility], history of reocclusion of SMA s/p mechanical thrombectomy of SMA with placement of 4 stents on 06/15/[address] Escalera at [facility] on Xarelto and Plavix, history of type B aortic dissection of the distal aortic arch [healed on repeat CTA abd/pelvis completed on 11/21/22], HIV on Biktarvy, hepatic steatosis, age-related osteoporosis, generalized osteoarthritis, migraines, depression/VICKIE and other problems as outlined in the chart who presented to the ED for evaluation of L arm pain and paresthesias. History obtained from the patient, discussion with ED provider and associated chart review. Patient seen at bedside in the ED with Dr. Boudreaux. Recent confinement under our service 06/08/25-06/11/25 due to ABLA s/p 3U PRBCs ISO a newly discovered colonic mass and RUL pulmonary nodule concerning for malignancy. S/p colonoscopy on 06/10/25 which revealed a >50mm polyp in the ascending colon (removed via hot snare), a medium (7-9mm) polyp in the descending colon (removed via cold snare). 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 Seen and evaluated by [facility] general surgery in the outpatient setting on 06/22/25 with recommendation to perform R hemicolectomy. Now s/p laparoscopic hand-assist R hemicolectomy on 06/30/[address] Jann Greenwood at [facility]. #Severe sepsis POA #Bilateral lower lobe PNA c/f likely HAP --> given recent admissions, as per above #Likely Infected surgical wound --> large laparoscopic surgical incision on L aspect of abd w/ purulent drainage, surrounding erythema at presentation. #S/p laparoscopic R hemicolectomy on 06/30/[address] Jann Greenwood at [facility] #Bactremia, ? contaminant At presentation, WBC 29.9k. LA 2.9 Pt w/ nonproductive cough x 4-5d, chills Chest CTA: no PE, multiple atelectatic bands with vascular crowding are noted involving BLL (new finding, sequelae of infection) CTAP: no abscess or new acute pathology. Wound cx obtained from abd -Purulent drainage from superior most aspect of large abd incision site, erythema surrounding large abd incision site (pics provided in PE section of note) at presentation -Wound care consult, re: address appropriate dressing recs, monitoring 07/12 Wound Cx +ve for Eneterobacter cloacae complex 07/12 Bl Cx 1 of 4 bottles: GPC in chains. MRSA nares neg. Obtain sputum cx as able S/p IV vanco, Zosyn in ED --> DC Vanco, c/w zosyn 07/12 awaiting wound cx results, ID consult incisional wound w/ minimal erythema along border, superior pole w/ yellow slough, no drainage, no tenderness today --> c/w wound care. Gen Sx evaled, likely not SSI, recs are local wound care, daily dressing. #L arm pain and paraesthesias --> suddenly developed overnight [employer]; no precipitating injuries/events #Severe cervical spinal stenosis w/ nerve impingement Cervical spine CT: Large left-sided posterior disc osteophyte complexes at C4-C5 and C5-C6 levels causing moderate spinal canal stenosis and severe stenosis of left lateral recesses, compressing ipsilateral traversing nerve roots. Severe neural foraminal narrowing at C4-C5 level on left side, accentuated by facetal arthropathy, compressing exiting nerve root. Cervical spine MRI: Large posterior disc osteophyte complex at C4-C5 with caudal extension contributes to cause mild central canal stenosis with severe left lateral recess and moderate to severe left foraminal narrowing. Mild central canal stenosis is also present C5-C6. No significant marrow edema or abnormal enhancement. Case discussed b/n on-call ortho spine surgeon, Dr. Murrieta, and ED provider -Urgent surgical intervention not indicated at this time -Recommending IV steroids (s/p 10mg IV dexamethasone in ED) -Activity as tolerated -Realistically will need to consider possible surgical intervention once infection resolved if persistence of sx Will consider steroid once bacteremia is ruled out, await ID eval. #Acute blood loss anemia requiring 3U PRBCs in 05/2025 --> during last confinement (as per above) H/H appears stable Continue to monitor #Mesenteric arterial disease #H/o occluded SMA s/p mechanical thrombectomy on 06/13/20 #H/o RRA thrombus s/p mechanical thrombectomy on 06/13/20 #H/o reocclusion of SMA s/p repeat mechanical thrombectomy w/ placement on 4 stents on 06/15/20 #Chronic anticoagulation use on Xarelto F/w [facility] vascular surgery, Dr. Escalera CTA abd/pelvis, 06/08/25 (during last confinement): a long stent is seen in the proximal superior mesenteric artery --> the stent is thrombosed with distal reconstitution of the vessel and collateral vessels between the SMA/KERRIE circulation and this is of indeterminate chronicity Continue Xarelto, Plavix given stable H/H and no s/sx of bleeding Will need OP vascular surgery f/u appt #History of short segment type B aortic dissection of the distal aortic arch Tx'd medically --> appears healed on repeat CTA abd/pelvis done 11/21/22 F/w [facility] vascular surgery as per above #HIV F/w [facility] ID, Dr. Aguirre II On Biktarvy CD4 792, viral load <20 last month per OP chart review --> will recheck #H/o tobacco use Recently quit smoking last month #VICKIE #Depression #Prolonged QTc --> 509ms on admitting EKG Continue Wellbutrin qtc improved in repeat ekg; lexapro restarted #Insulin-requiring DMII Hold home regimen Basal/bolus regimen while inpt Glycemic pharm consult Hgb A1c 5.5% 1mo ago Follow BSG checks ACHS #Lumbar DDD Continue gabapentin #Asthma Stable Continue Flovent, Singulair #HLD Continue statin #GERD Continue PPI #CKD stage IIIa Cr stable Baseline Cr ~1.0-1.3 per chart review Continue to monitor Avoid nephrotoxic agents as able #Splenomegaly Noted on CTA abd/pelvis last admission OP f/u advised #Indeterminate 13mm L adrenal nodule Noted on CTA abd/pelvis last admission OP f/u advised;discussed with patient. #Age-related osteoporosis On alendronate --> will hold for now DVT Prophylaxis: Xarelto Disposition: Admit to PCU Time spent evaluating patient, direct bedside care, chart review, placing orders, interpretation of diagnostic studies, discussion with consultants, patient, and family members, as well as other required patient management activities is 50 minutes Please note the above document was generated using voice recognition software. It may contain grammatical, syntax or spelling errors. Any formal questions or concerns about the content, text or information contained within the body of this dictation should be directly addressed to the provider for clarification Admission and Anticipated Discharge Date Admission Date: July 12, 2025 Subjective Patient seen and examined at bedside. She is comfortable; not in distress. She tolerating diet without any issues No significant events overnight Review of Systems Review of Systems: All systems reviewed & are unremarkable except as noted in Subjective Physical Exam Physical Exam: GENERAL: Alert and oriented x3. NAD, on RA. HEENT: No pallor, no icterus. Pupils equal, round and reactive to light. Oral mucosa moist. NECK: No JVD, no neck masses. HEART: S1 and S2 heard. Regular rate and rhythm. No murmur, no gallop. RESPIRATORY SYSTEM: Normal AP diameter. No accessory muscle use. No wheezing, no crackles. ABDOMEN: Soft, bowel sounds present, nontender, no distention. minimal incisional erythema along the borders, non tender, no purulence noted. Upper pole of incision site w/ likely superficial yellow slough/necrosis CENTRAL NERVOUS SYSTEM: No facial droop. Speech is clear. Obeys simple commands. Moves extremities. EXTREMITIES: No edema, no erythema seen. Results & Data Results & Data Vital Signs (Past 12 Hours) Vital Signs Temp Pulse Pulse Resp BP Pulse Ox O2 Del Method 07/14/25 08:00 78 07/14/25 07:49 37.1 C 94 H 18 131/75 97 Room Air 07/14/25 03:27 36.8 C 83 19 130/63 97 Room Air 07/13/25 23:07 36.9 C 100 H 19 122/73 97 Room Air 07/13/25 22:33 95 H (2) Pneumonia of both lower lobes Pneumonia type: due to unspecified organism Qualified Code(s): J18.9 - Pneumonia, unspecified organism
[2025-07-14] MEDS: ESCITALOPRAM OXALATE 20 MG TAB PO SCH (12:11)
--- NOTE | 2025-07-14 12:54 | Infectious Disease Consult ---
Date of Service July 14, 2025 Telehealth Information I performed this visit using a real-time telehealth connection between my location and the patients location ([facility]). After connecting through interactive tele-video, patient was identified by name and date of and/or wristband check.Patient (or authorized healthcare sales representative publications) was informed that this was a telemedicine visit and it was being conducted confidentially over secure lines. My office door was closed and no o ne else was present in the room with me.Patient (or authorized healthcare sales representative publications) provided consent to proceed with the visit, expressed an understanding of privacy and security of the telemedicine visit, and gave permission to have a hospital sales representative publications in the room in order to assist with the visit and to conduct portions of the visit, as needed. I informed the patient (or authorized healthcare sales representative publications) that I reviewed their record and presented the opportunity for them to ask any questions regarding the visit today. The patient agreed to participate. Assessment & Plan (1) Hospital-acquired pneumonia: (2) Infected surgical wound: (3) Pneumonia of both lower lobes: (4) Severe sepsis: Plan Assessment: 59y/o F with PMHx significant for insulin-requiring DM type II [Hgb A1c 5.5% 1mo ago], diabetic polyneuropathy, HLD, hyperparathyroidism, history of thyroid nodule, mild persistent asthma, NATHALY on CPAP HS, 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 Escalera at [facility], history of reocclusion of SMA s/p mechanical thrombectomy of SMA with placement of 4 stents on 06/15/[address] Escalera at [facility] on Xarelto and Plavix, history of type B aortic dissection of the distal aortic arch [healed on repeat CTA abd/pelvis completed on 11/21/22], HIV on Biktarvy, hepatic steatosis, age-related osteoporosis, generalized osteoarthritis, migraines, depression/VICKIE, etc presented to [facility] on 07/12/2025 for evaluation of L arm pain and paresthesias. Per notes and chart review, pt had recent admission on 06/08/25-06/11/25 due to ABLA s/p 3U PRBCs ISO a newly discovered colonic mass and RUL pulmonary nodule concerning for malignancy. S/p colonoscopy on 06/10/25 which revealed a >50mm polyp in the ascending colon (removed via hot snare), a medium (7-9mm) polyp in the descending colon (removed via cold snare). 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 Seen and evaluated by [facility] general surgery in the outpatient setting on 06/22/25 with recommendation to perform R hemicolectomy. Now s/p laparoscopic hand-assist R hemicolectomy on 06/30/[address] Jann Greenwood at [facility]. Pt has blood cultures and wound collected. Concern for infection of abd wound incision and potentially PNA. Plan: 1. Abdominal wound infection and potential HAP - Okay to continue Zosyn IV while inpatient, recommend switching to Cipro 500 mg PO BID and Augmentin 875 mg PO BID to complete 14 days of total antibiotics. EKG with QTc 432, no issue with cipro. - we will sign off, please schedule ID clinic appointment with ID in [address] d/c, Pt is followed by me outpt, please schedule appointment with Dr. Aguirre. History of Present Illness History of Present Illness Reason for Consult: HAP, ? SSI, ? bacteremia 59y/o F with PMHx significant for insulin-requiring DM type II [Hgb A1c 5.5% 1mo ago], diabetic polyneuropathy, HLD, hyperparathyroidism, history of thyroid nodule, mild persistent asthma, NATHALY on CPAP HS, 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 Escalera at [facility], history of reocclusion of SMA s/p mechanical thrombectomy of SMA with placement of 4 stents on 06/15/[address] Escalera at [facility] on Xarelto and Plavix, history of type B aortic dissection of the distal aortic arch [healed on repeat CTA abd/pelvis completed on 11/21/22], HIV on Biktarvy, hepatic steatosis, age-related osteoporosis, generalized osteoarthritis, migraines, depression/VICKIE, etc presented to [facility] on 07/12/2025 for evaluation of L arm pain and paresthesias. Per notes and chart review, pt had recent admission on 06/08/25-06/11/25 due to ABLA s/p 3U PRBCs ISO a newly discovered colonic mass and RUL pulmonary nodule concerning for malignancy. S/p colonoscopy on 06/10/25 which revealed a >50mm polyp in the ascending colon (removed via hot snare), a medium (7-9mm) polyp in the descending colon (removed via cold snare). 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 Seen and evaluated by [facility] general surgery in the outpatient setting on 06/22/25 with recommendation to perform R hemicolectomy. Now s/p laparoscopic hand-assist R hemicolectomy on 06/30/[address] Jann Greenwood at [facility]. Pt has blood cultures and wound collected. ID consulted for evaluation regarding concern for infection of abd wound incision and potentially PNA. Allergies Allergy/AdvReac Type Severity Reaction Status Date / Time levofloxacin AdvReac Intermediate Nausea/Vomiting Verified 06/08/25 13:47 "extreme" Home Medications Medication Instructions Recorded Confirmed Type bupropion HCl 200 mg tablet,12 hr 200 mg PO QAM 09/23/19 07/12/25 History sustained-release (Wellbutrin SR) gabapentin 300 mg capsule 300 mg PO QAM 09/23/19 07/12/25 History albuterol sulfate 90 mcg/actuation 2 puffs inhalation Q6H PRN 04/18/20 07/12/25 History aerosol inhaler (Ventolin HFA) Shortness Of Breath Or Wheezing mirtazapine 15 mg tablet 15 mg PO HS 06/12/20 07/12/25 History alendronate 70 mg tablet 70 mg PO WK 06/08/25 07/12/25 History bictegravir 50 mg-emtricitabine 1 tab PO QAM 06/08/25 07/12/25 History 200 mg-tenofovir alafenam 25 mg tablet (Biktarvy) clopidogrel 75 mg tablet 75 mg PO QPM 06/08/25 07/12/25 History empagliflozin 10 mg tablet 10 mg PO QAM 06/08/25 07/12/25 History (Jardiance) escitalopram oxalate 20 mg tablet 20 mg PO QAM 06/08/25 07/12/25 History fluticasone propionate 220 2 puff inhalation BID 06/08/25 07/12/25 History mcg/actuation HFA aerosol inhaler gabapentin 600 mg tablet 600 - 1,200 mg PO TID 06/08/25 07/12/25 History insulin aspart U-100 100 unit/mL 1 sliding scale dose subcut TID 06/08/25 07/12/25 History (3 mL) subcutaneous pen (Novolog FlexPen U-100 Insulin aspart) insulin glargine 100 unit/mL (3 28 unit subcut HS 06/08/25 07/12/25 History mL) subcutaneous pen (Lantus Solostar U-100 Insulin) levocetirizine 5 mg tablet 2.5 mg PO QPM 06/08/25 07/12/25 History montelukast 10 mg tablet 10 mg PO HS 06/08/25 07/12/25 History pantoprazole 20 mg tablet,delayed 20 mg PO QAM 06/08/25 07/12/25 History release prazosin 1 mg capsule 1 mg PO HS 06/08/25 07/12/25 History rivaroxaban 20 mg tablet (Xarelto) 20 mg PO HS 06/08/25 07/12/25 History rosuvastatin 10 mg tablet 10 mg PO HS 06/08/25 07/12/25 History acetaminophen 325 mg tablet 325 mg PO Q6 07/12/25 07/12/25 History meclizine 25 mg tablet 25 mg PO TID PRN Nausea And 07/12/25 07/12/25 History Vomiting ondansetron 4 mg disintegrating 4 mg PO Q8 PRN Nausea And Vomiting 07/12/25 07/12/25 History tablet oxycodone 10 mg tablet 10 mg PO Q8 07/12/25 07/12/25 History Patient History Medical History (Updated 07/12/25 @ 21:35 by Evaristo Felix PA-C) Degenerative disc disease Osteoarthritis Chronic kidney disease STAGE 3 "COUNTS ARE IMPROVING" GERD (gastroesophageal reflux disease) History of cancer of vagina S/P surgical intervention and chemotherapy Anxiety and depression Asthma LAST USED RESCUE INHALER 2 MONTHS AGO Surgical History (Updated 07/12/25 @ 13:58 by Cirsty Lozada PA-C) History of hysterectomy History of total knee replacement RT History of colonoscopy History of tooth extraction History of tonsillectomy and adenoidectomy History of myringotomy Family History Mother Family history of diabetes mellitus Father Family history of diabetes mellitus Grandfather (Maternal) Family history of diabetes mellitus Grandmother (Maternal) Family history of diabetes mellitus Social History Smoking Status: Former smoker Tobacco Type: Cigarettes Cigarettes Per Day: 1 pack a week; Second Hand Exposure: Yes; Do You Dip or Chew Tobacco: No; Hx Alcohol Use: No Hx Substance Use: No Preferred Language: Japanese Communication Ability: Effective Parking Line Painter Required: No Beliefs That Will Affect Care: None Current Living Situation: Alone Feels Safe at Home: Yes Assistive Devices: Cane and Walker Review of Systems ROS: reviewed all ROS and patient feeling much better today. Physical Exam NA Results & Data Vital Signs (Past 12 Hours) Vital Signs Temp Pulse Pulse Resp BP Pulse Ox O2 Del Method 07/14/25 11:08 36.8 C 101 H 20 139/82 98 Room Air 07/14/25 08:00 78 07/14/25 07:49 37.1 C 94 H 18 131/75 97 Room Air 07/14/25 03:27 36.8 C 83 19 130/63 97 Room Air Laboratory Results Blood culture on 07/12/2025 Blood Culture Aerobic Preliminary 07/14/25-0500 No growth in Aerobic bottle after 48 hours. Blood Culture Anaerobic Preliminary 07/14/25-1216 Organism 1 Steptococcus parasanguinis Sens No Sensitivities to Follow Blood Culture PCR Panel If viewing in EMR, results available under LAB Serology tab. Wound culture on 07/12/2025 Surface Wound Culture Preliminary 07/14/25-0950 Organism 1 Enterobacter cloacae complex Quantity Moderate Sens Sensitivities to Follow +MixWound Plus Low Counts of Probable Skin Claire Organism 2 Strep agalactiae (group B) Quantity Few Sens Sensitivities to Follow Entclo cpx RX M.I.C. --- --------- Amikacin S <=16 Cefepime S <=2 Cefotaxime S <=2 Ceftriaxone R 8 Ciprofloxacin S <=0.25 Ertapenem S <=0.5 Gentamicin S <=2 Levofloxacin S <=0.5 Meropenem S <=1 Tobramycin S <=2 Trimeth/Sulfa S <=0.5/9.5 Pip/Tazo S <=8 S = SENSITIVE I = INTERMEDIATE R = RESISTANT Blood cultures on 07/14/2025 pending 07/12/25 03:26 Aerobic Blood Culture - Preliminary Blood No growth in Aerobic bottle after 48 hours. Anaerobic Blood Culture - Preliminary Steptococcus parasanguinis 07/12/25 13:04 Gram Stain - Final Abdomen Wound Culture - Preliminary Enterobacter cloacae complex Strep agalactiae (group B) 07/14/25 06:33 Aerobic Blood Culture - Pending Blood Anaerobic Blood Culture - Pending 07/14/25 06:48 Aerobic Blood Culture - Pending Blood Anaerobic Blood Culture - Pending 07/12/25 03:44 Aerobic Blood Culture - Preliminary Blood No growth in Aerobic bottle after 48 hours. Anaerobic Blood Culture - Preliminary No growth in Anaerobic bottle after 48 hours. 07/14/25 07/14/25 07/14/25 11:24 07:19 06:33 WBC 9.78 RBC 4.34 Hgb 8.7 L Hct 32.9 L MCV 75.8 L MCH 20.0 L MCHC 26.4 L RDW Std Deviation 54.4 H RDW Coeff of Ranjit 20.0 H Plt Count 456 H MPV 10.0 Sodium 142 Potassium 3.5 Chloride 113 H Carbon Dioxide 23 Anion Gap 6 BUN 7 Creatinine 0.90 Est Cr Clr Drug Dosing 76.2 eGFR 72.73 BUN/Creatinine Ratio 7.8 L Glucose 110 H POC Glucose 141 H 146 H Calcium 8.4 L Phosphorus 2.7 Magnesium 1.7 07/13/25 07/13/25 20:12 16:15 WBC RBC Hgb Hct MCV MCH MCHC RDW Std Deviation RDW Coeff of Ranjit Plt Count MPV Sodium Potassium Chloride Carbon Dioxide Anion Gap BUN Creatinine Est Cr Clr Drug Dosing eGFR BUN/Creatinine Ratio Glucose POC Glucose 139 H 101 H Calcium Phosphorus Magnesium Diagnostic Findings CTA chest on 07/12/2025 IMPRESSION: No evidence of pulmonary embolism. Multiple atelectatic bands with vascular crowding are noted involving bilateral lower lobes- sequelae of infection.-new finding. No other new interval abnormality since prior study. CTA abd/pelvis on 07/12/2025 IMPRESSION: 1. Right hemicolectomy status. The anastomosis site shows mild inflammatory changes. 2. Mild mucosal thickening is noted involving sigmoid colon- could be transient due to a collapsed bowel loop. 3. Minimal interbowel free fluid noted in pelvis 4. 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 5. Mild edematous left rectus abdominis muscle muscle and adjacent omentum in left lower quadrant- sequelae of recent intervention, likely. Medications Administered Home Medications Medication Instructions Recorded Confirmed Last Taken bupropion HCl 200 mg tablet,12 hr 200 mg PO QAM 09/23/19 07/12/25 06/08/25 sustained-release (Wellbutrin SR) gabapentin 300 mg capsule 300 mg PO QAM 09/23/19 07/12/25 07/11/25 albuterol sulfate 90 mcg/actuation 2 puffs inhalation Q6H PRN 04/18/20 07/12/25 Unknown aerosol inhaler (Ventolin HFA) Shortness Of Breath Or Wheezing mirtazapine 15 mg tablet 15 mg PO HS 06/12/20 07/12/25 06/07/25 alendronate 70 mg tablet 70 mg PO WK 06/08/25 07/12/25 Unknown bictegravir 50 mg-emtricitabine 1 tab PO QAM 06/08/25 07/12/25 07/11/25 200 mg-tenofovir alafenam 25 mg tablet (Biktarvy) clopidogrel 75 mg tablet 75 mg PO QPM 06/08/25 07/12/25 07/11/25 empagliflozin 10 mg tablet 10 mg PO QAM 06/08/25 07/12/25 07/11/25 (Jardiance) escitalopram oxalate 20 mg tablet 20 mg PO QAM 06/08/25 07/12/25 07/11/25 fluticasone propionate 220 2 puff inhalation BID 06/08/25 07/12/25 06/08/25 mcg/actuation HFA aerosol inhaler gabapentin 600 mg tablet 600 - 1,200 mg PO TID 06/08/25 07/12/25 07/11/25 insulin aspart U-100 100 unit/mL 1 sliding scale dose subcut TID 06/08/25 0 07/12/25 06/08/25 (3 mL) subcutaneous pen (Novolog FlexPen U-100 Insulin aspart) insulin glargine 100 unit/mL (3 28 unit subcut HS 06/08/25 07/12/25 06/08/25 mL) subcutaneous pen (Lantus Solostar U-100 Insulin) levocetirizine 5 mg tablet 2.5 mg PO QPM 06/08/25 07/12/25 06/07/25 montelukast 10 mg tablet 10 mg PO HS 06/08/25 07/12/25 07/11/25 pantoprazole 20 mg tablet,delayed 20 mg PO QAM 06/08/25 07/12/25 06/08/25 release prazosin 1 mg capsule 1 mg PO HS 06/08/25 07/12/25 06/07/25 rivaroxaban 20 mg tablet (Xarelto) 20 mg PO HS 06/08/25 07/12/25 06/07/25 rosuvastatin 10 mg tablet 10 mg PO HS 06/08/25 07/12/25 06/07/25 acetaminophen 325 mg tablet 325 mg PO Q6 07/12/25 07/12/25 Unknown meclizine 25 mg tablet 25 mg PO TID PRN Nausea And 07/12/25 07/12/25 Unknown Vomiting ondansetron 4 mg disintegrating 4 mg PO Q8 PRN Nausea And Vomiting 07/12/25 07/12/25 Unknown tablet oxycodone 10 mg tablet 10 mg PO Q8 07/12/25 07/12/25 Unknown Active Medications Generic Name Dose Route Start Last Admin Trade Name Moses PRN Reason Stop Dose Admin Bupropion HCl 200 mg 07/13/25 09:00 07/14/25 07:42 Bupropion Sr 100 Mg Tabcr PO 08/12/25 08:59 200 mg QAM GOLD Administration Clopidogrel Bisulfate 75 mg 07/12/25 21:00 07/13/25 20:17 Clopidogrel Bisulfate 75 Mg Tab PO 08/11/25 20:59 75 mg QPM GOLD Administration Escitalopram Oxalate 20 mg 07/14/25 10:45 07/14/25 12:11 Escitalopram Oxalate 20 Mg Tab PO 08/13/25 10:44 20 mg QAM GOLD Administration Fluticasone Furoate 1 puffs 07/13/25 09:00 07/14/25 07:41 Fluticasone Furoate 200mcg 14 Puffs/Inhaler INH 08/12/25 08:59 1 puffs DAILY GOLD Administration Gabapentin 300 mg 07/13/25 09:00 07/14/25 07:41 Gabapentin 300 Mg Cap PO 08/12/25 08:59 300 mg QAM GOLD Administration Gabapentin 600 mg 07/13/25 09:00 07/14/25 07:41 Gabapentin 600 Mg Tab PO 08/12/25 08:59 600 mg QAM GOLD Administration Gabapentin 1,200 mg 07/12/25 21:00 07/13/25 20:17 Gabapentin 600 Mg Tab PO 08/11/25 20:59 1,200 mg HS GOLD Administration Gabapentin 600 mg 07/13/25 12:00 07/14/25 12:12 Gabapentin 600 Mg Tab PO 08/12/25 11:59 600 mg DAILY@1200 GOLD Administration Piperacillin Sod/Tazobactam Sod 4.5 gm in 100 mls @ 25 mls/hr 07/12/25 13:00 07/14/25 08:19 Zosyn IV 07/22/25 12:59 Infused Q8H GOLD Infusion Protocol Insulin Aspart 0 units 07/12/25 16:30 07/14/25 12:11 Insulin Aspart Per Unit Charge SC 08/11/25 16:29 6 units ACHS GOLD Administration Insulin Glargine 15 units 07/14/25 09:00 07/14/25 08:18 Lantus Per Unit Charge SQ 08/11/25 16:29 15 units DAILY GOLD Administration Mirtazapine 15 mg 07/12/25 21:00 07/13/25 20:19 Mirtazapine Tab 15 Mg Tab PO 08/11/25 20:59 15 mg HS GOLD Administration Miscellaneous 1 each 07/12/25 16:00 07/14/25 08:07 Yjiolhjam-Vbqsymgh-Rraklyn Ala [Biktarvy] 50-200-25 Mg Order Awaiting Action N/A 08/11/25 15:59 Not Given QS GOLD Montelukast Sodium 10 mg 07/12/25 21:00 07/13/25 20:17 Montelukast Sodium 10 Mg Tablet PO 08/11/25 20:59 10 mg HS GOLD Administration Pantoprazole Sodium 40 mg 07/13/25 09:00 07/14/25 07:42 Pantoprazole 40 Mg Tab PO 08/12/25 08:59 40 mg QAM GOLD Administration Prazosin HCl 1 mg 07/12/25 21:00 07/13/25 20:18 Prazosin Hcl 1 Mg Cap PO 08/11/25 20:59 1 mg HS GOLD Administration Rivaroxaban 20 mg 07/12/25 21:00 07/13/25 20:18 Rivaroxaban 20 Mg Tab PO 08/11/25 20:59 20 mg HS GOLD Administration Rosuvastatin Calcium 10 mg 07/12/25 21:00 07/13/25 20:18 Rosuvastatin Calcium 10 Mg Tab PO 08/11/25 20:59 10 mg HS GOLD Administration (3) Pneumonia of both lower lobes Pneumonia type: due to unspecified organism Qualified Code(s): J18.9 - Pneumonia, unspecified organism
[2025-07-15 07:05] LABS: Hematocrit (blood only) 34.9 % (37.0-47.0); Hemoglobin 9.1 g/dl (12.0-16.0); Immature Granulocytes # (auto) 0.06 K/uL (0.01-0.20); Immature Granulocytes % (auto) 0.6 %; Mean Corpuscular Hemoglobin 19.8 pg (25.0-34.0); Mean Corpuscular Volume 76.0 fL (80.0-100.0); Platelet Count 515 K/uL (130-400); RDW Standard Deviation 54.2 fL (36.4-46.3); Red Blood Count 4.59 M/uL (4.20-5.40); White Blood Count 10.26 K/ul (4.8-10.8)
[2025-07-15 07:24] LABS: Anion Gap 10.0 (3-11); Blood Urea Nitrogen 9.0 mg/dl (6-23); Calcium 8.8 mg/dl (8.6-10.3); Carbon Dioxide 24.0 mmol/L (21-32); Chloride 109.0 mmol/L (98-107); Creatinine Clr Calc Pharmacy 66.3 ml/min; Glucose 109.0 mg/dl (70-99(Fasting)); Potassium 3.2 mmol/L (3.5-5.1); Sodium 143.0 mmol/L (136-145)
[2025-07-15 07:43] LABS: Hypochromasia Present; Microcytosis Present; Ovalocytes 1+; Polychromasia 1+
--- NOTE | 2025-07-15 08:15 | Pharmacy Report ---
Pharmacy Glycemic Short Note 2 - Date of Service July 15, 2025 - Glycemic Short BSG Results (Last 24 hours): 07/14/25 07/14/25 07/14/25 11:24 16:13 20:52 Glucose POC Glucose 141 H 90 115 H 07/15/25 07/15/25 06:20 07:18 Glucose 109 H POC Glucose 130 H OUTPATIENT ANTIDIABETIC REGIMEN: * Lantus 28 units SC HS * Novolog SSI SC AC * Jardiance 10 mg PO AM HbA1c: * 5.5% (05/31/25) ASSESSMENT: 07/15: * Patient received 35 units of insulin yesterday, 15 of which were basal. BSGs were: 327-911-00-115 mg/dL. * Basal insulin was increased by 20% yesterday. Fasting BSG today is at goal. No changes necessary. * Trend downward in postprandial BSGs yesterday, will loosen both correction factor and carb ratio this AM. * Tolerating T2DM diet. Remains on Zosyn. No other stressors. 07/13: * 59 yo F admitted on 07/12/25 secondary to sepsis. Pharmacy has been consulted to assist with inpatient glycemic management. Patient is a Type 2 diabetic as an outpatient. Please refer to outpatient regimen and most recent HbA1c above. * Ordered a T2DM diet. Did not eat much yesterday, but did tolerate breakfast this AM. Was given a reduced home dose of basal upon admit yesterday. Novolog was started based on weight/stress of 2-3. BSGs trended down nicely yesterday: 063-144-324-142 mg/dL. * Fasting BSG this AM was 126 mg/dL. Will reduce basal dose by 20% today. No change to Novolog for now. * Stressors remain stable. No further steroids to be administered. On Zosyn for GI infection. PLAN FOR INPATIENT GLYCEMIC CONTROL: * Hold outpatient oral diabetes medications * Basal insulin * Lantus 15 units SC AM * Bolus insulin * NovoLog per scale ACHS or Q6hrs while NPO * Goal Range: Low 110 mg/dL - High 140 mg/dL * Correction Factor: 30 mg/dL/unit * Nutritional / Prandial insulin per carb ratio of 1 unit per 10 grams CHO consumed
[2025-07-15] MEDS: POTASSIUM CHLORIDE / WTR 10 MEQ/100 ML PLCT IV SCH (08:49)
--- NOTE | 2025-07-15 09:28 | Discharge Summary ---
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 Escalera at [facility], history of reocclusion of SMA s/p mechanical thrombectomy of SMA with placement of 4 stents on 06/15/[address] Escalera at [facility] on Xarelto and Plavix, history of type B aortic dissection of the distal aortic arch [healed on repeat CTA abd/pelvis completed on 11/21/22], HIV on Biktarvy, hepatic steatosis, age-related osteoporosis, generalized osteoarthritis, migraines, depression/VICKIE and other problems as outlined in the chart who presented to the ED for evaluation of L arm pain and paresthesias. History obtained from the patient, discussion with ED provider and associated chart review. Patient seen at bedside in the ED with Dr. Boudreaux. Of note, recent confinement under our service 06/08/25-06/11/25 due to ABLA s/p 3U PRBCs ISO a newly discovered colonic mass and RUL pulmonary nodule concerning for malignancy. Underwent colonoscopy on 06/10/25 which revealed a >50mm polyp in the ascending colon (removed via hot snare), a medium (7-9mm) polyp in the descending colon (removed via cold snare). 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 Seen and evaluated by [facility] general surgery in the outpatient setting on 06/22/25 with recommendation to perform R hemicolectomy. Now s/p laparoscopic hand-assist R hemicolectomy on 06/30/[address] Jann Greenwood at [facility]. Postoperative course had been relatively uneventful up until last evening when she developed sudden LUE pain and paraesthesias. No precipitating injuries or inciting events. Was sitting down watching TV when this suddenly started. No reported radiation of pain or paraesthesias into the neck. Upon further questioning, patient endorses having a nonproductive cough for past 4-5 days as well. No recorded fevers at home but patient does report "feeling hot" several times over the past few days. Denies any SOB or chest pain. Former smoker. Quit smoking last month following her confinement under our service. Moving bowels okay. Following a low-fiber diet. Denies any N/V. No urinary complaints. Endorses her surgical sites had reportedly been healing well. Has 3 laparoscopic sites - 1 large incision site to the L of the belly button, 1 small incision in the LLQ and 1 small incision toward the epigastrium. In the ED today, it was noted that the larger incision on her abdomen was draining purulent fluid from its most superior aspect. Plus there is some erythema surrounding the larger incision. Patient had not noticed these changes at home. Her incision sites had been draining minimal serous fluid beforehand but there was no erythema. These incisions are not tender to palpation. Admission Exam Per Admitting Provider VITALS: Vitals are noted on the nurse's note and reviewed by myself. Vital signs with tachycardia GENERAL: White female who appears mildly uncomfortable secondary to her stated complaint. HEAD: Normocephalic atraumatic. NECK: Supple without nuchal rigidity. No lymphadenopathy. No thyromegaly. Cervical spine is nontender. HEART: Tachycardic rate and rhythm without murmurs gallops or rubs. LUNGS: Clear to auscultation bilaterally without wheezes, rales or rhonchi. No retractions or accessory muscle use. ABDOMEN: Positive normal bowel sounds x 4. Soft, nontender, without masses or organomegaly. Mild serous drainage noted from surgical wounds MUSCULOSKELETAL: No muscle atrophy, erythema, or edema noted. Full range of motion in all extremities. No tenderness to palpation. NEURO: Patient was alert and oriented to person place and time. CN II through XII grossly intact. No focal neurological deficits. GCS 15. SKIN: The skin was without rashes, erythema, edema, or bruising. Capillary refill less than 2 seconds. Principal Diagnosis #Severe sepsis POA #Bilateral lower lobe PNA c/f likely HAP Discharge Exam GENERAL: Alert and oriented x3. NAD, on RA. HEENT: No pallor, no icterus. Pupils equal, round and reactive to light. Oral mucosa moist. NECK: No JVD, no neck masses. HEART: S1 and S2 heard. Regular rate and rhythm. No murmur, no gallop. RESPIRATORY SYSTEM: Normal AP diameter. No accessory muscle use. No wheezing, no crackles. ABDOMEN: Soft, bowel sounds present, nontender, no distention. minimal incisional erythema along the borders, non tender, no purulence noted. Upper pole of incision site w/ likely superficial yellow slough/necrosis CENTRAL NERVOUS SYSTEM: No facial droop. Speech is clear. Obeys simple commands. Moves extremities. EXTREMITIES: No edema, no erythema seen. Discharge Data Allergies Allergy/AdvReac Type Severity Reaction Status Date / Time levofloxacin AdvReac Intermediate Nausea/Vomiting Verified 06/08/25 13:47 "extreme" Consultations 07/12/25 12:15 ED Decision to Admit Stat 07/12/25 13:12 Consult General Surgery Routine 07/13/25 11:26 Consult Infectious Diseases Routine Ordered Studies 07/12/25 02:53 CT cervical spine wo con Stat CT head/brain wo con Stat 07/12/25 03:18 CT abd pelvis IV con only Stat CT angio chest PE protocol Stat 07/12/25 06:05 MRI Cervical [MR cervical spine wo/w con] Stat Hospital Course (1) Severe sepsis: (2) Pneumonia of both lower lobes: (3) Infected surgical wound: (4) S/P laparoscopic right hemicolectomy: (5) Pain of left upper extremity: (6) Arm paresthesia, left: Plan Patient is a medically complex 59y/o F with PMHx significant for insulin- requiring DM type II [Hgb A1c 5.5% 1mo ago], diabetic polyneuropathy, HLD, hyperparathyroidism, history of thyroid nodule, mild persistent asthma, NATHALY on CPAP HS, 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 Escalera at [facility], history of reocclusion of SMA s/p mechanical thrombectomy of SMA with placement of 4 stents on 06/15/[address] Escalera at [facility] on Xarelto and Plavix, history of type B aortic dissection of the distal aortic arch [healed on repeat CTA abd/pelvis completed on 11/21/22], HIV on Biktarvy, hepatic steatosis, age-related osteoporosis, generalized osteoarthritis, migraines, depression/VICKIE and other problems as outlined in the chart who presented to the ED for evaluation of L arm pain and paresthesias. History obtained from the patient, discussion with ED provider and associated chart review. Recent confinement under our service 06/08/25-06/11/25 due to ABLA s/p 3U PRBCs ISO a newly discovered colonic mass and RUL pulmonary nodule concerning for malignancy. S/p colonoscopy on 06/10/25 which revealed a >50mm polyp in the ascending colon (removed via hot snare), a medium (7-9mm) polyp in the descending colon (removed via cold snare). 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 Seen and evaluated by [facility] general surgery in the outpatient setting on 06/22/25 with recommendation to perform R hemicolectomy. Now s/p laparoscopic hand-assist R hemicolectomy on 06/30/[address] Jann Greenwood at [facility]. #Severe sepsis POA #Bilateral lower lobe PNA c/f likely HAP --> given recent admissions, as per above #Likely Infected surgical wound --> large laparoscopic surgical incision on L aspect of abd w/ purulent drainage, surrounding erythema at presentation. #S/p laparoscopic R hemicolectomy on 06/30/[address] Jann Greenwood at [facility] At presentation, WBC 29.9k. LA 2.9 Pt w/ nonproductive cough x 4-5d, chills Chest CTA: no PE, multiple atelectatic bands with vascular crowding are noted involving BLL (new finding, sequelae of infection) CTAP: no abscess or new acute pathology. Wound cx obtained from abd -Purulent drainage from superior most aspect of large abd incision site, erythema surrounding large abd incision site (pics provided in PE section of note) at presentation -Wound care consult, re: address appropriate dressing recs, monitoring 07/12 Wound Cx +ve for Eneterobacter cloacae complex 07/12 Bl Cx 1 of 4 bottles: GPC in chains. MRSA nares neg. Repeat blood cx neg During the hospitalization, patient was admitted to telemetry floor. General surgery was consulted for comanagement. General surgery evaluated the patient; no signs of infection as per their evaluation. Patient was also evaluated by infectious disease who recommended ciprofloxacin and Augmentin at discharge. Patient was afebrile throughout this stay. She did not have any cough, chest pain or shortness of breath. Her surgical wounds were healing well. Patient was discharged home with instructions to follow-up with PCP, general surgery and infectious disease. #L arm pain and paraesthesias #Severe cervical spinal stenosis w/ nerve impingement Cervical spine CT: Large left-sided posterior disc osteophyte complexes at C4-C5 and C5-C6 levels causing moderate spinal canal stenosis and severe stenosis of left lateral recesses, compressing ipsilateral traversing nerve roots. Severe neural foraminal narrowing at C4-C5 level on left side, accentuated by facetal arthropathy, compressing exiting nerve root. Cervical spine MRI: Large posterior disc osteophyte complex at C4-C5 with caudal extension contributes to cause mild central canal stenosis with severe left lateral recess and moderate to severe left foraminal narrowing. Mild central canal stenosis is also present C5-C6. No significant marrow edema or abnormal enhancement. Case discussed b/n on-call ortho spine surgeon, Dr. Murrieta, and ED provider -Urgent surgical intervention not indicated at this time -Recommending IV steroids (s/p 10mg IV dexamethasone in ED) -Activity as tolerated -Realistically will need to consider possible surgical intervention once infection resolved if persistence of sx Patient reported improvement in her symptoms at the time of the discharge. Patient to follow-up with orthospine as outpatient. Please note the above document was generated using voice recognition software. It may contain grammatical, syntax or spelling errors. Any formal questions or concerns about the content, text or information contained within the body of this dictation should be directly addressed to the provider for clarification Total Time Total Time Spent Total Time Spent (In Minutes): 45 Total Time Includes: Examination of the Patient, Discharge Planning, Medication Reconciliation, Communication With Other Providers and Other Discharge Plan Discharge Items Patient Disposition: Home - Self-Care Reason For Visit: HAP, SEPSIS Discharge Diagnosis: #Severe sepsis POA #Bilateral lower lobe PNA c/f likely HAP Condition on Discharge: Fair Activity: Resume your previous activity Non-emergency contact: Primary Care Provider Call non-emergency contact if: you have any medication questions Follow-up/Referrals: Esther Olvera PA-C [Primary Care Provider] - (Date & Time 07/19/2025 1:00 PM Provider: Esther Olvera PA-C [facility], [facility]) Diet: Regular Addtl Attending Provider Instructions: You were admitted to the hospital with possible pneumonia. You are treated with antibiotic during the hospitalization. You are prescribed Augmentin and ciprofloxacin to be taken for 11 more days to complete the antibiotic course. Please follow-up with your primary care doctor as scheduled. Pending Studies at Discharge: No Stand-Alone Forms: My [facility], Smoking Cessation Medications and DC Order Prescriptions: New ciprofloxacin HCl 500 mg tablet 500 mg PO BID 11 Days Qty: 22 0RF amoxicillin-pot clavulanate 875-125 mg tablet 1 tab PO BID 11 Days Qty: 22 0RF Continued gabapentin 300 mg capsule 300 mg PO QAM Patient Comments: Take w/ 600mg capsule to equal 900mg every morning bupropion HCl [Wellbutrin SR] 200 mg tablet sustained-release 12 hr 200 mg PO QAM Patient Comments: Originally written for Bupropion 200mg: Take 200mg by mouth twice daily - 06/08/25 albuterol sulfate [Ventolin HFA] 90 mcg/actuation HFA aerosol inhaler 2 puffs INH Q6H PRN (Reason: Shortness Of Breath Or Wheezing) mirtazapine 15 mg tablet 15 mg PO HS acetaminophen 325 mg tablet 325 mg PO Q6 meclizine 25 mg tablet 25 mg PO TID PRN (Reason: Nausea And Vomiting) ondansetron 4 mg tablet,disintegrating 4 mg PO Q8 PRN (Reason: Nausea And Vomiting) oxycodone 10 mg tablet 10 mg PO Q8 gabapentin 600 mg tablet 600 - 1,200 mg PO TID Patient Comments: Take 600mg in the morning with 300mg to equal 900mg. Then take 600mg in the afternoon, then take 1200mg at bedtime - 06/08/25 Rx Instructions: Take 600mg in the morning with 300mg to equal 900mg. Then take 600mg in the afternoon, then take 1200mg at bedtime - 06/08/25 prazosin 1 mg capsule 1 mg PO HS Patient Comments: Originally written for Prazosin 1mmg by mouth at bedtime - 06/08/25 clopidogrel 75 mg tablet 75 mg PO QPM pantoprazole 20 mg tablet,delayed release (DR/EC) 20 mg PO QAM montelukast 10 mg tablet 10 mg PO HS fluticasone propionate 220 mcg/actuation HFA aerosol inhaler 2 puff INHALATION BID escitalopram oxalate 20 mg tablet 20 mg PO QAM insulin aspart U-100 [Novolog FlexPen U-100 Insulin] 100 unit/mL (3 mL) insulin pen 1 sliding scale dose SUBCUT TID Patient Comments: Add 1 unit for every 20 over 200BSG reading rosuvastatin 10 mg tablet 10 mg PO HS insulin glargine [Lantus Solostar U-100 Insulin] 100 unit/mL (3 mL) insulin pen 28 unit SUBCUT HS levocetirizine 5 mg tablet 2.5 mg PO QPM Patient Comments: Originally written for Prazosin 1mmg by mouth at bedtime - 06/08/25 Xarelto 20 mg tablet 20 mg PO HS Hold Instructions: Resume on 06/12/25. Jardiance 10 mg tablet 10 mg PO QAM Biktarvy 50-200-25 mg tablet 1 tab PO QAM alendronate 70 mg tablet 70 mg PO WK Discharge Orders: Discharge Order (Routine); Ordered 07/15/25 Ordered By: Osmel Robles Admission Data Admit Date/Time: 07/12/25 12:46 Attending Provider: Osmel Robles Admit Provider: Taz Boudreaux Primary Care Provider: Esther Olvera Other Providers: Taz Boudreaux; Darrius Bey; Dylan Bowen; Julito Barnett; Ryley Cornejo I.; Jesse Aguirre II; Precious Miranda; Puneet Munoz; Jose Knapp; Vicky Patel
[2025-07-15 10:47] LABS: HIV 1 RNA PCR Copies/ML NOT DETECTED copies/mL (NOT DETECTED)
[2025-07-15 11:51] VITALS: BP 132/78; PULSE 90; RESP 18; TEMP 98.2; O2SAT 99
== END 2025-07-15 13:35 | disposition home or self-care (01) | DRG 871 ==
LOC: ED 02:43 → 2E 12:46 → SUATTDRO 12:46 → 2E 15:33